=== PATIENT | female | born 1955 | race Caucasian/White ===

== ENCOUNTER 2020-10-29 07:51 | Outpatient (REF) | payer MEDICARE, SELFPAY ==
[2020-10-29 11:56] LABS: Alanine Aminotransferase 12 U/L (0-31); Albumin Level 4.1 g/dL (3.5-5.0); Alkaline Phosphatase 59 U/L (39-117); Anion Gap 15 (12-20); Aspartate Amino Transferase 8 U/L (5-31); Bilirubin Total 0.7 mg/dL (0.0-1.0); Blood Urea Nitrogen 20 mg/dL (9-16); Calcium 9.5 mg/dL (8.4-10.2); Carbon Dioxide 29 mmol/L (22-29); Chloride 99 mmol/L (96-108); Cholesterol 205 mg/dL; Estimated Glomerular Filt Rate > 60; Glucose Fasting 120 mg/dL (60-99); HDL Cholesterol 72 mg/dL; LDL Cholesterol Calculated 114 mg/dl; Potassium 3.7 mmol/l (3.3-5.1); Sodium 139 mmol/L (135-145); Total Protein 6.5 g/dL (6.5-8.0); Triglycerides 95 mg/dL
[2020-10-29 12:08] LABS: TSH reflex Free T4 0.73 mIU/mL (0.32-4.0)
== END 2020-10-29 07:52 | disposition home or self-care (01) ==
LOC: HO.HMGCLDS 07:51
PROVIDERS: PCP Nurse Practitioner Family; Visit Provider Nurse Practitioner Family
DX: I10 Essential (primary) hypertension (principal); M81.0 Age-related osteoporosis without current pathological fracture
CPT/HCPCS: 80053; 80061; 82306; 83735; 84443

== ENCOUNTER 2020-12-06 10:18 | Outpatient (REF) | payer MEDICARE, SELFPAY ==
[2020-12-06 14:21] LABS: Prothrombin Time 11.9 SEC (10.8-13.0)
[2020-12-06 14:27] LABS: MANUAL DIFF FLAG NO; Partial Thromboplastin Time 29.8 SEC (24.1-38.0)
[2020-12-06 14:34] LABS: Basophils Absolute Auto 0.1 X10*3/uL (0.0-0.2); Basophils Percent Auto 0.5 % (0-2); Eosinophils Absolute Auto 0.2 X10*3/uL (0.0-0.4); Eosinophils Percent Auto 1.6 % (0-4); Hematocrit 41.4 % (37-47); Hemoglobin 13.7 g/dl (12.0-16.0); Imm Gran Abs Auto 0.04 X10*3/uL (0.00-0.03); Imm Gran Pct Auto 0.4 % (0.0-0.4); Lymphocytes Absolute Auto 4.4 X10*3/uL (1.2-4.9); Lymphocytes Percent Auto 42.9 % (20-40); Mean Corpuscular HGB Conc 33.1 g/dl (31.0-35.0); Mean Corpuscular Hemoglobin 29.7 pg (27.0-33.0); Mean Corpuscular Volume 89.8 fL (80-98); Mean Platelet Volume 10.7 fL (9.4-12.3); Monocytes Absolute Auto 0.8 X10*3/uL (0.1-1.2); Monocytes Percent Auto 7.4 % (2-11); Neutrophils Absolute Auto 4.9 X10*3/uL (2.0-8.3); Neutrophils Percent Auto 47.2 % (45-73); Platelet Count 490 X10*3/uL (160-400); Red Blood Count 4.61 X10*6/uL (4.20-5.50); Red Cell Distribution Width 13.1 % (11.0-16.0); White Blood Count 10.4 X10*3/uL (4.8-10.8)
[2020-12-06 15:17] LABS: Estimated Average Glucose 137 mg/dL; Hemoglobin A1c % 6.4 %
== END 2020-12-06 10:19 | disposition home or self-care (01) ==
LOC: HO.10HDL 10:18
PROVIDERS: Visit Provider Nurse Practitioner Family
DX: R23.8 Other skin changes (principal); R73.01 Impaired fasting glucose; R79.89 Other specified abnormal findings of blood chemistry
CPT/HCPCS: 36415; 83036; 85025; 85610; 85730

== ENCOUNTER 2020-12-20 07:37 | Outpatient (REF) | payer MEDICARE, SELFPAY ==
[2020-12-20 10:14] LABS: MANUAL DIFF FLAG NO
[2020-12-20 10:19] LABS: Basophils Percent Auto 0.5 % (0-2); Eosinophils Absolute Auto 0.2 X10*3/uL (0.0-0.4); Eosinophils Percent Auto 1.9 % (0-4); Hemoglobin 13.6 g/dl (12.0-16.0); Imm Gran Abs Auto 0.03 X10*3/uL (0.00-0.03); Imm Gran Pct Auto 0.3 % (0.0-0.4); Lymphocytes Absolute Auto 4.4 X10*3/uL (1.2-4.9); Lymphocytes Percent Auto 50.5 % (20-40); Mean Corpuscular Hemoglobin 30.1 pg (27.0-33.0); Mean Corpuscular Volume 88.5 fL (80-98); Mean Platelet Volume 10.9 fL (9.4-12.3); Monocytes Absolute Auto 0.6 X10*3/uL (0.1-1.2); Monocytes Percent Auto 6.9 % (2-11); Neutrophils Absolute Auto 3.5 X10*3/uL (2.0-8.3); Neutrophils Percent Auto 39.9 % (45-73); Platelet Count 449 X10*3/uL (160-400); Red Blood Count 4.52 X10*6/uL (4.20-5.50); Red Cell Distribution Width 13.1 % (11.0-16.0); White Blood Count 8.8 X10*3/uL (4.8-10.8)
== END 2020-12-20 07:38 | disposition home or self-care (01) ==
LOC: HO.10HDL 07:37
PROVIDERS: Visit Provider Nurse Practitioner Family
DX: R79.89 Other specified abnormal findings of blood chemistry (principal)
CPT/HCPCS: 36415; 85025

== ENCOUNTER → 2021-01-02 11:00 | Outpatient (BNV) | payer MEDICARE, SELFPAY | PROVIDERS: Visit Provider Internal Medicine | DX: D47.3 Essential (hemorrhagic) thrombocythemia (principal) | CPT/HCPCS: 99202; 99203; 99213; 99214; G2211 ==

== ENCOUNTER → 2021-01-07 09:44 | Outpatient (BNVA) | payer MEDICARE, SELFPAY | PROVIDERS: PCP Nurse Practitioner Family; Visit Provider Internal Medicine Endocrinology, Diabetes & Metabolism | DX: M81.0 Age-related osteoporosis without current pathological fracture (principal); E55.9 Vitamin D deficiency, unspecified | CPT/HCPCS: 99202 ==

== ENCOUNTER 2021-01-09 07:59 | Outpatient (REF) | payer MEDICARE, SELFPAY ==
[2021-01-09 10:26] LABS: Calcium 9.5 mg/dL (8.4-10.2)
[2021-01-09 10:55] LABS: Free T4 (Free Thyroxine) 1.26 ng/dL (0.71-1.85); Thyroid Stimulating Hormone 2.37 uIU/mL (0.32-4.0); Vitamin D 25-OH Total 44.2 ng/mL (>30)
[2021-01-10 10:02] LABS: Calcium (PTHI) 9.6 mg/dL (8.6-10.4); PTHI 23 pg/mL (14-64)
[2021-01-13 13:42] LABS: VITAMIN D (1,25 OH) D3 69 pg/mL; Vit D (1,25-Dihydroxy) Total 69 pg/mL (18-72); Vitamin D (1,25 OH) D2 <8 pg/mL
[2021-01-13 21:27] LABS: N-Telopeptide 61 (see note); NTXCreaRU 150 mg/dL (20-275)
== END 2021-01-09 08:00 | disposition home or self-care (01) ==
LOC: HO.10HDL 07:59
PROVIDERS: Visit Provider Internal Medicine Endocrinology, Diabetes & Metabolism
DX: M81.0 Age-related osteoporosis without current pathological fracture (principal)
CPT/HCPCS: 36415; 82040; 82306; 82310; 82523; 82652; 83970; 84439; 84443

== ENCOUNTER 2021-01-11 10:40 | Outpatient (REF) | payer MEDICARE, SELFPAY ==
[2021-01-11 11:48] LABS: Creatinine, mg/dL 40.85
[2021-01-11 12:29] LABS: Creatinine, 24Hr Urine 0.8 G/Day (1.0-2.0); Total Volume 24 Hour Urine 1900 mL
[2021-01-12 16:37] LABS: Calcium, 24 Hr Urine 82 mg/24 h; Calcium/Creatinine Ratio 96 mg/g creat (30-275); Creatinine 24Hr Urine 0.86 g/24 h (0.50-2.15)
== END 2021-01-11 10:41 | disposition home or self-care (01) ==
LOC: HO.LNP 10:40
PROVIDERS: Visit Provider Internal Medicine Endocrinology, Diabetes & Metabolism
DX: M81.0 Age-related osteoporosis without current pathological fracture (principal)
CPT/HCPCS: 82340; 82570

== ENCOUNTER 2021-03-04 08:55 | Day surgery (SDC) | payer MEDICARE, SELFPAY ==
--- NOTE | 2021-02-27 08:24 | MHC.SHP ---
Pre-Procedural Eval Section A The patient is an INPATIENT: No The History & Physical has been completed within 30 days and I have reviewed it.: Yes Section B Chief Complaint: cataract Allergies: Allergies Allergy/AdvReac Type Severity Reaction Status Date / Time naproxen [From NAPROSYN] Allergy Severe GI PAIN Verified 11/07/20 09:53 oxycodone [OXYCODONE] Allergy Severe VOMITING Verified 11/07/20 09:53 sulfamethoxazole Allergy Severe FACIAL Verified 11/07/20 09:53 [From BACTRIM] SWELLING trimethoprim [From BACTRIM] Allergy Severe FACIAL Verified 11/07/20 09:53 SWELLING lisinopril [LISINOPRIL] Allergy Intermediate COUGH Verified 11/07/20 09:53 acetaminophen [Percocet] Allergy Unknown unknown Verified 11/07/20 09:53 Sulfa (Sulfonamide Allergy Unknown unknown Unverified 11/07/20 09:53 Antibiotics) Plan Diagnosis/Plan: Unchanged I have reviewed the history and physical and performed a pertinent physical examination on my patient. No changes have occurred unless specified.
[2021-02-27 14:55] VITALS: BMI 30.8
--- NOTE | 2021-03-01 12:51 | HO.ANESPROP2 ---
Documented by User: Gabrielle Olivaney 03/01/21 12:51 HPI - Anesthesia Eval Consult details Narrative: 65yo F for Right Cataract Extraction IOL Insertion PCP cleared No prev cataract on record [facility] Active Problems Active Problems: All Active Problems (Updated 02/27/21 @ 15:01 by Marleen Logan) Elevated fasting blood sugar (Acute) Bruises easily (Acute) Elevated platelet count (Acute) Pre-op evaluation (Acute) Vitamin D deficiency (Acute) Osteoporosis (Acute) HTN (hypertension) (Acute) Past Medical History Medical History Allergic rhinitis Arthritis Elevated cholesterol Elevated platelet count GERD (gastroesophageal reflux disease) HTN (hypertension) Hypothyroid Osteoporosis Vitamin D deficiency Family History Family History Father Emphysema, unspecified Mother No problems noted. Paternal Aunt Pancreatic cancer Maternal Grandmother Pancreatic cancer Paternal Aunt Stroke Paternal Uncle Stroke Heart disease Surgical History Surgical History H/O colonoscopy History of section History of excision of pilonidal cyst History of left knee replacement History of shoulder surgery Hx of arthroscopic knee surgery Social History Social History Are you a primary hospice home care coordinator to a significant other at home: No Do you presently have visiting nurse or other home services: No Alcohol intake: current Alcohol intake frequency: holidays/special occasions only Alcohol type: wine Smoking Status: Former smoker Tobacco Type: Cigarette Smoked in Last 30 Days: No Smoking Quit Date: 1998 Use of substances other than those prescribed or required for medical reasons: No Have you been hit, kicked, punched, or otherwise hurt by someone within the past year? If so, by whom?: No Advance Directives Information Provided: No Recently lost weight without trying: No Meds Allergies Allergy/AdvReac Type Severity Reaction Status Date / Time Influenza Virus Vaccines Allergy Severe arm Verified 02/27/21 15:06 swelling naproxen [From NAPROSYN] Allergy Severe GI PAIN Verified 11/07/20 09:53 oxycodone [OXYCODONE] Allergy Severe VOMITING Verified 11/07/20 09:53 sulfamethoxazole Allergy Severe FACIAL Verified 11/07/20 09:53 [From BACTRIM] SWELLING trimethoprim [From BACTRIM] Allergy Severe FACIAL Verified 11/07/20 09:53 SWELLING lisinopril [LISINOPRIL] Allergy Intermediate COUGH Verified 11/07/20 09:53 Home Medications Medication Instructions Recorded Confirmed Last Taken Type atenolol 25 mg tablet 25 mg PO DAILY 11/07/20 02/27/21 03/04/21 History fenofibrate 54 mg tablet 54 mg PO DAILY 11/07/20 02/27/21 Unknown History hydrochlorothiazide 25 mg tablet 25 mg PO DAILY 11/07/20 02/27/21 Unknown History omeprazole 40 mg capsule,delayed 40 mg PO DAILY 11/07/20 02/27/21 03/04/21 History release potassium chloride 10 mEq 10 meq PO QPM 11/07/20 02/27/21 Unknown History tablet,extended release(part/cryst) cetirizine 10 mg tablet 20 mg PO BID 01/07/21 02/27/21 03/04/21 History atorvastatin 60 mg PO DAILY 01/30/21 02/27/21 Unknown History Exam Exam Date and Time: March 01, 2021 1251 Height,Weight and Vital Signs: Height 5 ft 1 in Weight 73.936 kg Assessment and Plan Assessment Anesthesia Assessment: Chart Reviewed Documented by User: Gordon López 03/04/21 10:22 [facility] Past Medical History Medical History Allergic rhinitis Arthritis Elevated cholesterol Elevated platelet count GERD (gastroesophageal reflux disease) HTN (hypertension) Hypothyroid Osteoporosis Vitamin D deficiency Family History Family History Father Emphysema, unspecified Mother No problems noted. Paternal Aunt Pancreatic cancer Maternal Grandmother Pancreatic cancer Paternal Aunt Stroke Paternal Uncle Stroke Heart disease Surgical History Surgical History H/O colonoscopy History of section History of excision of pilonidal cyst History of left knee replacement History of shoulder surgery Hx of arthroscopic knee surgery Social History Social History Are you a primary hospice home care coordinator to a significant other at home: No Do you presently have visiting nurse or other home services: No Alcohol intake: current Alcohol intake frequency: holidays/special occasions only Alcohol type: wine Smoking Status: Former smoker Tobacco Type: Cigarette Smoked in Last 30 Days: No Smoking Quit Date: 1998 Use of substances other than those prescribed or required for medical reasons: No Have you been hit, kicked, punched, or otherwise hurt by someone within the past year? If so, by whom?: No Advance Directives Information Provided: No Recently lost weight without trying: No Meds Allergies Allergy/AdvReac Type Severity Reaction Status Date / Time Influenza Virus Vaccines Allergy Severe arm Verified 02/27/21 15:06 swelling naproxen [From NAPROSYN] Allergy Severe GI PAIN Verified 11/07/20 09:53 oxycodone [OXYCODONE] Allergy Severe VOMITING Verified 11/07/20 09:53 sulfamethoxazole Allergy Severe FACIAL Verified 11/07/20 09:53 [From BACTRIM] SWELLING trimethoprim [From BACTRIM] Allergy Severe FACIAL Verified 11/07/20 09:53 SWELLING lisinopril [LISINOPRIL] Allergy Intermediate COUGH Verified 11/07/20 09:53 Home Medications Medication Instructions Recorded Confirmed Last Taken Type atenolol 25 mg tablet 25 mg PO DAILY 11/07/20 02/27/21 03/04/21 History fenofibrate 54 mg tablet 54 mg PO DAILY 11/07/20 02/27/21 Unknown History hydrochlorothiazide 25 mg tablet 25 mg PO DAILY 11/07/20 02/27/21 Unknown History omeprazole 40 mg capsule,delayed 40 mg PO DAILY 11/07/20 02/27/21 03/04/21 History release potassium chloride 10 mEq 10 meq PO QPM 11/07/20 02/27/21 Unknown History tablet,extended release(part/cryst) cetirizine 10 mg tablet 20 mg PO BID 01/07/21 02/27/21 03/04/21 History atorvastatin 60 mg PO DAILY 01/30/21 02/27/21 Unknown History Exam Airway Mallampati Class: II TM Dist: >3cm Neck ROM: Full Loose/Missing/Broken Teeth: No Heart: [id number] Lungs: cta b/l Assessment and Plan Assessment Anesthesia Assessment: Anesthesia Plan Discussed, PAT Visit and Chart Reviewed Final Anesthetic Review NPO: Yes ASA Class: III Final Preanesthetic Review: No Changes in Pt Med Stat, Meds/Allgs Chart Reviewed, Consent Obtained/Reviewed and Anes Risks/Benef Reviewed Patient Risk: Intermediate Procedure Risk: Low Assessment/Block/Sedation in SS: Assess/Block/Sedation-SS Anesthetic Plan Anesthetic Plan: MAC: and Agree w/ Assess. and Plan Disposition: Standard PACU
[2021-03-04 09:52] VITALS: BP 155/66; PULSE 62; RESP 16; TEMP 36.8; O2SAT 98
[2021-03-04] MEDS: Tetracaine HCl/PF 0.5% Oph Sol 4 ML DROPS 1 DROP EYE-RIGHT (09:56)
[2021-03-04] MEDS: Tropicamide 1 % Ophth Sol 3 ML BTL 1 DROP EYE-RIGHT ×3 (09:57→10:06)
[2021-03-04] MEDS: Phenylephrine HCL 2.5% Oph SoL 2 ML BOTTLE 1 DROP EYE-RIGHT ×3 (10:00→10:08)
[2021-03-04] MEDS: Lactated Ringers 500 ML 50 ML IV (10:15)
--- NOTE | 2021-03-04 11:19 | HO.PNOPHT ---
Ophthalmology Procedure Procedure Date of Service: 03/04/21 Ophthalmology Viscoelastic: Shnana Salguerot Dual Pack Pro Ophthalmology Lenses: TECXIN [id number] (16) Procedure Notes: PREOPERATIVE DIAGNOSIS: Decreased visual acuity right eye secondary to cataract POSTOPERATIVE DIAGNOSIS: Same PROCEDURE: Right cataract extraction with intraocular lens insertion SURGEON: Umang Hannah M.D. ANESTHESIA: Topical/MAC ESTIMATED BLOOD LOSS: None COMPLICATIONS: None After obtaining informed consent, the patient was brought to the operating room suite and placed in the supine position. After adequate sedation per anesthesia, topical drops of Tetracaine were given to the right eye. The eye was then prepped and draped in the usual sterile fashion. The operating room microscope was then positioned over the operative eye and a lid speculum placed. A paracentesis was created. Viscoelastic was then instilled into the anterior chamber. A three plane incision was then created temporally, utilizing a 2.85 mm keratome. Capsulotomy forceps were then utilized to create a circular tear capsulotomy. Hydrodissection and hydrodelineation were carried out until adequate mobilization of the nucleus occurred. Phacoemulsification was then utilized to remove the dense central nucleus followed by removal of the cortical material utilizing the automated aspiration irrigation unit. Viscoelastic was instilled into the posterior capsular bag followed by placement of a posterior chamber intraocular lens without difficulty. The residual Viscoelastic was then removed utilizing the automated IA machine. The wound was checked and found to be watertight. The patient tolerated the procedure well and the lid speculum was removed. Intracameral injection of Vigamox 0.1 mL followed by a subtenon injection of Kenalog-40 0.2 mL were administered. The patient will be seen in the a.m.
[2021-03-04 11:20] VITALS: BP 140/60; PULSE 58; RESP 16; TEMP 37.1; O2SAT 100
[2021-03-04] MEDS: Acetaminophen 325 MG TABLET 650 MG PO (11:22)
== END 2021-03-04 12:09 | disposition home or self-care (01) ==
PROVIDERS: PCP Nurse Practitioner Family; Visit Provider Ophthalmology
PROC: (CPT 66985; principal; 2021-03-04 11:40)
DX: H25.11 Age-related nuclear cataract, right eye (principal); I10 Essential (primary) hypertension; I49.5 Sick sinus syndrome; Z79.899 Other long term (current) drug therapy; Z87.891 Personal history of nicotine dependence
CPT/HCPCS: 66984; J2250; J3300; V2632

== ENCOUNTER 2021-03-11 07:07 | Day surgery (SDC) | payer MEDICARE, SELFPAY ==
[2021-02-27 15:10] VITALS: BMI 30.8
--- NOTE | 2021-03-07 08:18 | MHC.SHP ---
Pre-Procedural Eval Section A The patient is an INPATIENT: No The History & Physical has been completed within 30 days and I have reviewed it.: Yes Section B Chief Complaint: cataract Allergies: Allergies Allergy/AdvReac Type Severity Reaction Status Date / Time Influenza Virus Vaccines Allergy Severe arm Verified 02/27/21 15:06 swelling naproxen [From NAPROSYN] Allergy Severe GI PAIN Verified 11/07/20 09:53 oxycodone [OXYCODONE] Allergy Severe VOMITING Verified 11/07/20 09:53 sulfamethoxazole Allergy Severe FACIAL Verified 11/07/20 09:53 [From BACTRIM] SWELLING trimethoprim [From BACTRIM] Allergy Severe FACIAL Verified 11/07/20 09:53 SWELLING lisinopril [LISINOPRIL] Allergy Intermediate COUGH Verified 11/07/20 09:53 Plan Diagnosis/Plan: Unchanged I have reviewed the history and physical and performed a pertinent physical examination on my patient. No changes have occurred unless specified.
--- NOTE | 2021-03-08 09:09 | HO.ANESPROP2 ---
Documented by User: Gabrielle Christy 03/08/21 09:10 HPI - Anesthesia Eval Consult details Narrative: 65yo F for Left Cataract Extraction IOL Insertion Right eye 03/04/21 with TIVA: Midaz 2 PMFSH Active Problems Active Problems: All Active Problems (Updated 02/27/21 @ 15:01 by Marleen Logan) Elevated fasting blood sugar (Acute) Bruises easily (Acute) Elevated platelet count (Acute) Pre-op evaluation (Acute) Vitamin D deficiency (Acute) Osteoporosis (Acute) HTN (hypertension) (Acute) Past Medical History Medical History Allergic rhinitis Arthritis Elevated cholesterol Elevated platelet count GERD (gastroesophageal reflux disease) HTN (hypertension) Hypothyroid Osteoporosis Vitamin D deficiency Family History Family History Father Emphysema, unspecified Mother No problems noted. Paternal Aunt Pancreatic cancer Maternal Grandmother Pancreatic cancer Paternal Aunt Stroke Paternal Uncle Stroke Heart disease Surgical History Surgical History (Updated 03/11/21 @ 08:24 by Noreen Gomez) H/O colonoscopy History of section History of excision of pilonidal cyst History of left knee replacement History of shoulder surgery Hx of arthroscopic knee surgery S/P right cataract extraction Social History Social History Are you a primary college and career counselor to a significant other at home: No Do you presently have visiting nurse or other home services: No Alcohol intake: current Alcohol intake frequency: holidays/special occasions only Alcohol type: wine Smoking Status: Former smoker Tobacco Type: Cigarette Smoked in Last 30 Days: No Smoking Quit Date: 1998 Use of substances other than those prescribed or required for medical reasons: No Have you been hit, kicked, punched, or otherwise hurt by someone within the past year? If so, by whom?: No Advance Directives Information Provided: No Recently lost weight without trying: No Meds Allergies Allergy/AdvReac Type Severity Reaction Status Date / Time Influenza Virus Vaccines Allergy Severe arm Verified 02/27/21 15:06 swelling naproxen [From NAPROSYN] Allergy Severe GI PAIN Verified 11/07/20 09:53 oxycodone [OXYCODONE] Allergy Severe VOMITING Verified 11/07/20 09:53 sulfamethoxazole Allergy Severe FACIAL Verified 11/07/20 09:53 [From BACTRIM] SWELLING trimethoprim [From BACTRIM] Allergy Severe FACIAL Verified 11/07/20 09:53 SWELLING lisinopril [LISINOPRIL] Allergy Intermediate COUGH Verified 11/07/20 09:53 Home Medications Medication Instructions Recorded Confirmed Last Taken Type atenolol 25 mg tablet 25 mg PO DAILY 11/07/20 02/27/21 03/04/21 History fenofibrate 54 mg tablet 54 mg PO DAILY 11/07/20 02/27/21 Unknown History omeprazole 40 mg capsule,delayed 40 mg PO DAILY 11/07/20 02/27/21 03/04/21 History release potassium chloride 10 mEq 10 meq PO QPM 11/07/20 02/27/21 Unknown History tablet,extended release(part/cryst) cetirizine 10 mg tablet 20 mg PO BID 01/07/21 02/27/21 03/04/21 History atorvastatin 60 mg PO DAILY 01/30/21 02/27/21 Unknown History Exam Exam Date and Time: March 08, [id number] Height,Weight and Vital Signs: Height 5 ft 1 in Weight 73.936 kg Assessment and Plan Assessment Anesthesia Assessment: Chart Reviewed Documented by User: Noreen Gomez 03/11/21 08:28 [facility] Past Medical History Medical History Allergic rhinitis Arthritis Elevated cholesterol Elevated platelet count GERD (gastroesophageal reflux disease) HTN (hypertension) Hypothyroid Osteoporosis Vitamin D deficiency Family History Family History Father Emphysema, unspecified Mother No problems noted. Paternal Aunt Pancreatic cancer Maternal Grandmother Pancreatic cancer Paternal Aunt Stroke Paternal Uncle Stroke Heart disease Family history of problems with anesthesia: No Surgical History Surgical History (Updated 03/11/21 @ 08:24 by Noreen Gomez) H/O colonoscopy History of section History of excision of pilonidal cyst History of left knee replacement History of shoulder surgery Hx of arthroscopic knee surgery S/P right cataract extraction History of Problems with Anesthesia: Yes (Was uncomfortable during right eye surgery) Social History Social History Are you a primary college and career counselor to a significant other at home: No Do you presently have visiting nurse or other home services: No Alcohol intake: current Alcohol intake frequency: holidays/special occasions only Alcohol type: wine Smoking Status: Former smoker Tobacco Type: Cigarette Smoked in Last 30 Days: No Smoking Quit Date: 1998 Use of substances other than those prescribed or required for medical reasons: No Have you been hit, kicked, punched, or otherwise hurt by someone within the past year? If so, by whom?: No Advance Directives Information Provided: No Recently lost weight without trying: No Meds Allergies Allergy/AdvReac Type Severity Reaction Status Date / Time Influenza Virus Vaccines Allergy Severe arm Verified 02/27/21 15:06 swelling naproxen [From NAPROSYN] Allergy Severe GI PAIN Verified 11/07/20 09:53 oxycodone [OXYCODONE] Allergy Severe VOMITING Verified 11/07/20 09:53 sulfamethoxazole Allergy Severe FACIAL Verified 11/07/20 09:53 [From BACTRIM] SWELLING trimethoprim [From BACTRIM] Allergy Severe FACIAL Verified 11/07/20 09:53 SWELLING lisinopril [LISINOPRIL] Allergy Intermediate COUGH Verified 11/07/20 09:53 Home Medications Medication Instructions Recorded Confirmed Last Taken Type atenolol 25 mg tablet 25 mg PO DAILY 11/07/20 02/27/21 03/04/21 History fenofibrate 54 mg tablet 54 mg PO DAILY 11/07/20 02/27/21 Unknown History omeprazole 40 mg capsule,delayed 40 mg PO DAILY 11/07/20 02/27/21 03/04/21 History release potassium chloride 10 mEq 10 meq PO QPM 11/07/20 02/27/21 Unknown History tablet,extended release(part/cryst) cetirizine 10 mg tablet 20 mg PO BID 01/07/21 02/27/21 03/04/21 History atorvastatin 60 mg PO DAILY 01/30/21 02/27/21 Unknown History Exam Height,Weight and Vital Signs: Vital Signs Temp Pulse Resp BP Pulse Ox 03/11/21 08:09 97.6 F 59 18 149/60 H 98 Airway Mallampati Class: III (Small mouth) TM Dist: >3cm Neck ROM: Full Heart: RRR Lungs: CTAB Assessment and Plan Assessment Anesthesia Assessment: Anesthesia Plan Discussed and Chart Reviewed Final Anesthetic Review NPO: Yes ASA Class: II Final Preanesthetic Review: No Changes in Pt Med Stat, Meds/Allgs Chart Reviewed, Consent Obtained/Reviewed and Anes Risks/Benef Reviewed Patient Risk: Low Procedure Risk: Low Assessment/Block/Sedation in SS: Assess/Block/Sedation-SS Anesthetic Plan Anesthetic Plan: MAC: Disposition: Standard PACU
[2021-03-11] MEDS: Tetracaine HCl/PF 0.5% Oph Sol 4 ML DROPS 1 DROP EYE-LEFT (08:05)
[2021-03-11] MEDS: Tropicamide 1 % Ophth Sol 3 ML BTL 1 DROP EYE-LEFT ×3 (08:07→08:29)
[2021-03-11 08:09] VITALS: BP 149/60; PULSE 59; RESP 18; TEMP 36.4; O2SAT 98
[2021-03-11] MEDS: Phenylephrine HCL 2.5% Oph SoL 2 ML BOTTLE 1 DROP EYE-LEFT ×3 (08:17→08:33)
[2021-03-11] MEDS: Lactated Ringers 500 ML 50 ML IV (08:22)
--- NOTE | 2021-03-11 09:23 | HO.PNOPHT ---
Ophthalmology Procedure Procedure Date of Service: 03/11/21 Ophthalmology Viscoelastic: Healon Duet Dual Pack Pro Ophthalmology Lenses: TECNIS [id number] (15.5) Procedure Notes: PREOPERATIVE DIAGNOSIS: Decreased visual acuity left eye secondary to cataract POSTOPERATIVE DIAGNOSIS: Same PROCEDURE: Left cataract extraction with intraocular lens insertion SURGEON: Umang Hannah M.D. ANESTHESIA: Topical/MAC ESTIMATED BLOOD LOSS: None COMPLICATIONS: None After obtaining informed consent, the patient was brought to the operation room suite and placed in the supine position. After adequate sedation per anesthesia, topical drops of Tetracaine were given to the left eye. The eye was then prepped and draped in the usual sterile fashion. The operating room microscope was then positioned over the operative eye and a lid speculum placed. A paracentesis was created. Viscoelastic was then instilled into the anterior chamber. A three plane incision was then created temporally, utilizing a 2.85 mm keratome. Capsulotomy forceps were then utilized to create a circular tear capsulotomy. Hydrodissection and hydrodelineation were carried out until adequate mobilization of the nucleus occurred. Phacoemulsification was then utilized to remove the dense central nucleus followed by removal of the cortical material utilizing the automated aspiration irrigation unit. Viscoat elastic was instilled into the posterior capsular bag followed by placement of a posterior chamber intraocular lens without difficulty. The residual Viscoat elastic was then removed utilizing the automated IA machine. The wound was check and found to be watertight. The patient tolerated the procedure well and the lid speculum was removed. Intracameral injection of Vigamox 0.1 mL followed by a subtenon injection of Kenalog-40 0.2 mL were administered. The patient will be seen in the a.m.
[2021-03-11 09:28] VITALS: BP 113/89; PULSE 65; RESP 15; TEMP 36.5; O2SAT 95
== END 2021-03-11 09:56 | disposition home or self-care (01) ==
PROVIDERS: PCP Nurse Practitioner Family; Visit Provider Ophthalmology
PROC: (CPT 66985; principal; 2021-03-11 09:10)
DX: H25.12 Age-related nuclear cataract, left eye (principal); H54.7 Unspecified visual loss; I10 Essential (primary) hypertension; Z79.899 Other long term (current) drug therapy; Z88.2 Allergy status to sulfonamides; Z88.8 Allergy status to other drugs, medicaments and biological substances; Z87.891 Personal history of nicotine dependence
CPT/HCPCS: 66984; J2250; J3010; J3300; V2632

== ENCOUNTER 2021-09-06 09:45 | Outpatient (REF) | payer MEDICARE, SELFPAY ==
--- NOTE | ~2021-09-06 | MM_ITS ---
EXAMINATION: MM DIAGNOSTIC DIGITAL BREAST TOMOSYNTHESIS, BILATERAL CLINICAL INFORMATION: Due for yearly. Also follow-up probable benign calcifications upper outer right breast. The lifetime risk of breast cancer based on the Tyrer-Cuzick Model is 3%. COMPARISON: Mammography: 08/28/2020, 12/07/2019, 06/01/2019, 05/25/2019 (BI-RADS 0), 04/19/2018 TECHNIQUE: Digital breast tomosynthesis is performed in both the craniocaudal and mediolateral oblique views along with computer-aided detection (CAD). Synthesized 2D images are generated from the tomosynthesis. Additional magnification right CC and magnification right ML views are obtained. FINDINGS: There are scattered areas of fibroglandular density (ACR BI-RADS breast composition Category b). Parenchymal pattern is similar to prior studies. There is no developing density or interval mass or architectural abnormality. The axilla and skin contours are unremarkable. Calcifications for follow-up mid upper outer right breast appears slightly coarser when compared with prior diagnostic exams. The appearances of probable fibroadenomatous changes. There are no interval suspicious calcifications. They are now considered to be benign. Results are provided to the patient at time of visit by the technologist. MM/MM tomosynthesis diagnostic BI IMPRESSION: 1. No mammographic evidence of malignancy. 2. Right breast calcifications for follow-up are slightly coarser over time suggesting fibroadenomatous change and now considered to be benign. ASSESSMENT: BI-RADS 2: Benign RECOMMENDATION: Routine annual mammography screening. This patient's information was entered into a reminder system with a target due date for their next mammogram.
== END 2021-09-06 09:46 | disposition home or self-care (01) ==
LOC: HO.MAMMO 09:45
PROVIDERS: Visit Provider Nurse Practitioner Family
DX: R92.1 Mammographic calcification found on diagnostic imaging of breast (principal)
CPT/HCPCS: 77062; 77066

== ENCOUNTER 2022-01-02 08:27 | Outpatient (REF) | payer MEDICARE, SELFPAY ==
[2022-01-02 10:34] LABS: Appearance Urine HAZY; Color Urine YELLOW; Glucose Urine UA NEG (NEG); Leukocyte Esterase Urine NEG (NEG); Nitrite Urine NEG (NEG); Specific Gravity - Urine 1.015 (1.005-1.025); Urine Blood NEG (NEG); Urine Ketones NEG (NEG); Urine Protein NEG (NEG-TRACE)
[2022-01-02 10:35] LABS: MANUAL DIFF FLAG NO
[2022-01-02 10:42] LABS: Basophils Percent Auto 0.2 % (0-2); Hematocrit 39.2 % (37.0-47.0); Hemoglobin 12.9 g/dl (12.0-16.0); Imm Gran Abs Auto 0.04 X10*3/uL (0.00-0.03); Imm Gran Pct Auto 0.3 % (0.0-0.4); Lymphocytes Absolute Auto 2.5 X10*3/uL (1.2-4.9); Lymphocytes Percent Auto 20.5 % (20-40); Mean Corpuscular HGB Conc 32.9 g/dl (31.0-35.0); Mean Corpuscular Hemoglobin 27.6 pg (27.0-33.0); Mean Corpuscular Volume 83.8 fL (80.0-98.0); Monocytes Absolute Auto 0.7 X10*3/uL (0.1-1.2); Monocytes Percent Auto 5.8 % (2-11); Neutrophils Absolute Auto 8.9 x10*3/uL (2.0-8.3); Neutrophils Percent Auto 73.2 % (45-73); Platelet Count 548 X10*3/uL (160-400); Red Blood Count 4.68 X10*6/uL (4.20-5.50); Red Cell Distribution Width 13.4 % (11.0-16.0); White Blood Count 12.1 X10*3/uL (4.8-10.8)
[2022-01-02 10:50] LABS: Alanine Aminotransferase 16 U/L (0-31); Albumin Level 4.3 g/dL (3.5-5.0); Alkaline Phosphatase 84 U/L (39-117); Anion Gap 13 (12-20); Aspartate Amino Transferase 11 U/L (5-31); Bilirubin Total 0.5 mg/dL (0.0-1.0); Blood Urea Nitrogen 18 mg/dL (9-16); C Reactive Protein 0.11 mg/dL (< or = 0.50); Calcium 10.2 mg/dL (8.4-10.2); Carbon Dioxide 27 mmol/L (22-29); Chloride 102 mmol/L (96-108); Cholesterol 197 mg/dL; Estimated Glomerular Filt Rate > 60; Glucose Fasting 119 mg/dL (60-99); HDL Cholesterol 57 mg/dL; LDL Cholesterol Calculated 116 mg/dl; Potassium 4.4 mmol/L (3.3-5.1); Rheumatoid Factor < 15.0 IU/mL (<15.0); Sodium 138 mmol/L (135-145); Total Protein 6.8 g/dL (6.5-8.0); Triglycerides 121 mg/dL
[2022-01-02 11:11] LABS: TSH reflex Free T4 1.07 uIU/mL (0.32-4.0); Vitamin D 25-OH Total 47.5 ng/mL (>30)
[2022-01-02 11:29] LABS: Erythrocyte Sedimentation Rate 5 MM/HR (0-20)
[2022-01-03 06:31] LABS: Lyme Abs Screen <0.90 index
[2022-01-03 16:57] LABS: IgA 257 mg/dL (70-320); IgG 657 mg/dL (600-1540); IgM 42 mg/dL (50-300)
[2022-01-03 17:51] LABS: Antibody to SS-A Antigen <1.0 NEG AI (<1.0 NEG); Antibody to SS-B Antigen <1.0 NEG AI (<1.0 NEG)
[2022-01-04 14:11] LABS: Anti Nuclear Antibody Screen POSITIVE (NEGATIVE)
[2022-01-06 16:26] LABS: Cyclic Citrullinated Peptide <16 UNITS
[2022-01-15 19:42] LABS: Histamine Release <16 % (<16); TSH 1.24 mIU/L (0.40-4.50); Thyroglobulin Abs <1 IU/mL (< OR = 1)
== END 2022-01-02 08:28 | disposition home or self-care (01) ==
LOC: HO.10HDL 08:27
PROVIDERS: Absent Provider Internal Medicine; Visit Provider Nurse Practitioner Family
DX: Z00.00 Encounter for general adult medical examination without abnormal findings (principal); E55.9 Vitamin D deficiency, unspecified; M81.0 Age-related osteoporosis without current pathological fracture; R52 Pain, unspecified; J01.81 Other acute recurrent sinusitis; J30.1 Allergic rhinitis due to pollen; J45.30 Mild persistent asthma, uncomplicated; L30.9 Dermatitis, unspecified; L29.9 Pruritus, unspecified; M25.50 Pain in unspecified joint
CPT/HCPCS: 36415; 80053; 80061; 81003; 82306; 82784; 84443; 85025; 85652; 86038; 86039; 86140; 86200; 86235; 86343; 86376; 86431; 86617; 86618; 86800

== ENCOUNTER 2022-01-09 12:09 | Outpatient (REF) | payer MEDICARE, SELFPAY ==
[2022-01-09 13:21] LABS: MANUAL DIFF FLAG NO
[2022-01-09 13:26] LABS: Basophils Absolute Auto 0.1 X10*3/uL (0.0-0.2); Basophils Percent Auto 0.6 % (0-2); Eosinophils Absolute Auto 0.1 X10*3/uL (0.0-0.4); Hematocrit 38.5 % (37.0-47.0); Hemoglobin 12.8 g/dl (12.0-16.0); Imm Gran Abs Auto 0.02 X10*3/uL (0.00-0.03); Imm Gran Pct Auto 0.2 % (0.0-0.4); Lymphocytes Absolute Auto 3.9 X10*3/uL (1.2-4.9); Lymphocytes Percent Auto 36.8 % (20-40); Mean Corpuscular HGB Conc 33.2 g/dl (31.0-35.0); Mean Corpuscular Hemoglobin 27.5 pg (27.0-33.0); Mean Corpuscular Volume 82.8 fL (80.0-98.0); Mean Platelet Volume 10.5 fL (9.4-12.3); Monocytes Absolute Auto 0.9 X10*3/uL (0.1-1.2); Neutrophils Absolute Auto 5.7 x10*3/uL (2.0-8.3); Neutrophils Percent Auto 53.4 % (45-73); Platelet Count 573 X10*3/uL (160-400); Red Blood Count 4.65 X10*6/uL (4.20-5.50); Red Cell Distribution Width 13.5 % (11.0-16.0); White Blood Count 10.6 X10*3/uL (4.8-10.8)
[2022-01-09 14:02] LABS: Appearance Urine CLEAR; Color Urine YELLOW; Glucose Urine UA NEG (NEG); Leukocyte Esterase Urine NEG (NEG); Nitrite Urine NEG (NEG); PH 6.5 (5.0-8.0); Specific Gravity - Urine 1.015 (1.005-1.025); Urine Blood NEG (NEG); Urine Ketones NEG (NEG); Urine Protein NEG (NEG-TRACE)
== END 2022-01-09 12:10 | disposition home or self-care (01) ==
LOC: HO.10HDL 12:09
PROVIDERS: Visit Provider Nurse Practitioner Family
DX: D72.829 Elevated white blood cell count, unspecified (principal)
CPT/HCPCS: 36415; 81003; 85025; 87086

== ENCOUNTER 2022-01-31 08:15 | Outpatient (REF) | payer MEDICARE, SELFPAY ==
--- NOTE | ~2022-01-31 | MM_ITS ---
EXAMINATION: BONE DENSITOMETRY CLINICAL INDICATION: Osteoporosis. COMPARISON: Previous BD dated 12/02/2019 and baseline BD dated 04/01/2007. TECHNIQUE: Using a [employer] DXA System (software version: 13.1) manufactured by [employer], dual-energy x-ray absorptiometry was performed of the lumbar spine and left hip. The images are of good technical quality. Summary results are attached. FINDINGS: AP SPINE L1-L4: Current: BMD 0.956 g/cm2, Z-score -0.5, T-score -1.9, osteopenia, 3.8% increase from previous, 15.4% decrease from baseline (<5% change is not significant). Prior: BMD 0.921 g/cm2. Baseline: BMD 1.130 g/cm2. LEFT FEMUR, NECK: Current: BMD 0.651 g/cm2, Z-score -1.4, T-score -2.8, osteoporosis. Prior: BMD 0.667 g/cm2. Baseline: BMD 0.980 g/cm2. LEFT FEMUR, TOTAL: Current: BMD 0.779 g/cm2, Z-score -0.7, T-score -1.8, osteopenia, 4.2% decrease from previous, 28.7% decrease from baseline (<5% change is not significant). Prior: BMD 0.813 g/cm2. Baseline: BMD 1.092 g/cm2. IDENTIFIED RISK FACTORS: Early menopause, family history (parent hip fracture), osteoporosis, secondary osteoporosis, Thiazide. HISTORY OF FRACTURE: None listed. MEDICATIONS: Vitamin D. MM/XR DEXA axial skeleton IMPRESSION: 1. DIAGNOSIS: Osteoporosis based on the lowest T-score value of -2.8 in the femoral neck applying World Health Organization criteria. 2. 10-YEAR FRACTURE RISK PREDICTION, FRAX: According to the guidelines, FRAX calculation should only be performed on patients in the osteopenia bone density category. Therefore, FRAX was not performed on this patient. 3. Treatment Recommendations: NOF guidelines recommend consideration for treatment in postmenopausal women and men age 50 and older presenting with the following: -A hip or vertebral (clinical or morphometric) fracture. -T-score less than or equal to -2.5 at the femoral neck or spine after appropriate evaluation to exclude secondary causes. -Low bone mass at the hip or spine and a 10-year fracture probability by FRAX of greater than or equal to 3% for hip fracture or greater than or equal to 20% for major osteoporotic fracture based on the [place] adapted WHO algorithm. 4. Other Recommendations: All treatment decisions require clinical judgment and consideration of individual patient factors, including patient preferences, comorbidities, previous drug use, risk factors not captured in the FRAX model (e.g. frailty, falls, vitamin D deficiency, increased bone turnover, interval significant decline in bone density) and possible under or overestimation of fracture risk by FRAX. Additional medical evaluation for secondary cause of low bone mineral density may be appropriate. FUTURE SCAN RECOMMENDATION: People with diagnosed cases of osteoporosis or at high risk for fracture should have regular bone mineral density tests. For patients eligible for Medicare, routine testing is allowed once every 2 years. The testing frequency can be increased to one year for patients who have rapidly progressing disease, those who are receiving or discontinuing medical therapy to restore bone mass, or have additional risk factors.
== END 2022-01-31 08:16 | disposition home or self-care (01) ==
LOC: HO.MAMMO 08:15
PROVIDERS: PCP Nurse Practitioner Family; Visit Provider Nurse Practitioner Family
DX: Z13.820 Encounter for screening for osteoporosis (principal); M81.0 Age-related osteoporosis without current pathological fracture; Z78.0 Asymptomatic menopausal state; Z79.899 Other long term (current) drug therapy
CPT/HCPCS: 77080

== ENCOUNTER 2022-07-10 08:16 | Outpatient (REF) | payer MEDICARE, SELFPAY ==
[2022-07-10 10:51] LABS: Appearance Urine CLEAR; Color Urine YELLOW; Glucose Urine UA NEG (NEG); Leukocyte Esterase Urine NEG (NEG); Nitrite Urine NEG (NEG); PH 7.5 (5.0-8.0); Specific Gravity - Urine 1.015 (1.005-1.025); Urine Blood NEG (NEG); Urine Ketones NEG (NEG); Urine Protein NEG (NEG-TRACE)
[2022-07-10 10:54] LABS: MANUAL DIFF FLAG NO
[2022-07-10 11:14] LABS: Basophils Absolute Auto 0.1 X10*3/uL (0.0-0.2); Basophils Percent Auto 0.8 % (0-2); Eosinophils Absolute Auto 0.3 X10*3/uL (0.0-0.4); Eosinophils Percent Auto 3.8 % (0-4); Hematocrit 38.4 % (37.0-47.0); Imm Gran Abs Auto 0.02 X10*3/uL (0.00-0.03); Imm Gran Pct Auto 0.3 % (0.0-0.4); Lymphocytes Absolute Auto 3.3 X10*3/uL (1.2-4.9); Lymphocytes Percent Auto 44.8 % (20-40); Mean Corpuscular HGB Conc 33.9 g/dl (31.0-35.0); Mean Corpuscular Hemoglobin 28.8 pg (27.0-33.0); Monocytes Absolute Auto 0.6 X10*3/uL (0.1-1.2); Monocytes Percent Auto 8.3 % (2-11); Neutrophils Absolute Auto 3.1 x10*3/uL (2.0-8.3); Platelet Count 426 X10*3/uL (160-400); Red Blood Count 4.52 X10*6/uL (4.20-5.50); Red Cell Distribution Width 13.8 % (11.0-16.0); White Blood Count 7.4 X10*3/uL (4.8-10.8)
[2022-07-10 11:42] LABS: TSH reflex Free T4 1.76 uIU/mL (0.32-4.0)
[2022-07-10 12:15] LABS: Alanine Aminotransferase 13 U/L (0-31); Alkaline Phosphatase 80 U/L (39-117); Anion Gap 19 (12-20); Aspartate Amino Transferase 14 U/L (5-31); Bilirubin Total 0.5 mg/dL (0.0-1.0); Blood Urea Nitrogen 8 mg/dL (9-16); Calcium 9.2 mg/dL (8.4-10.2); Carbon Dioxide 23 mmol/L (22-29); Chloride 100 mmol/L (96-108); Cholesterol 192 mg/dL; Estimated Glomerular Filt Rate > 60; Glucose Fasting 90 mg/dL (60-99); HDL Cholesterol 66 mg/dL; LDL Cholesterol Calculated 106 mg/dl; Sodium 138 mmol/L (135-145); Total Protein 6.6 g/dL (6.5-8.0); Triglycerides 102 mg/dL
== END 2022-07-10 08:17 | disposition home or self-care (01) ==
LOC: HO.10HDL 08:16
PROVIDERS: Visit Provider Nurse Practitioner Family
DX: I10 Essential (primary) hypertension (principal)
CPT/HCPCS: 36415; 80053; 80061; 81003; 84443; 85025

== ENCOUNTER 2022-07-24 12:17 | Outpatient (REF) | payer MEDICARE, SELFPAY | END 2022-07-24 12:18 | disposition home or self-care (01) | LOC: HO.10HDL 12:17 | PROVIDERS: Visit Provider Nurse Practitioner Family | DX: Z20.818 Contact with and (suspected) exposure to other bacterial communicable diseases (principal) | CPT/HCPCS: 87040 ==

== ENCOUNTER 2022-08-01 09:25 | Outpatient (REF) | payer MEDICARE, SELFPAY ==
--- NOTE | ~2022-08-01 | US_ITS ---
EXAMINATION: US VENOUS ULTRASOUND WITH DOPPLER LOWER EXTREMITY, LEFT CLINICAL INFORMATION: Pain and swelling COMPARISON: None TECHNIQUE: Ultrasound of the deep veins is performed from the hip to the calf with compression sonography and color and pulse Doppler assessment. Spectral analysis with color-flow imaging is performed. FINDINGS: There is normal venous compression and respiratory variation and augmented flow. The visualized common femoral vein, superficial femoral vein, profunda femoral vein, popliteal vein, and the trifurcation region shows no evidence of deep venous thrombosis. There is no significant popliteal fossa cyst. In the posterior left calf, some edematous tissue is seen without discrete fluid collections. If the patient's symptoms persist, followup ultrasound in 5 days 7 days might be of value to exclude proximal propagation from a non-visualized calf vein. US/US venous duplex LE IMPRESSION: No DVT demonstrated in the left lower extremity.
== END 2022-08-01 09:26 | disposition home or self-care (01) ==
LOC: HO.US 09:25
PROVIDERS: Visit Provider Nurse Practitioner Family
DX: L98.9 Disorder of the skin and subcutaneous tissue, unspecified (principal); M79.605 Pain in left leg; M79.89 Other specified soft tissue disorders
CPT/HCPCS: 93971

== ENCOUNTER 2022-09-15 07:36 | Outpatient (REF) | payer MEDICARE, SELFPAY ==
--- NOTE | ~2022-09-15 | MM_ITS ---
EXAMINATION: MM SCREENING DIGITAL BREAST TOMOSYNTHESIS, BILATERAL CLINICAL INFORMATION: Screening. Asymptomatic. The lifetime risk of breast cancer based on the Tyrer-Cuzick Model is 3%. COMPARISON: Mammography: 09/06/2021, 08/28/2020, 12/07/2019, 06/01/2019, 05/25/2019 TECHNIQUE: Digital breast tomosynthesis is performed in both the craniocaudal and mediolateral oblique views along with computer-aided detection (CAD). Synthesized 2D images are generated from the tomosynthesis. FINDINGS: There are scattered areas of fibroglandular density (ACR BI-RADS breast composition Category b). There are no significant masses, abnormal calcifications, or other abnormalities. Parenchymal pattern is similar to prior studies. There is no developing density or architectural abnormality. The axilla and skin contours are unremarkable. No significant changes. MM/MM tomosynthesis screening BI IMPRESSION: No mammographic evidence of malignancy. ASSESSMENT: BI-RADS 2: Benign RECOMMENDATION: Routine annual mammography screening. This patient's information was entered into a reminder system with a target due date for their next mammogram.
== END 2022-09-15 07:37 | disposition home or self-care (01) ==
LOC: HO.MAMMO 07:36
PROVIDERS: PCP Nurse Practitioner Family; Visit Provider Nurse Practitioner Family
DX: Z12.31 Encounter for screening mammogram for malignant neoplasm of breast (principal)
CPT/HCPCS: 77063; 77067

== ENCOUNTER 2022-10-28 08:08 | Outpatient (REF) | payer MEDICARE, SELFPAY ==
[2022-10-28 10:43] LABS: MANUAL DIFF FLAG NO
[2022-10-28 10:48] LABS: Basophils Percent Auto 0.5 % (0-2); Eosinophils Absolute Auto 0.2 X10*3/uL (0.0-0.4); Eosinophils Percent Auto 1.8 % (0-4); Hematocrit 38.4 % (37.0-47.0); Hemoglobin 13.1 g/dl (12.0-16.0); Imm Gran Abs Auto 0.02 X10*3/uL (0.00-0.03); Imm Gran Pct Auto 0.2 % (0.0-0.4); Lymphocytes Absolute Auto 3.8 X10*3/uL (1.2-4.9); Lymphocytes Percent Auto 44.3 % (20-40); Mean Corpuscular HGB Conc 34.1 g/dl (31.0-35.0); Mean Corpuscular Hemoglobin 29.2 pg (27.0-33.0); Mean Corpuscular Volume 85.5 fL (80.0-98.0); Mean Platelet Volume 10.5 fL (9.4-12.3); Monocytes Absolute Auto 0.6 X10*3/uL (0.1-1.2); Neutrophils Percent Auto 46.2 % (45-73); Platelet Count 458 X10*3/uL (160-400); Red Blood Count 4.49 X10*6/uL (4.20-5.50); Red Cell Distribution Width 14.9 % (11.0-16.0); White Blood Count 8.5 X10*3/uL (4.8-10.8)
[2022-10-28 10:57] LABS: Appearance Urine Clear; Color Urine Dark Yellow; Glucose Urine UA Negative (Negative); Leukocyte Esterase Urine Trace (Negative); Nitrite Urine Negative (Negative); Specific Gravity - Urine 1.025 (1.005-1.025); UMIC TRIGGER UACC YES; Urine Blood Negative (Negative); Urine Ketones Trace mg/dL (Negative); Urine Protein 30 (1+) mg/dL (Neg-Trace)
[2022-10-28 11:00] LABS: Bacteria Urine None Seen (None Seen); Hyaline Casts Urine 0-2 /LPF (0-2); RBC Urine 0-2 /HPF (0-2); WBC Urine 0-5 /HPF (0-5)
[2022-10-28 11:20] LABS: TSH reflex Free T4 1.86 uIU/mL (0.32-4.0)
[2022-10-28 11:27] LABS: Alanine Aminotransferase 15 U/L (0-31); Albumin Level 4.1 g/dL (3.5-5.0); Alkaline Phosphatase 76 U/L (39-117); Anion Gap 20 (12-20); Aspartate Amino Transferase 14 U/L (5-31); Bilirubin Total 0.8 mg/dL (0.0-1.0); Blood Urea Nitrogen 12 mg/dL (9-16); Calcium 9.8 mg/dL (8.4-10.2); Carbon Dioxide 23 mmol/L (22-29); Chloride 100 mmol/L (96-108); Cholesterol 203 mg/dL; Estimated Glomerular Filt Rate > 60; Glucose Fasting 100 mg/dL (60-99); HDL Cholesterol 64 mg/dL; LDL Cholesterol Calculated 119 mg/dl; Potassium 3.7 mmol/L (3.3-5.1); Sodium 139 mmol/L (135-145); Total Protein 6.7 g/dL (6.5-8.0); Triglycerides 102 mg/dL
== END 2022-10-28 08:09 | disposition home or self-care (01) ==
LOC: HO.10HDL 08:08
PROVIDERS: Visit Provider Nurse Practitioner Family
DX: I10 Essential (primary) hypertension (principal)
CPT/HCPCS: 36415; 80053; 80061; 81001; 84443; 85025

== ENCOUNTER 2022-12-17 11:31 | Outpatient (REF) | payer MEDICARE, SELFPAY ==
--- NOTE | ~2022-12-17 | XR_ITS ---
EXAMINATION: CHEST AND LEFT RIBS CLINICAL INFORMATION: Chest pain COMPARISON: Chest radiograph 02/28/2019 TECHNIQUE: Single view chest with 2 additional views left RIBS FINDINGS: No significant abnormalities seen involving the heart, lungs, mediastinum or bony thorax. The visualized left ribs appear unremarkable. No rib fractures are seen. XR/XR chest 2V IMPRESSION: No acute intrathoracic disease.
--- NOTE | ~2022-12-17 | XR_ITS ---
EXAMINATION: CHEST AND LEFT RIBS CLINICAL INFORMATION: Chest pain COMPARISON: Chest radiograph 02/28/2019 TECHNIQUE: Single view chest with 2 additional views left RIBS FINDINGS: No significant abnormalities seen involving the heart, lungs, mediastinum or bony thorax. The visualized left ribs appear unremarkable. No rib fractures are seen. XR/XR ribs LT 2V IMPRESSION: No acute intrathoracic disease.
== END 2022-12-17 11:32 | disposition home or self-care (01) ==
LOC: HO.HMGCX 11:31
PROVIDERS: PCP Nurse Practitioner Family; Visit Provider Internal Medicine
DX: R07.9 Chest pain, unspecified (principal)
CPT/HCPCS: 71046; 71100

== ENCOUNTER 2023-04-21 07:35 | Outpatient (REF) | payer MEDICARE, SELFPAY ==
[2023-04-21 10:40] LABS: MANUAL DIFF FLAG NO
[2023-04-21 10:50] LABS: Basophils Percent Auto 0.3 % (0-2); Eosinophils Absolute Auto 0.2 X10*3/uL (0.0-0.4); Eosinophils Percent Auto 2.8 % (0-4); Hematocrit 39.5 % (37.0-47.0); Hemoglobin 13.1 g/dl (12.0-16.0); Imm Gran Abs Auto 0.01 X10*3/uL (0.00-0.03); Imm Gran Pct Auto 0.1 % (0.0-0.4); Lymphocytes Absolute Auto 3.6 X10*3/uL (1.2-4.9); Lymphocytes Percent Auto 46.1 % (20-40); Mean Corpuscular HGB Conc 33.2 g/dl (31.0-35.0); Mean Corpuscular Hemoglobin 28.2 pg (27.0-33.0); Mean Corpuscular Volume 85.1 fL (80.0-98.0); Mean Platelet Volume 10.3 fL (9.4-12.3); Monocytes Absolute Auto 0.5 X10*3/uL (0.1-1.2); Monocytes Percent Auto 6.8 % (2-11); Neutrophils Absolute Auto 3.4 x10*3/uL (2.0-8.3); Neutrophils Percent Auto 43.9 % (45-73); Platelet Count 506 X10*3/uL (160-400); Red Blood Count 4.64 X10*6/uL (4.20-5.50); Red Cell Distribution Width 14.6 % (11.0-16.0); White Blood Count 7.8 X10*3/uL (4.8-10.8)
[2023-04-21 10:57] LABS: Appearance Urine Clear; Color Urine Yellow; Glucose Urine UA Negative (Negative); Leukocyte Esterase Urine Negative (Negative); Nitrite Urine Negative (Negative); Specific Gravity - Urine 1.015 (1.005-1.025); Urine Blood Negative (Negative); Urine Ketones Negative (Negative); Urine Protein Negative (Neg-Trace)
[2023-04-21 11:04] LABS: Alanine Aminotransferase 14 U/L (0-31); Albumin Level 4.1 g/dL (3.5-5.0); Alkaline Phosphatase 77 U/L (39-117); Anion Gap 15 (12-20); Aspartate Amino Transferase 12 U/L (5-31); Bilirubin Total 1.1 mg/dL (0.0-1.0); Blood Urea Nitrogen 11 mg/dL (9-16); Calcium 9.9 mg/dL (8.4-10.2); Carbon Dioxide 30 mmol/L (22-29); Chloride 96 mmol/L (96-108); Cholesterol 180 mg/dL; Estimated Glomerular Filt Rate > 60; Glucose Fasting 108 mg/dL (60-99); HDL Cholesterol 70 mg/dL; LDL Cholesterol Calculated 94 mg/dl; Potassium 3.5 mmol/L (3.3-5.1); Sodium 137 mmol/L (135-145); Total Protein 6.5 g/dL (6.5-8.0); Triglycerides 82 mg/dL
[2023-04-21 11:22] LABS: TSH reflex Free T4 1.61 uIU/mL (0.32-4.0); Vitamin D 25-OH Total 57.5 ng/mL (>30)
== END 2023-04-21 07:36 | disposition home or self-care (01) ==
LOC: HO.10HDL 07:35
PROVIDERS: Visit Provider Nurse Practitioner Family
DX: Z00.00 Encounter for general adult medical examination without abnormal findings (principal); Z20.2 Contact with and (suspected) exposure to infections with a predominantly sexual mode of transmission; Z78.0 Asymptomatic menopausal state; E78.5 Hyperlipidemia, unspecified; E55.9 Vitamin D deficiency, unspecified; I10 Essential (primary) hypertension
CPT/HCPCS: 36415; 80053; 80061; 81003; 82306; 84443; 85025

== ENCOUNTER 2023-09-17 07:45 | Outpatient (REF) | payer MEDICARE, SELFPAY ==
--- NOTE | ~2023-09-17 | MM_ITS ---
EXAMINATION: MM SCREENING DIGITAL BREAST TOMOSYNTHESIS, BILATERAL CLINICAL INFORMATION: Screening. Asymptomatic. COMPARISON: Mammography: 09/15/2022, 09/06/2021, 08/28/2020, 12/07/2019, 06/01/2019, 05/25/2019 (BI-RADS 0), 04/19/2018 TECHNIQUE: Digital breast tomosynthesis is performed in both the craniocaudal and mediolateral oblique views along with computer-aided detection (CAD). Synthesized 2D images are generated from the tomosynthesis. FINDINGS: There are scattered areas of fibroglandular density (ACR BI-RADS breast composition Category b). Stable benign type calcifications upper outer right breast. There are a few scattered benign type calcifications left breast, and benign vascular calcifications in both breasts. There is a skin lesion lower outer left breast. There are no suspicious masses, suspicious grouped calcifications, or areas of architectural distortion in either breast. The parenchymal pattern is stable from prior exams. MM/MM tomosynthesis screening BI IMPRESSION: No mammographic evidence of malignancy. Stable benign findings ASSESSMENT: BI-RADS BI-RADS 2 - Benign Findings RECOMMENDATION: Routine annual mammography screening. 1 year F/U This examination should not preclude the clinical evaluation of a suspicious palpable abnormality. This patient's information was entered into a reminder system with a target due date for their next mammogram.
== END 2023-09-17 07:46 | disposition home or self-care (01) ==
LOC: HO.MAMMO 07:45
PROVIDERS: PCP Nurse Practitioner Family; Visit Provider Nurse Practitioner Family
DX: Z12.31 Encounter for screening mammogram for malignant neoplasm of breast (principal)
CPT/HCPCS: 77063; 77067

== ENCOUNTER → 2023-09-17 07:45 | Outpatient (BNV) | payer MEDICARE, SELFPAY | PROVIDERS: PCP Nurse Practitioner Family; Visit Provider Radiology Diagnostic Radiology | DX: Z12.31 Encounter for screening mammogram for malignant neoplasm of breast (principal) | CPT/HCPCS: 77063; 77067 ==

== ENCOUNTER 2024-01-26 08:26 | Outpatient (REF) | payer MEDICARE, SELFPAY ==
[2024-01-26 10:25] LABS: MANUAL DIFF FLAG NO
[2024-01-26 10:35] LABS: Basophils Percent Auto 0.1 % (0-2); Eosinophils Percent Auto 0.4 % (0-4); Hematocrit 39.7 % (37.0-47.0); Hemoglobin 13.6 g/dl (12.0-16.0); Imm Gran Abs Auto 0.04 X10*3/uL (0.00-0.03); Imm Gran Pct Auto 0.4 % (0.0-0.4); Lymphocytes Absolute Auto 3.9 X10*3/uL (1.2-4.9); Lymphocytes Percent Auto 38.1 % (20-40); Mean Corpuscular HGB Conc 34.3 g/dl (31.0-35.0); Mean Corpuscular Hemoglobin 29.1 pg (27.0-33.0); Mean Corpuscular Volume 84.8 fL (80.0-98.0); Mean Platelet Volume 9.7 fL (9.4-12.3); Monocytes Absolute Auto 0.7 X10*3/uL (0.1-1.2); Monocytes Percent Auto 6.7 % (2-11); Neutrophils Absolute Auto 5.6 x10*3/uL (2.0-8.3); Neutrophils Percent Auto 54.3 % (45-73); Platelet Count 508 X10*3/uL (160-400); Red Blood Count 4.68 X10*6/uL (4.20-5.50); Red Cell Distribution Width 14.2 % (11.0-16.0); White Blood Count 10.3 X10*3/uL (4.8-10.8)
[2024-01-26 11:03] LABS: Appearance Urine Clear; Color Urine Dark Yellow; Glucose Urine UA Negative (Negative); Leukocyte Esterase Urine Negative (Negative); Nitrite Urine Negative (Negative); PH 7.5 (5.0-9.0); Urine Blood Negative (Negative); Urine Ketones Negative (Negative); Urine Protein Negative (Neg-Trace)
[2024-01-26 11:14] LABS: Alanine Aminotransferase 14 U/L (0-31); Albumin Level 4.1 g/dL (3.5-5.0); Alkaline Phosphatase 66 U/L (39-117); Anion Gap 11 (12-20); Aspartate Amino Transferase 10 U/L (5-31); Bilirubin Total 0.7 mg/dL (0.0-1.0); Blood Urea Nitrogen 14 mg/dL (9-16); Calcium 9.8 mg/dL (8.4-10.2); Carbon Dioxide 33 mmol/L (22-29); Chloride 98 mmol/L (96-108); Cholesterol 186 mg/dL (<200); Estimated Glomerular Filt Rate > 60; Glucose Fasting 127 mg/dL (60-99); HDL Cholesterol 74 mg/dL (>40); LDL Cholesterol Calculated 95 mg/dL (<100); Potassium 3.3 mmol/L (3.3-5.1); Sodium 139 mmol/L (135-145); Total Protein 6.6 g/dL (6.5-8.0); Triglycerides 87 mg/dL (<150)
[2024-01-26 11:18] LABS: TSH reflex Free T4 1.09 uIU/mL (0.32-4.0); Vitamin D 25-OH Total 64.2 ng/mL (>30)
[2024-01-27 16:01] LABS: Alanine Aminotransferase 13 U/L (0-31); Albumin Level 4.1 g/dL (3.5-5.0); Alkaline Phosphatase 67 U/L (39-117); Aspartate Amino Transferase 10 U/L (5-31); Bilirubin Direct 0.2 mg/dL (0.0-0.5); Bilirubin Total 0.7 mg/dL (0.0-1.0); Total Protein 6.7 g/dL (6.5-8.0)
== END 2024-01-26 08:27 | disposition home or self-care (01) ==
LOC: HO.10HDL 08:26
PROVIDERS: Referring Provider Physician Assistant Medical; Visit Provider Nurse Practitioner Family
DX: Z00.00 Encounter for general adult medical examination without abnormal findings (principal); E55.9 Vitamin D deficiency, unspecified; M81.0 Age-related osteoporosis without current pathological fracture; B35.4 Tinea corporis; L30.9 Dermatitis, unspecified; L98.8 Other specified disorders of the skin and subcutaneous tissue; L53.8 Other specified erythematous conditions; L29.8 Other pruritus; L26 Exfoliative dermatitis; B35.1 Tinea unguium; B35.3 Tinea pedis; Z78.0 Asymptomatic menopausal state
CPT/HCPCS: 36415; 80053; 80061; 80076; 81003; 82248; 82306; 84443; 85025

== ENCOUNTER 2024-02-08 10:19 | Outpatient (AMB) | payer MEDICARE, SELFPAY ==
[2024-02-08 10:21] VITALS: BP 136/80; PULSE 74; O2SAT 98; BMI 30.8
--- NOTE | 2024-02-08 10:21 | A.OFFPC_ITS ---
Vital Signs 02/08/24 10:21 Height 5 ft 1 in Weight 163 lb BMI 30.8 BP 136/80 Blood Pressure Location Lt brachial Position Sitting Pulse 74 Pulse Source Pulse Oximeter Pulse Oximetry (%) 98 Oxygen Delivery Method Room Air Intake Visit Reasons: PE Intake Note: Pt is here for physical exam [employer] Cutter Required: No Accompanied by: Self / Same As Patient Allergies Influenza Virus Vaccines Allergy (Severe, Verified 02/08/24 11:09) arm swelling naproxen [From NAPROSYN] Allergy (Severe, Verified 02/08/24 11:09) GI PAIN oxycodone [OXYCODONE] Allergy (Severe, Verified 02/08/24 11:09) VOMITING sulfamethoxazole [From BACTRIM] Allergy (Severe, Verified 02/08/24 11:09) FACIAL SWELLING trimethoprim [From BACTRIM] Allergy (Severe, Verified 02/08/24 11:09) FACIAL SWELLING lisinopril [LISINOPRIL] Allergy (Intermediate, Verified 02/08/24 11:09) COUGH Medication List - Last Reconciled 02/08/24 by KENIA Leone- amlodipine 5 mg PO DAILY amoxicillin 2,000 mg (4 x 500 mg) PO DAILY atenolol 25 mg PO DAILY 90 days atorvastatin 40 mg PO DAILY cetirizine (Zyrtec) 20 mg PO BID cholecalciferol (vitamin D3) 50 mcg PO DAILY 90 days diclofenac sodium 1% (Arthritis Pain (diclofenac)) 4 grams topical QID PRN 90 days ezetimibe 10 mg PO DAILY 90 days fenofibrate 54 mg PO DAILY hydrochlorothiazide 25 mg PO DAILY levothyroxine 50 mcg PO QAM linaclotide (Linzess) 72 mcg PO DAILY 90 days omeprazole 40 mg PO DAILY potassium chloride ER 10 mEq PO QPM terbinafine HCl 250 mg PO DAILY Tobacco use date assessed: 02/08/24 Fall risk assessment: 2 + Falls in past year Last assessed Fall Risk: 02/08/24 Dental Screening Dental Screen Date: 02/08/24 Did you have a dental visit in the last 12 months?: Yes Did you have a dental problem in the last 6 months where you did not have access to dental care?: No Was dental information given to patient?: Patient has dentist HPI PE HPI Details Pt is here for a PE. Labs were already performed. Colon screen is up to date. Mammo is up to date. Pt reports falling on 02/03 after tripping over a rug at [facility]. Pt lacerated her left knee and had this sutured (XR was neg for acute FX). She reports ongoing right knee pain. Will order XR. Pt denied hitting her head or any LOC. [facility] Medical History Arthritis Elevated platelet count GERD (gastroesophageal reflux disease) Allergic rhinitis Elevated cholesterol Vitamin D deficiency Hypothyroid Osteoporosis HTN (hypertension) Surgical History S/P right cataract extraction History of excision of pilonidal cyst Hx of arthroscopic knee surgery H/O colonoscopy History of left knee replacement History of shoulder surgery History of section Family History Father Emphysema, unspecified Mother No problems noted. Paternal Aunt Pancreatic cancer Maternal Grandmother Pancreatic cancer Paternal Aunt Stroke Paternal Uncle Stroke Heart disease Social History Household Members: Spouse Housing: House Are you a primary primary care md to a significant other at home: No Do you presently have visiting nurse or other home services: No Alcohol intake: current Alcohol intake frequency: holidays/special occasions only Alcohol type: wine Comment: Tylenol given Patient Tobacco Use Status: Former Tobacco user Quit Date: 1998 Tobacco use type: Cigarette Cigarette Packs Per Day: 1 e-Cigarette/Vaping Use: Never Used Second Hand Smoke Exposure: No Current occupational status: retired Cognitive needs: No Hearing needs: No Vision needs: No Questionnaire PHQ-9 Over the last 2 weeks, how often have you been bothered by any of the following problems? 1. Little interest or pleasure in doing things: not at all 2. Feeling down, depressed, or hopeless: not at all 3. Trouble falling or staying asleep, or sleeping too much: not at all 4. Feeling tired or having little energy: not at all 5. Poor appetite or overeating: not at all 6. Feeling bad about yourself - or that you are a failure or have let yourself or your family down: not at all 7. Trouble concentrating on things, such as reading the newspaper or watching television: not at all 8. Moving or speaking so slowly that other people could have noticed. Or the opposite - being so fidgety or restless that you have been moving around a lot more than usual: not at all 9. Thoughts that you would be better off or of hurting yourself in some way: not at all Total score: 0 Depression Screening Interpretation: Negative Depression Screening Done: Yes 67730 - PHQ-9 Billing: Yes Source: Developed by Drs. Rogelio Oh, Dayanna Redmond, Tommy Fregoso and colleagues, with an educational shay from [employer]. Thrive Questionnaire Date Thrive assessed: 02/08/24 I am a: Patient What is your living situation today?: I have a steady place to live Within the past 12 months, did the food you bought not last and you didn't have the money to get more?: Never true Within the past 12 months, did you worry whether your food would run out before you got money to buy more?: Never true Do you have trouble paying for medicines?: No Do you have trouble getting transportation to medical appointments?: No Do you have trouble paying your heating and electricity bill?: No Do you have trouble taking care of your child, family member or friend?: No Do you have trouble with day-to-day activities such as bathing, preparing meals, shopping, managing finances, etc.?: No Are you currently unemployed and looking for a job?: No Are you interested in more education?: No Please select the resources that you would like help with: None Currently or been in a relationship where the following occur: no concerns reported THRIVE Score: 0 AUDIT C Alcohol Use Questionnaire (AUDIT-C) 1. How often do you have a drink containing alcohol?: Monthly or less 2. How many drinks containing alcohol do you have on a typical day when you are drinking?: 1 or 2 3. How often do you have six or more drinks on one occasion?: Never Total Score: 1 ONIEL-7 AMB Questionnaire ONIEL-7 Date ONIEL - 7 assessed: 02/08/24 Feeling nervous, anxious, or on edge: 0 = Not at all Not being able to stop or control worryin = Not at all Worrying too much about different things: 0 = Not at all Trouble relaxin = Not at all Being so restless that it is hard to sit still: 0 = Not at all Becoming easily annoyed or irritable: 0 = Not at all Feeling afraid as if something awful might happen: 0 = Not at all Total ONIEL-7 score (0-4 normal; 5-9 mild; 10-14 moderate; 15-21 severe): 0 Source: Developed by Drs. Rogelio Oh, Dayanna Redmond, Tommy Fregoso and colleagues, with an educational shay from [employer]. ONIEL-7 Assessment Billing ONIEL-7 Assessment Tool: ONIEL-7 Assessment 77279 Review of Systems Const Denies chills and Denies fever(s) Eyes Denies blurry vision ENT Denies vertigo, Denies dizziness and Denies sore throat Card Denies chest pain at rest, Denies chest pain with activity, Denies diaphoresis, Denies dyspnea and Denies dyspnea on exertion Resp Denies cough, Denies dyspnea, Denies dyspnea on exertion and Denies wheezing GI Denies abdominal pain, Denies melena, Denies hematochezia, Denies constipation, Denies diarrhea and Denies loose stools Denies hematuria Musc Denies numbness and Denies tingling Skin/Breast Denies lesions Neuro Denies vertigo, Denies dizziness, Denies numbness and Denies tingling Psych Denies anxiety, Denies depression, Denies homicidal ideation, Denies suicidal ideation and Denies other (substance abuse) Aller/Immun Denies wheezing Physical exam (Primary Care) Vital Signs: Last Vital Signs Pulse 74 02/08/24 10:21 BP 136/80 02/08/24 10:21 Pulse Ox 98 02/08/24 10:21 Oxygen Delivery Method Room Air 02/08/24 10:21 BMI result Body Mass Index 30.8 Tobacco/Smoking Status: Tobacco use Status Tobacco use date assessed 02/08/24 02/08/24 10:22 Patient Tobacco Use Status Former Tobacco user 02/08/24 10:22 Tobacco use type Cigarette 02/08/24 10:22 e-Cigarette/Vaping Use Never Used 02/08/24 10:22 PHQ-9: PHQ-9 Score PHQ-9: Total score 0 02/08/24 10:38 Depression Screening Interpretation: Negative Thrive Assessment: Date of Thrive Assessment Date Thrive assessed 02/08/24 02/08/24 10:29 Currently or been in a relationship where the following occur: no concerns reported Const General: cooperative Nutritional Appearance: well nourished Orientation/consciousness: patient oriented x3 HENMT Head: Yes normal to inspection, Yes normocephalic and Yes atraumatic Ears: TM's normal bilaterally Eyes General: appearance normal, both eyes and all related structures Alignment and Position: alignment normal and position normal Neck Neck: Yes normal visual inspection and Yes no lymphadenopathy Thyroid: Thyroid normal Resp Effort & Inspection: normal respiratory effort Auscultation: clear to auscultation bilaterally Cardio Rate: regular rate Rhythm: regular rhythm Heart sounds: S1 normal heart sound present, S2 normal heart sound present and no murmurs GI Palpation (GI): Soft to palpation and nontender Auscultation: normal bowel sounds Skin Rashes: no rashes Neuro General: patient oriented x3, moves all extremities, no focal motor deficits and deep tendon reflexes 2+ bilaterally Romberg Test: Negative Extrem Other: sutured left knee, sutures intact with no signs of infection, well-approximated, ecchymosis surrounding and to anterior earl, right knee with small superficial abrasion. able to extend and flex RLE Psych Appearance: grossly normal Mental Status: mental status grossly normal Speech and movement: Normal speech and movement present Affect: normal affect Attitude: cooperative Thought process: Normal thought process present Thought content: Normal thought content present Insight: Good insight present (Psych) Judgement: Good judgement present (Psych) Assessment and Plan Assessment & Plan (1) Fall: Code(s): W19.XXXA - Unspecified fall, initial encounter Plan: XR ordered (2) Right knee pain: Code(s): M25.561 - Pain in right knee Plan: XR ordered (3) Physical exam: Code(s): Z00.00 - Encounter for general adult medical examination without abnormal findings Plan: Labs already performed (4) Elevated fasting blood sugar: Code(s): R73.01 - Impaired fasting glucose Plan: most likely related to steroid injection (5) Osteoporosis: Code(s): M81.0 - Age-related osteoporosis without current pathological fracture Qualifiers: Osteoporosis type: age-related Presence of current pathological fracture: without current pathological fracture Qualified Code(s): M81.0 - Age- related osteoporosis without current pathological fracture Plan The patient agreed to the use of a medical care administrator for this encounter. Scribed for SHABBIR Siu by Stormy Hyman medical care administrator, on 02/08/2024 at 10:30 EST. Orders: Orders XR DEXA axial skeleton Today M81.0 - Age-related osteoporosis without current pathological fracture Coding Level of Care Code Est Pt Prev Care >65y(25353) Diagnoses Fall W19.XXXA Right knee pain M25.561 Physical exam Z00.00 Elevated fasting blood sugar R73.01 Age-related osteoporosis without current pathological fracture M81.0 Osteoporosis type: age-related Presence of current pathological fracture: without current pathological fracture Additional Codes ONIEL-7 Assessment Billing - ONIEL-7 Assessment Tool: ONIEL-7 Assessment [id number] ([id number])
== END 2024-02-08 10:56 | disposition home or self-care (01) ==
PROVIDERS: Visit Provider Nurse Practitioner Family
DX: W19.XXXA Unspecified fall, initial encounter (principal); M25.561 Pain in right knee; Z00.00 Encounter for general adult medical examination without abnormal findings; R73.01 Impaired fasting glucose; M81.0 Age-related osteoporosis without current pathological fracture
CPT/HCPCS: 99397

== ENCOUNTER 2024-02-08 10:56 | Outpatient (REF) | payer MEDICARE, SELFPAY ==
--- NOTE | ~2024-02-08 | XR_ITS ---
EXAMINATION: XR KNEE, RIGHT CLINICAL INFORMATION: Right knee pain after fall. COMPARISON: None available. TECHNIQUE: Four views of the right knee. FINDINGS: Alignment is anatomic. Joint spaces are maintained. No displaced fracture. Quadriceps tendon enthesophyte. No significant joint effusion. XR/XR knee RT 4V IMPRESSION: No acute abnormality.
== END 2024-02-08 10:57 | disposition home or self-care (01) ==
LOC: HO.HMGCX 10:56
PROVIDERS: PCP Nurse Practitioner Family; Visit Provider Nurse Practitioner Family
DX: M25.561 Pain in right knee (principal); Z91.81 History of falling
CPT/HCPCS: 73564

== ENCOUNTER 2024-02-26 09:51 | Outpatient (REF) | payer MEDICARE, SELFPAY ==
--- NOTE | ~2024-02-26 | MM_ITS ---
EXAMINATION: BONE DENSITOMETRY CLINICAL INDICATION: Age-related osteoporosis without current pathological fracture. COMPARISON: Previous BD dated 01/31/2022 and baseline BD dated 04/01/2007. TECHNIQUE: Using a [employer] DXA System (software version: 13.1) manufactured by [employer], dual-energy x-ray absorptiometry was performed of the lumbar spine and left hip. The images are of good technical quality. Summary results are attached. FINDINGS: LEFT FEMUR, NECK: Current: BMD 0.680 g/cm2, Z-score -1.1, T-score -2.6, osteoporosis. Prior: BMD 0.651 g/cm2. Baseline: BMD 0.980 g/cm2. LEFT FEMUR, TOTAL: Current: BMD 0.798 g/cm2, Z-score -0.4, T-score -1.7, osteopenia, 2.4% increase from previous, 26.9% decrease from baseline (<5% change is not significant). Prior: BMD 0.779 g/cm2. Baseline: BMD 1.092 g/cm2. AP SPINE L1-L4: Current: BMD 0.936 g/cm2, Z-score -0.6, T-score -2.0, osteopenia, 2.1% decrease from previous, 17.2% decrease from baseline (<5% change is not significant). Prior: BMD 0.956 g/cm2. Baseline: BMD 1.130 g/cm2. IDENTIFIED RISK FACTORS: Early menopause, osteoporosis, thiazide, family history (parent hip fracture), secondary osteoporosis. HISTORY OF FRACTURE: None listed. MEDICATIONS: Vitamin D. MM/XR DEXA axial skeleton IMPRESSION: 1. DIAGNOSIS: Osteoporosis based on the lowest T-score value of -2.6 in the femoral neck applying World Health Organization criteria. 2. 10-YEAR FRACTURE RISK PREDICTION, FRAX: According to the guidelines, FRAX calculation should only be performed on patients in the osteopenia bone density category. Therefore, FRAX was not performed on this patient. 3. Treatment Recommendations: NOF guidelines recommend consideration for treatment in postmenopausal women and men age 50 and older presenting with the following: -A hip or vertebral (clinical or morphometric) fracture. -T-score less than or equal to -2.5 at the femoral neck or spine after appropriate evaluation to exclude secondary causes. -Low bone mass at the hip or spine and a 10-year fracture probability by FRAX of greater than or equal to 3% for hip fracture or greater than or equal to 20% for major osteoporotic fracture based on the [place] adapted WHO algorithm. 4. Other Recommendations: All treatment decisions require clinical judgment and consideration of individual patient factors, including patient preferences, comorbidities, previous drug use, risk factors not captured in the FRAX model (e.g. frailty, falls, vitamin D deficiency, increased bone turnover, interval significant decline in bone density) and possible under or overestimation of fracture risk by FRAX. Additional medical evaluation for secondary cause of low bone mineral density may be appropriate. FUTURE SCAN RECOMMENDATION: People with diagnosed cases of osteoporosis or at high risk for fracture should have regular bone mineral density tests. For patients eligible for Medicare, routine testing is allowed once every 2 years. The testing frequency can be increased to one year for patients who have rapidly progressing disease, those who are receiving or discontinuing medical therapy to restore bone mass, or have additional risk factors.
== END 2024-02-26 09:52 | disposition home or self-care (01) ==
LOC: HO.MAMMO 09:51
PROVIDERS: PCP Nurse Practitioner Family; Visit Provider Nurse Practitioner Family
DX: Z13.820 Encounter for screening for osteoporosis (principal); Z78.0 Asymptomatic menopausal state; M81.0 Age-related osteoporosis without current pathological fracture
CPT/HCPCS: 77080

== ENCOUNTER 2024-02-26 10:47 | Outpatient (REF) | payer MEDICARE, SELFPAY ==
[2024-02-26 13:37] LABS: MANUAL DIFF FLAG NO
[2024-02-26 13:42] LABS: Basophils Absolute Auto 0.1 X10*3/uL (0.0-0.2); Basophils Percent Auto 0.6 % (0-2); Eosinophils Absolute Auto 0.1 X10*3/uL (0.0-0.4); Hematocrit 38.8 % (37.0-47.0); Hemoglobin 13.2 g/dl (12.0-16.0); Imm Gran Abs Auto 0.03 X10*3/uL (0.00-0.03); Imm Gran Pct Auto 0.3 % (0.0-0.4); Lymphocytes Percent Auto 46.9 % (20-40); Mean Corpuscular Hemoglobin 29.3 pg (27.0-33.0); Mean Corpuscular Volume 86.2 fL (80.0-98.0); Monocytes Absolute Auto 0.7 X10*3/uL (0.1-1.2); Monocytes Percent Auto 8.1 % (2-11); Neutrophils Absolute Auto 3.7 x10*3/uL (2.0-8.3); Neutrophils Percent Auto 43.1 % (45-73); Platelet Count 427 X10*3/uL (160-400); White Blood Count 8.6 X10*3/uL (4.8-10.8)
[2024-02-26 14:30] LABS: Alanine Aminotransferase 18 U/L (0-31); Albumin Level 4.1 g/dL (3.5-5.0); Alkaline Phosphatase 68 U/L (39-117); Aspartate Amino Transferase 13 U/L (5-31); Bilirubin Direct 0.2 mg/dL (0.0-0.5); Bilirubin Total 0.6 mg/dL (0.0-1.0); Total Protein 6.8 g/dL (6.5-8.0)
== END 2024-02-26 10:48 | disposition home or self-care (01) ==
LOC: HO.10HDL 10:47
PROVIDERS: Visit Provider Physician Assistant Medical
DX: B35.4 Tinea corporis (principal); B35.3 Tinea pedis; L30.9 Dermatitis, unspecified; B35.1 Tinea unguium; L98.8 Other specified disorders of the skin and subcutaneous tissue; L53.8 Other specified erythematous conditions; L29.8 Other pruritus; L26 Exfoliative dermatitis
CPT/HCPCS: 36415; 80076; 85025

== ENCOUNTER 2024-03-28 09:43 | Outpatient (REF) | payer MEDICARE, SELFPAY ==
[2024-03-28 10:42] LABS: MANUAL DIFF FLAG NO
[2024-03-28 10:56] LABS: Basophils Percent Auto 0.5 % (0-2); Eosinophils Absolute Auto 0.1 X10*3/uL (0.0-0.4); Eosinophils Percent Auto 1.9 % (0-4); Hematocrit 37.8 % (37.0-47.0); Hemoglobin 12.9 g/dl (12.0-16.0); Imm Gran Abs Auto 0.03 X10*3/uL (0.00-0.03); Imm Gran Pct Auto 0.4 % (0.0-0.4); Lymphocytes Absolute Auto 3.5 X10*3/uL (1.2-4.9); Lymphocytes Percent Auto 46.6 % (20-40); Mean Corpuscular HGB Conc 34.1 g/dl (31.0-35.0); Mean Corpuscular Hemoglobin 29.5 pg (27.0-33.0); Mean Corpuscular Volume 86.3 fL (80.0-98.0); Mean Platelet Volume 10.4 fL (9.4-12.3); Monocytes Absolute Auto 0.7 X10*3/uL (0.1-1.2); Monocytes Percent Auto 8.6 % (2-11); Neutrophils Absolute Auto 3.2 x10*3/uL (2.0-8.3); Platelet Count 404 X10*3/uL (160-400); Red Blood Count 4.38 X10*6/uL (4.20-5.50); Red Cell Distribution Width 13.8 % (11.0-16.0); White Blood Count 7.5 X10*3/uL (4.8-10.8)
[2024-03-28 11:54] LABS: Alanine Aminotransferase 15 U/L (0-31); Albumin Level 3.8 g/dL (3.5-5.0); Alkaline Phosphatase 62 U/L (39-117); Aspartate Amino Transferase 12 U/L (5-31); Bilirubin Direct 0.2 mg/dL (0.0-0.5); Bilirubin Total 0.5 mg/dL (0.0-1.0); Total Protein 6.6 g/dL (6.5-8.0)
[2024-03-28 12:54] LABS: Alanine Aminotransferase 14 U/L (0-31); Albumin Level 3.9 g/dL (3.5-5.0); Alkaline Phosphatase 60 U/L (39-117); Anion Gap 15 (12-20); Aspartate Amino Transferase 12 U/L (5-31); Bilirubin Total 0.5 mg/dL (0.0-1.0); Blood Urea Nitrogen 12 mg/dL (9-16); Calcium 9.4 mg/dL (8.4-10.2); Carbon Dioxide 26 mmol/L (22-29); Chloride 101 mmol/L (96-108); Estimated Glomerular Filt Rate > 60; Glucose Random 104 mg/dL (60-115); Potassium 3.5 mmol/L (3.3-5.1); Sodium 138 mmol/L (135-145); Total Protein 6.5 g/dL (6.5-8.0)
== END 2024-03-28 09:44 | disposition home or self-care (01) ==
LOC: HO.10HDL 09:43
PROVIDERS: Nurse Practitioner Family; Visit Provider Physician Assistant Medical
DX: B35.1 Tinea unguium (principal); B35.4 Tinea corporis; B35.3 Tinea pedis; L30.9 Dermatitis, unspecified; L98.8 Other specified disorders of the skin and subcutaneous tissue; L53.8 Other specified erythematous conditions; L29.8 Other pruritus; L26 Exfoliative dermatitis
CPT/HCPCS: 36415; 80053; 80076; 82248; 85025

== ENCOUNTER 2024-08-25 08:25 | Outpatient (AMB) | payer MEDICARE, SELFPAY ==
--- NOTE | 2024-08-25 08:33 | MHC.PC.OV ---
Vital Signs 08/25/24 08:36 Height 5 ft 1 in Weight 152 lb 8 oz BMI 28.8 BP 130/70 Blood Pressure Location Lt brachial Position Sitting Pulse 73 Pulse Source Pulse Oximeter Pulse Oximetry (%) 97 Oxygen Delivery Method Room Air Intake Visit Reasons: 6 mon f/u Intake Note: Pt is here today for 6 month follow up Allergies Influenza Virus Vaccines Allergy (Severe, Verified 08/25/24 08:33) arm swelling naproxen [From NAPROSYN] Allergy (Severe, Verified 08/25/24 08:33) GI PAIN oxycodone [OXYCODONE] Allergy (Severe, Verified 08/25/24 08:33) VOMITING sulfamethoxazole [From BACTRIM] Allergy (Severe, Verified 08/25/24 08:33) FACIAL SWELLING trimethoprim [From BACTRIM] Allergy (Severe, Verified 08/25/24 08:33) FACIAL SWELLING lisinopril [LISINOPRIL] Allergy (Intermediate, Verified 08/25/24 08:33) COUGH Medication List - Last Reconciled 08/25/24 by KENAI Leone- amlodipine 5 mg PO DAILY atenolol 25 mg PO DAILY 90 days atorvastatin 40 mg PO DAILY cetirizine (Zyrtec) 20 mg PO BID cholecalciferol (vitamin D3) 50 mcg PO DAILY 90 days diclofenac sodium 1% (Arthritis Pain (diclofenac)) 4 grams topical QID PRN 90 days ezetimibe 10 mg PO DAILY 90 days fenofibrate 54 mg PO DAILY hydrochlorothiazide 25 mg PO DAILY levothyroxine 50 mcg PO QAM linaclotide (Linzess) 72 mcg PO DAILY 90 days omeprazole 40 mg PO DAILY potassium chloride ER 10 mEq PO QPM Tobacco use date assessed: 08/25/24 Fall risk assessment: 2 + Falls in past year Last assessed Fall Risk: 08/25/24 Dental Screening Dental Screen Date: 08/25/24 Did you have a dental visit in the last 12 months?: Yes Did you have a dental problem in the last 6 months where you did not have access to dental care?: Yes Was dental information given to patient?: Patient has dentist HPI 6 mon f/u HPI Details Pt reports having COVID one month ago. She reports residual cough, getting up some mucous. Will order chest XR. Will also send benzonatate. Denies fever, chills, chest pain, and shortness of breath. HTN: Blood pressure is stable. Will order labs. Hx of vitamin D deficiency. Will check vitamin D. [facility] Medical History Arthritis Elevated platelet count GERD (gastroesophageal reflux disease) Allergic rhinitis Elevated cholesterol Vitamin D deficiency Hypothyroid Osteoporosis HTN (hypertension) Surgical History S/P right cataract extraction History of excision of pilonidal cyst Hx of arthroscopic knee surgery H/O colonoscopy History of left knee replacement History of shoulder surgery History of section Family History Father Emphysema, unspecified Mother No problems noted. Paternal Aunt Pancreatic cancer Maternal Grandmother Pancreatic cancer Paternal Aunt Stroke Paternal Uncle Stroke Heart disease Social History Household Members: Spouse Housing: House Are you a primary manager intensive care unit to a significant other at home: No Do you presently have visiting nurse or other home services: No Alcohol intake: current Alcohol intake frequency: holidays/special occasions only Alcohol type: wine Comment: Tylenol given Patient Tobacco Use Status: Former Tobacco user Tobacco use type: Cigarette Cigarette Packs Per Day: 1 e-Cigarette/Vaping Use: Never Used Second Hand Smoke Exposure: No Current occupational status: retired Cognitive needs: No Hearing needs: No Vision needs: Yes Questionnaire PHQ-9 Over the last 2 weeks, how often have you been bothered by any of the following problems? 1. Little interest or pleasure in doing things: not at all 2. Feeling down, depressed, or hopeless: not at all 3. Trouble falling or staying asleep, or sleeping too much: not at all 4. Feeling tired or having little energy: not at all 5. Poor appetite or overeating: not at all 6. Feeling bad about yourself - or that you are a failure or have let yourself or your family down: not at all 7. Trouble concentrating on things, such as reading the newspaper or watching television: not at all 8. Moving or speaking so slowly that other people could have noticed. Or the opposite - being so fidgety or restless that you have been moving around a lot more than usual: not at all 9. Thoughts that you would be better off or of hurting yourself in some way: not at all Total score: 0 Source: Developed by Drs. Rogelio Oh, Dayanna Redmond, Tommy Fregoso and colleagues, with an educational shay from [employer]. Thrive Questionnaire Date Thrive assessed: 02/08/24 I am a: Patient What is your living situation today?: I have a steady place to live Within the past 12 months, did the food you bought not last and you didn't have the money to get more?: Never true Within the past 12 months, did you worry whether your food would run out before you got money to buy more?: Never true Do you have trouble paying for medicines?: No Do you have trouble getting transportation to medical appointments?: No Do you have trouble paying your heating and electricity bill?: No Do you have trouble taking care of your child, family member or friend?: No Do you have trouble with day-to-day activities such as bathing, preparing meals, shopping, managing finances, etc.?: No Are you interested in more education?: No Please select the resources that you would like help with: None Currently or been in a relationship where the following occur: No concerns reported THRIVE Score: 0 AUDIT C Alcohol Use Questionnaire (AUDIT-C) 3. How often do you have six or more drinks on one occasion?: Less than monthly Total Score: 1 ONIEL-7 AMB Questionnaire ONIEL-7 Date ONIEL - 7 assessed: 02/08/24 Feeling nervous, anxious, or on edge: 0 = Not at all Not being able to stop or control worryin = Not at all Worrying too much about different things: 0 = Not at all Trouble relaxin = Not at all Being so restless that it is hard to sit still: 0 = Not at all Becoming easily annoyed or irritable: 0 = Not at all Feeling afraid as if something awful might happen: 0 = Not at all Total ONIEL-7 score (0-4 normal; 5-9 mild; 10-14 moderate; 15-21 severe): 0 Source: Developed by Drs. Rogelio Oh, Dayanna Redmond, Tommy Fregoso and colleagues, with an educational shay from [employer]. Review of Systems Const Reports as per HPI Physical exam (Primary Care) Vital Signs: Last Vital Signs Pulse 73 08/25/24 08:36 BP 130/70 08/25/24 08:36 Pulse Ox 97 08/25/24 08:36 Oxygen Delivery Method Room Air 08/25/24 08:36 BMI result Body Mass Index 28.8 Tobacco/Smoking Status: Tobacco use Status Tobacco use date assessed 08/25/24 08/25/24 08:36 Patient Tobacco Use Status Former Tobacco user 08/25/24 08:36 Tobacco use type Cigarette 08/25/24 08:36 e-Cigarette/Vaping Use Never Used 08/25/24 08:36 PHQ-9: PHQ-9 Score PHQ-9: Total score 0 08/25/24 08:51 Thrive Assessment: Date of Thrive Assessment Date Thrive assessed 02/08/24 08/25/24 08:36 Currently or been in a relationship where the following occur: No concerns reported Const General: cooperative Orientation/consciousness: patient oriented x3 Resp Effort & Inspection: normal respiratory effort Auscultation: clear to auscultation bilaterally Cardio Rate: regular rate Rhythm: regular rhythm Heart sounds: S1 normal heart sound present and S2 normal heart sound present Neuro General: patient oriented x3 Psych Appearance: grossly normal Mental Status: mental status grossly normal Speech and movement: Normal speech and movement present Affect: normal affect Attitude: cooperative Thought process: Normal thought process present Thought content: Normal thought content present Insight: Good insight present (Psych) Judgement: Good judgement present (Psych) Assessment and Plan Assessment & Plan (1) Post covid-19 condition, unspecified: Code(s): U09.9 - Post COVID-19 condition, unspecified Plan: Chest XR ordered (2) Cough: Code(s): R05.9 - Cough, unspecified Plan: Chest XR ordered, benzonatate sent, further recommended OTC products (muccinex) to help with phlegm production (3) HTN (hypertension): Code(s): I10 - Essential (primary) hypertension Plan: Stable, labs ordered (4) Vitamin D deficiency: Code(s): E55.9 - Vitamin D deficiency, unspecified Plan: Vitamin D ordered Plan The patient agreed to the use of a medical claims representative for this encounter. Scribed for Vijay Bella FLIGHT CREW TIME CLERK- by Stormy Hyman medical claims representative, on 08/25/2024 at 08:55 EST. Orders: Orders XR chest 2V Today R05.9 - Cough, unspecified, U09.9 - Post COVID-19 condition, unspecified Complete Blood Count Auto Diff Today I10 - Essential (primary) hypertension Lipid Panel Today I10 - Essential (primary) hypertension Comprehensive [place]. Panel Fast Today I10 - Essential (primary) hypertension TSH reflex Free T4 Today I10 - Essential (primary) hypertension UA CC w/rflx Micro + Cult Today I10 - Essential (primary) hypertension Vitamin D 25-OH Total Today E55.9 - Vitamin D deficiency, unspecified Medications: New benzonatate 100 mg PO BID 12 days PRN 24 caps 0RF cough Coding Level of Care Code Est Pt Level 3 (25549) Diagnoses Post covid-19 condition, unspecified U09.9 Cough R05.9 HTN (hypertension) I10 Vitamin D deficiency E55.9
[2024-08-25 08:36] VITALS: BP 130/70; PULSE 73; O2SAT 97; BMI 28.8
== END 2024-08-25 09:07 | disposition home or self-care (01) ==
PROVIDERS: PCP Nurse Practitioner Family; Visit Provider Nurse Practitioner Family
DX: U09.9 Post COVID-19 condition, unspecified (principal); R05.9 Cough, unspecified; I10 Essential (primary) hypertension; E55.9 Vitamin D deficiency, unspecified

== ENCOUNTER → 2024-08-25 08:25 | Outpatient (BNVA) | payer MEDICARE, SELFPAY | PROVIDERS: PCP Nurse Practitioner Family; Visit Provider Nurse Practitioner Family | DX: U09.9 Post COVID-19 condition, unspecified (principal); R05.9 Cough, unspecified; I10 Essential (primary) hypertension; E55.9 Vitamin D deficiency, unspecified | CPT/HCPCS: 99212 ==

== ENCOUNTER 2024-08-25 09:10 | Outpatient (REF) | payer MEDICARE, SELFPAY ==
--- NOTE | ~2024-08-25 | XR_ITS ---
EXAMINATION: XR CHEST CLINICAL INFORMATION: R05.9 - Cough, unspecified COMPARISON: None available. TECHNIQUE: 2 views of the chest were obtained. FINDINGS: The cardiac, hilar, and mediastinal contours are normal. Aorta is calcified. Lungs demonstrate minimal scarring in the lingular distribution, unchanged. Lungs otherwise clear bilaterally. There is no pneumothorax or pleural effusion. There is no focal osseous or soft tissue abnormality. XR/XR chest 2V IMPRESSION: No active disease. Electronically signed by: Perico Escobar MD 11/01/2024 11:47 AM EST
== END 2024-08-25 09:11 | disposition home or self-care (01) ==
LOC: HO.HMGCX 09:10
PROVIDERS: PCP Nurse Practitioner Family; Visit Provider Nurse Practitioner Family
DX: R05.9 Cough, unspecified (principal); U09.9 Post COVID-19 condition, unspecified
CPT/HCPCS: 71046

== ENCOUNTER → 2024-08-25 09:12 | Outpatient (BNV) | payer MEDICARE, SELFPAY | PROVIDERS: PCP Nurse Practitioner Family; Visit Provider Radiology Diagnostic Radiology | DX: R05.9 Cough, unspecified (principal) | CPT/HCPCS: 71046 ==

== ENCOUNTER 2024-09-11 19:51 | Emergency (ER) | payer MEDICARE, SELFPAY ==
[2024-09-11 19:54] VITALS: BP 153/71; PULSE 74; RESP 18; TEMP 36.3; O2SAT 99; BMI 28.0
--- NOTE | 2024-09-11 19:56 | ED_ITS ---
HPI - General Adult General Chief complaint: Wound/Laceration Stated complaint: Lt leg laceration/fall Time Seen by Provider: 09/12/24 00:12 Source: patient, family, RN notes reviewed and old records reviewed Mode of arrival: ambulatory Limitations: no limitations History of Present Illness ED Provider: Ed HPI narrative: 69-year-old female presents for evaluation of a wound to her left leg. Patient reports that she was walking up her stairs in slippers while carrying several items. She states that her slippers got caught on the step and she fell forward. She scraped her left earl against the steps This caused a wound to the step in a moderate amount of bleeding The patient states that she has very frail skin and gets ?lots of skin tears. ? She was concerned due to the amount of bleeding with this wound Denies any head strike or loss of consciousness Related Data Home Medications ?Medication ?Instructions ?Recorded ?Confirmed cetirizine 10 mg tablet (Zyrtec) 20 mg PO BID 01/07/21 08/26/24 Previous Rx's ?Medication ?Instructions ?Recorded diclofenac sodium 1 % topical gel 4 g topical QID PRN pain 90 days 12/03/20 (Arthritis Pain (diclofenac)) #150 grams cholecalciferol (vitamin D3) 50 50 mcg PO DAILY 90 days #90 caps 01/07/21 mcg (2,000 unit) capsule amlodipine 5 mg tablet 5 mg PO DAILY #90 tabs 09/15/23 linaclotide 72 mcg capsule 72 mcg PO DAILY 90 days #90 caps 01/04/24 (Linzess) omeprazole 40 mg capsule,delayed 40 mg PO DAILY #90 caps 01/04/24 release hydrochlorothiazide 25 mg tablet 25 mg PO DAILY #90 tabs 04/06/24 potassium chloride 10 mEq 10 meq PO QPM #90 tabs 04/08/24 tablet,extended release(part/cryst) levothyroxine 50 mcg tablet 50 mcg PO QAM #90 tabs 06/21/24 fenofibrate 54 mg tablet 54 mg PO DAILY #90 tabs 06/26/24 atenolol 25 mg tablet 25 mg PO DAILY 90 days #90 tabs 07/18/24 atorvastatin 40 mg tablet 40 mg PO DAILY #90 tabs 08/23/24 benzonatate 100 mg capsule 100 mg PO BID PRN cough 12 days 08/25/24 #24 caps ezetimibe 10 mg tablet 10 mg PO DAILY 90 days #90 tabs 09/08/24 cephalexin 500 mg capsule 500 mg PO QID #28 caps 09/12/24 Allergies Allergy/AdvReac Type Severity Reaction Status Date / Time Influenza Virus Vaccines Allergy Severe arm Verified 09/11/24 19:58 swelling naproxen [From NAPROSYN] Allergy Severe GI PAIN Verified 09/11/24 19:58 oxycodone [OXYCODONE] Allergy Severe VOMITING Verified 09/11/24 19:58 sulfamethoxazole Allergy Severe FACIAL Verified 09/11/24 19:58 [From BACTRIM] SWELLING trimethoprim [From BACTRIM] Allergy Severe FACIAL Verified 09/11/24 19:58 SWELLING lisinopril [LISINOPRIL] Allergy Intermediate COUGH Verified 09/11/24 19:58 Review of Systems Constitutional: Constitutional: Denies headache(s) ENT: Denies headache(s) Integumentary/Breasts: Skin/Breast: Denies erythema and Reports wounds Neurologic: Denies headache(s) [facility] Past Medical History Medical History Arthritis Elevated platelet count GERD (gastroesophageal reflux disease) Allergic rhinitis Elevated cholesterol Vitamin D deficiency Hypothyroid Osteoporosis HTN (hypertension) Surgical History S/P right cataract extraction History of excision of pilonidal cyst Hx of arthroscopic knee surgery H/O colonoscopy History of left knee replacement History of shoulder surgery History of section Family History Family History Father Emphysema, unspecified Mother No problems noted. Paternal Aunt Pancreatic cancer Maternal Grandmother Pancreatic cancer Paternal Aunt Stroke Paternal Uncle Stroke Heart disease Social History Social History Household Members: Spouse Housing: House Are you a primary before and after school daycare worker to a significant other at home: No Do you presently have visiting nurse or other home services: No Alcohol intake: current Alcohol intake frequency: holidays/special occasions only Alcohol type: wine Comment: Tylenol given Patient Tobacco Use Status: Former Tobacco user Tobacco use type: Cigarette Cigarette Packs Per Day: 1 e-Cigarette/Vaping Use: Never Used Second Hand Smoke Exposure: No Current occupational status: retired Cognitive needs: No Hearing needs: No Vision needs: Yes Physical Exam ED Vital Signs: Vital Signs - 24 hr 09/12/24 00:02 09/12/24 01:01 Temperature 97.9 F 97.9 F Pulse Rate 63 63 Respiratory Rate 16 16 Blood Pressure 154/72 H 154/72 H Pulse Oximetry 97 97 Oxygen Delivery Method Room Air Room Air BMI result Body Mass Index 28.0 Const General: healthy appearing, comfortable, no acute distress, alert and awake Nutritional Appearance: well nourished Orientation/consciousness: patient oriented x3 HENMT Head: Yes normocephalic and Yes atraumatic Eyes Eyelids: Yes eyelids normal Conjunctivae: conjunctivae normal Sclerae: sclerae normal Corneas: corneas normal Pupils: Equal, round and reactive pupils present EOM: EOMs intact bilaterally Neck Neck: Yes full ROM Resp Effort & Inspection: normal respiratory effort, able to speak in complete sentences and not labored Skin Other: Approximately 7 cm U shaped skin tear to the left earl. There is no active bleeding. Subcutaneous tissue is visible underneath. No visible vasculature or osseous structures within the wound General skin exam: elasticity normal Neuro General: patient oriented x3 Cranial nerves: Yes Equal, round and reactive pupils present and Yes Bilaterally intact EOM present Cognition (Neuro): normal cognition Extrem Other: Moving all extremities well without any obvious deformities Course Course Course Narrative: RME: done by CESAR Inman. 69 year female presents to ED for left leg skin tear after falling up the stairs. Patient was walking up and she slipped and left leg hit the stairs which caused a large skin tear. Patient denies hitting head or loss of consciousness. Patient up-to-date with tetanus Medications Administered Discontinued Medications Generic Name Dose Route Start Last Admin Trade Name Freq PRN Reason Stop Dose Admin Cephalexin HCl 500 mg 09/12/24 00:58 09/12/24 01:02 Cephalexin 500 Mg Capsule PO 09/12/24 00:59 500 mg ONCE ONE Administration Medical Decision Making Medical Decision Making [facility] Narrative: The patient has a large skin tear. Approximately 7 cm. There was no active bleeding. The wound was cleaned with saline and Providine by myself. I discussed possible sutures versus Steri-Strips with the patient. The patient states that she has had numerous skin tears that have been similar. She does not believes sutures would hold, and the skin is quite friable. The patient would prefer not to have sutures placed and prefers Steri-Strips. She states that when the wound edges are approximated? it often looks discussing after a couple of days like it is getting infected. ? The wound was approximated with Steri-Strips, it was sterilely dressed. We will prescribe the patient a short course of antibiotics for prophylaxis Differential Diagnosis Differential Diagnoses: The differential diagnosis associated with the presentation includes Skin tear Laceration Acute wound Discharge Plan Discharge Clinical Impression: Noninfected skin tear of left leg Patient Disposition: Home, Self-Care Instructions: Laceration Without Closure (ED) Additional Instructions: Your wound was approximated with Steri-Strips Keep the area clean and dry. You may apply topical antibiotic every other day. Take cephalexin 4 times daily for the next week Follow-up with your primary doctor, return for new or worsening symptoms Prescriptions: New cephalexin 500 mg capsule 500 mg PO QID Qty: 28 0RF No Action diclofenac sodium [Arthritis Pain (diclofenac)] 1 % gel 4 g topical QID PRN (Reason: pain) 90 Days Qty: 150 1RF Rx Instructions: apply to single knee, ankle, foot; for foot includes sole/toes/top of foot amlodipine 5 mg tablet 5 mg PO DAILY Qty: 90 3RF omeprazole 40 mg capsule,delayed release(DR/EC) 40 mg PO DAILY Qty: 90 1RF Linzess 72 mcg capsule 72 mcg PO DAILY 90 Days Qty: 90 1RF hydrochlorothiazide 25 mg tablet 25 mg PO DAILY Qty: 90 1RF potassium chloride 10 mEq tablet,ER particles/crystals 10 meq PO QPM Qty: 90 1RF levothyroxine 50 mcg tablet 50 mcg PO QAM Qty: 90 1RF fenofibrate 54 mg tablet 54 mg PO DAILY Qty: 90 1RF atenolol 25 mg tablet 25 mg PO DAILY 90 Days Qty: 90 1RF atorvastatin 40 mg tablet 40 mg PO DAILY Qty: 90 1RF ezetimibe 10 mg tablet 10 mg PO DAILY 90 Days Qty: 90 1RF cetirizine [Zyrtec] 10 mg tablet 20 mg PO BID cholecalciferol (vitamin D3) 50 mcg (2,000 unit) capsule 50 mcg PO DAILY 90 Days Qty: 90 2RF benzonatate 100 mg capsule 100 mg PO BID PRN (Reason: cough) 12 Days Qty: 24 0RF Interventions: ED Discharge Assessment Last Done: 09/12/24 01:01 Discharge Date/Time: 09/12/24 01:05 Print Language: Uzbek
[2024-09-11 21:49] VITALS: BP 138/72; PULSE 61; RESP 19; TEMP 36.5; O2SAT 97
[2024-09-12 00:02] VITALS: BP 154/72; PULSE 63; RESP 16; TEMP 36.6; O2SAT 97
[2024-09-12 01:01] VITALS: BP 154/72; PULSE 63; RESP 16; TEMP 36.6; O2SAT 97
[2024-09-12] MEDS: cephALEXin 500 MG CAPSULE PO (01:02)
== END 2024-09-12 01:05 | disposition home or self-care (01) ==
PROVIDERS: Emergency Provider Emergency Medicine; PCP Nurse Practitioner Family
DX: S81.812A Laceration without foreign body, left lower leg, initial encounter (principal); W10.9XXA Fall (on) (from) unspecified stairs and steps, initial encounter; Y93.01 Activity, walking, marching and hiking; Y92.89 Other specified places as the place of occurrence of the external cause; Y99.8 Other external cause status; Z79.899 Other long term (current) drug therapy
CPT/HCPCS: 99284

== ENCOUNTER 2024-10-13 11:46 | Inpatient (IN) | payer MEDICARE, SELFPAY ==
--- NOTE | ~2024-10-13 | XR_ITS ---
EXAMINATION: XR TIBIA AND FIBULA, LEFT CLINICAL INFORMATION: Wound, osteomyelitis evaluation. COMPARISON: None available. TECHNIQUE: AP and lateral views of the left tibia and fibula were obtained. FINDINGS: Left knee prosthesis. No evidence for acute fracture or dislocation. No erosive process seen. Cortical surfaces of bone intact. XR/XR tibia fibula LT 2V IMPRESSION: Postoperative changes of the left knee. No acute fracture or dislocation seen. No evidence for erosive abnormality of bony cortex. Electronically signed by: Gurmeet Zimmerman MD 10/13/2024 04:06 PM [facility]
--- NOTE | 2024-10-13 12:01 | ED.SKABFB ---
HPI - Skin/Abscess/Foreign Bdy General Chief complaint: Skin/Abscess/Foreign Body Stated complaint: wound l leg Time Seen by Provider: 10/13/24 17:40 Source: patient, family and old records reviewed Mode of arrival: ambulatory Limitations: no limitations History of Present Illness ED Provider: GARIMA HPI narrative: 69 yo female with PMH of HLD, HTN, osteoporosis, GERD, hypothyroidism just seen here on 09/11 for LLE skin tear wound edges approximated with steri strips - hx of infections in the past with frequent skin tears, has been on 2nd course of cephalexin since 10/11 comes to ED today with worsening drainage, pain, swelling, redness. Just went to who debrided the skin and then referred her to the ED. They removed scabs and the flap. She notes they put a mepilex dressing on and now the drainage is much worse. She has hx of skin tear infections. MD complaint: lesion and discoloration Onset (ago): month(s) (1) Tetanus up to date: yes Location: LLE Severity: moderate Quality: aching Pain Consistency: constant Relieving factors: none Exacerbating factors: palpation Context: other (recent skin tear) Associated symptoms: other (pain) Treatments prior to arrival: bandages, antibiotic and other Related Data Home Medications ?Medication ?Instructions ?Recorded ?Confirmed cetirizine 10 mg tablet (Zyrtec) 20 mg PO BID 01/07/21 08/26/24 Previous Rx's ?Medication ?Instructions ?Recorded diclofenac sodium 1 % topical gel 4 g topical QID PRN pain 90 days 12/03/20 (Arthritis Pain (diclofenac)) #150 grams cholecalciferol (vitamin D3) 50 50 mcg PO DAILY 90 days #90 caps 01/07/21 mcg (2,000 unit) capsule amlodipine 5 mg tablet 5 mg PO DAILY #90 tabs 09/15/23 linaclotide 72 mcg capsule 72 mcg PO DAILY 90 days #90 caps 01/04/24 (Linzess) hydrochlorothiazide 25 mg tablet 25 mg PO DAILY #90 tabs 04/06/24 levothyroxine 50 mcg tablet 50 mcg PO QAM #90 tabs 06/21/24 fenofibrate 54 mg tablet 54 mg PO DAILY #90 tabs 06/26/24 atenolol 25 mg tablet 25 mg PO DAILY 90 days #90 tabs 07/18/24 atorvastatin 40 mg tablet 40 mg PO DAILY #90 tabs 08/23/24 benzonatate 100 mg capsule 100 mg PO BID PRN cough 12 days 08/25/24 #24 caps ezetimibe 10 mg tablet 10 mg PO DAILY 90 days #90 tabs 09/08/24 cephalexin 500 mg capsule 500 mg PO QID #28 caps 09/12/24 omeprazole 40 mg capsule,delayed 40 mg PO DAILY #90 caps 10/10/24 release potassium chloride 10 mEq 10 meq PO QPM #90 tabs 10/10/24 tablet,extended release(part/cryst) Allergies Allergy/AdvReac Type Severity Reaction Status Date / Time Influenza Virus Vaccines Allergy Severe arm Verified 10/13/24 12:06 swelling naproxen [From NAPROSYN] Allergy Severe GI PAIN Verified 10/13/24 12:06 oxycodone [OXYCODONE] Allergy Severe VOMITING Verified 10/13/24 12:06 sulfamethoxazole Allergy Severe FACIAL Verified 10/13/24 12:06 [From BACTRIM] SWELLING trimethoprim [From BACTRIM] Allergy Severe FACIAL Verified 10/13/24 12:06 SWELLING lisinopril [LISINOPRIL] Allergy Intermediate COUGH Verified 10/13/24 12:06 Review of Systems Review of Systems: Constitutional : No Fever, No Chills ENT/Mouth : No sore throat, No Rhinorrhea Eyes: No Eye Pain, No Swelling, No Redness Cardiovascular : No Chest Pain, No SOB Respiratory : No Cough, No Sputum Gastrointestinal : No Nausea, No Vomiting, No Diarrhea, No abdominal Pain Genitourinary : No Dysuria, No Hematuria Musculoskeletal : No joint pain, No Myalgias, No Joint Swelling Skin : No Skin Lesions, positive skin rash Neuro : No Weakness, No Numbness, No Headache All other systems reviewed and are negative PMFSH Past Medical History Attestation statement: The following information was validated with the patient. Source: old records reviewed Medical History Arthritis Elevated platelet count GERD (gastroesophageal reflux disease) Allergic rhinitis Elevated cholesterol Vitamin D deficiency Hypothyroid Osteoporosis HTN (hypertension) Surgical History S/P right cataract extraction History of excision of pilonidal cyst Hx of arthroscopic knee surgery H/O colonoscopy History of left knee replacement History of shoulder surgery History of section Family History Family History Father Emphysema, unspecified Mother No problems noted. Paternal Aunt Pancreatic cancer Maternal Grandmother Pancreatic cancer Paternal Aunt Stroke Paternal Uncle Stroke Heart disease Social History Social History Household Members: Spouse Housing: House Are you a primary rn acute care to a significant other at home: No Do you presently have visiting nurse or other home services: No Alcohol intake: current Alcohol intake frequency: holidays/special occasions only Alcohol type: wine Comment: Tylenol given Patient Tobacco Use Status: Former Tobacco user Tobacco use type: Cigarette Cigarette Packs Per Day: 1 Smoked in Last 30 Days: No e-Cigarette/Vaping Use: Never Used Second Hand Smoke Exposure: No Use of substances other than those prescribed or required for medical reasons: No Advance Directives: No Advance Directives Information Provided: Yes Current occupational status: retired Cognitive needs: No Hearing needs: No Vision needs: Yes Physical Exam Vital Signs: Vital Signs: Last Vital Signs Temp 97.9 F 10/13/24 20:15 Pulse 61 10/13/24 20:15 Resp 15 10/13/24 20:15 BP 121/55 L 10/13/24 20:15 Pulse Ox 95 10/13/24 20:15 O2 Del Method Room Air 10/13/24 20:15 BMI result Body Mass Index 28.7 Appearance: Alert. Oriented X3. No acute distress. Eyes: Pupils equal, round and reactive to light. ENT: Pharynx normal. Neck: Normal inspection. Neck supple. CVS: Normal heart rate and rhythm. Pulses normal. Respiratory: No respiratory distress. Breath sounds normal. Abdomen: Soft and nontender. Skin: Skin warm and dry. Normal skin color. Normal skin turgor. Extremities: No lower extremity edema. L earl mild warmth and erythema with purulent exudate noted on abscess, open wound on leg - distal NV intact Neuro: Oriented X 3. No motor deficit. No sensory deficit. Course Course Course Narrative: This is a Rapid Medical Exam performed in triage by Luanne Almodovar PA-C. Full HPI, ROS and PE to be performed by primary ED provider. 69yo F w/PMHx HTN presenting to the ED c/o worsening wound to LLE s/p falling up the stairs weeks ago, was seen in our ED for large skin tear. Was seen at 2 days ago & area was debrided & went back for dressing change today and was sent to the ED. Is currently on Keflex x2 days. +drainage, denies fever PE: +deep wound to LLE w/granulation tissue. slight surrounding erythema. +ttp. no flutuance or induration Plan: labs, blood cx Medications Administered Discontinued Medications Generic Name Dose Route Start Last Admin Trade Name Freq PRN Reason Stop Dose Admin Acetaminophen 650 mg 10/13/24 18:37 10/13/24 18:49 Acetaminophen 325 Mg Tablet PO 10/13/24 18:38 650 mg ONCE ONE Administration Piperacillin Sod/Tazobactam 50 mls @ 100 mls/hr 10/13/24 17:48 10/13/24 19:25 Sod 3.375 gm/ Sodium Chloride IV 10/13/24 18:17 Infused ONCE ONE Infusion Vancomycin HCl 1,500 mg/ 500 mls @ 333.333 mls/hr 10/13/24 18:00 10/13/24 20:55 Sodium Chloride IV 10/13/24 19:29 Infused ONCE ONE Infusion Medical Decision Making Medical Decision Making [facility] Narrative: 69 yo female with PMH of HLD, HTN, osteoporosis, GERD, hypothyroidism just seen here on 09/11 for LLE s/p two rounds of cephalexin and debridement today at urgent care who now has worsening pain, drainage, erythema - at this time labs, cultures, lactic acid - infl markers, xray and start on IV antibiotics. Possible admission - denies systemic symptoms Differential Diagnosis Differential Diagnoses: The differential diagnosis associated with the presentation includes cellulitis Admission/Observation Consideration of admission/observation: Escalation of care including admission/observation considered streaks going up leg at this time will admit Consult Healthcare Provider Management of the patient was discussed with: Hospitalist (will admit) Lab Data [facility] Lab Attestation statement: I reviewed the patient's lab results. 10/13/24 12:22 10/13/24 12:22 Labs: Lab Results 10/13/24 Range/Units 12:22 WBC 15.6 H (4.8-10.8) X10*3/uL RBC 4.46 (4.20-5.50) X10*6/uL Hgb 13.1 (12.0-16.0) g/dl Hct 38.5 (37.0-47.0) % MCV 86.3 (80.0-98.0) fL MCH 29.4 (27.0-33.0) pg MCHC 34.0 (31.0-35.0) g/dl RDW 14.4 (11.0-16.0) % Plt Count 529 H D (160-400) X10*3/uL MPV 9.7 (9.4-12.3) fL Immature Gran % (Auto) 0.5 H (0.0-0.4) % Neut % (Auto) 65.9 (45-73) % Lymph % (Auto) 27.6 (20-40) % [place] % (Auto) 4.6 (2-11) % Eos % (Auto) 1.1 (0-4) % Baso % (Auto) 0.3 (0-2) % Lymph # (Auto) 4.3 (1.2-4.9) X10*3/uL [place] # (Auto) 0.7 (0.1-1.2) X10*3/uL Eos # (Auto) 0.2 (0.0-0.4) X10*3/uL Baso # (Auto) 0.1 (0.0-0.2) X10*3/uL Abs Immat Gran (auto) 0.08 H (0.00-0.03) X10*3/uL Absolute Neuts (auto) 10.3 H (2.0-8.3) x10*3/uL Absolute Nucleated RBC 0.000 (0.0-0.012) X10*3/uL Nucleated RBC % (auto) 0.0 (0.0-0.2) /100WBC ESR 5 (0-20) MM/HR Sodium 137 (135-145) mmol/L Potassium 3.8 (3.3-5.1) mmol/L Chloride 99 (96-108) mmol/L Carbon Dioxide 30 H (22-29) mmol/L Anion Gap 12 (12-20) BUN 20 H (9-16) mg/dL Creatinine 0.96 (0.5-1.4) mg/dL Estim Creat Clear Calc 48.4 Estimated GFR 57 Random Glucose 157 H (60-115) mg/dL Lactic Acid 1.6 (0.5-2.0) mmol/L Calcium 9.7 (8.4-10.2) mg/dL Total Bilirubin 0.5 (0.0-1.0) mg/dL Direct Bilirubin 0.2 (0.0-0.5) mg/dL AST 14 (5-31) U/L ALT 16 (0-31) U/L Alkaline Phosphatase 90 (39-117) U/L C-Reactive Protein 0.12 (< or = 0.50) mg/dL Total Protein 7.0 (6.5-8.0) g/dL Albumin 4.3 (3.5-5.0) g/dL Independent Interpretation I performed an independent interpretation of an: Plain X-Ray (normal ) Radiology Impression Discussion of test interpretation with radiology: I have reviewed the radiologist's reading. Independent Historian Clinical information obtained from an independent historian. History obtained from or confirmed by: Spouse External Record Review External record reviewed: Outpatient record Discharge Plan Discharge Clinical Impression: Infected skin tear, Elevated WBC count Patient Disposition: Admitted As Inpatient Prescriptions: No Action diclofenac sodium [Arthritis Pain (diclofenac)] 1 % gel 4 g topical QID PRN (Reason: pain) 90 Days Qty: 150 1RF Rx Instructions: apply to single knee, ankle, foot; for foot includes sole/toes/top of foot amlodipine 5 mg tablet 5 mg PO DAILY Qty: 90 3RF Linzess 72 mcg capsule 72 mcg PO DAILY 90 Days Qty: 90 1RF hydrochlorothiazide 25 mg tablet 25 mg PO DAILY Qty: 90 1RF levothyroxine 50 mcg tablet 50 mcg PO QAM Qty: 90 1RF fenofibrate 54 mg tablet 54 mg PO DAILY Qty: 90 1RF atenolol 25 mg tablet 25 mg PO DAILY 90 Days Qty: 90 1RF atorvastatin 40 mg tablet 40 mg PO DAILY Qty: 90 1RF ezetimibe 10 mg tablet 10 mg PO DAILY 90 Days Qty: 90 1RF potassium chloride 10 mEq tablet,ER particles/crystals 10 meq PO QPM Qty: 90 1RF omeprazole 40 mg capsule,delayed release(DR/EC) 40 mg PO DAILY Qty: 90 1RF cephalexin 500 mg capsule 500 mg PO QID Qty: 28 0RF cetirizine [Zyrtec] 10 mg tablet 20 mg PO BID cholecalciferol (vitamin D3) 50 mcg (2,000 unit) capsule 50 mcg PO DAILY 90 Days Qty: 90 2RF benzonatate 100 mg capsule 100 mg PO BID PRN (Reason: cough) 12 Days Qty: 24 0RF Print Language: Montenegrin
[2024-10-13 12:02] VITALS: BP 152/67; PULSE 70; RESP 20; TEMP 36.4; O2SAT 99; BMI 28.7
[2024-10-13 12:28] LABS: MANUAL DIFF FLAG NO
[2024-10-13 12:30] LABS: Basophils Absolute Auto 0.1 X10*3/uL (0.0-0.2); Basophils Percent Auto 0.3 % (0-2); Eosinophils Absolute Auto 0.2 X10*3/uL (0.0-0.4); Eosinophils Percent Auto 1.1 % (0-4); Hematocrit 38.5 % (37.0-47.0); Hemoglobin 13.1 g/dl (12.0-16.0); Imm Gran Abs Auto 0.08 X10*3/uL (0.00-0.03); Imm Gran Pct Auto 0.5 % (0.0-0.4); Lymphocytes Absolute Auto 4.3 X10*3/uL (1.2-4.9); Lymphocytes Percent Auto 27.6 % (20-40); Mean Corpuscular Hemoglobin 29.4 pg (27.0-33.0); Mean Corpuscular Volume 86.3 fL (80.0-98.0); Mean Platelet Volume 9.7 fL (9.4-12.3); Monocytes Absolute Auto 0.7 X10*3/uL (0.1-1.2); Monocytes Percent Auto 4.6 % (2-11); Neutrophils Absolute Auto 10.3 x10*3/uL (2.0-8.3); Neutrophils Percent Auto 65.9 % (45-73); Platelet Count 529 X10*3/uL (160-400); Red Blood Count 4.46 X10*6/uL (4.20-5.50); Red Cell Distribution Width 14.4 % (11.0-16.0); White Blood Count 15.6 X10*3/uL (4.8-10.8)
[2024-10-13 12:43] LABS: Lactic Acid 1.6 mmol/L (0.5-2.0)
[2024-10-13 12:44] LABS: Alanine Aminotransferase 16 U/L (0-31); Albumin Level 4.3 g/dL (3.5-5.0); Alkaline Phosphatase 90 U/L (39-117); Anion Gap 12 (12-20); Aspartate Amino Transferase 14 U/L (5-31); Bilirubin Direct 0.2 mg/dL (0.0-0.5); Bilirubin Total 0.5 mg/dL (0.0-1.0); Blood Urea Nitrogen 20 mg/dL (9-16); Calcium 9.7 mg/dL (8.4-10.2); Carbon Dioxide 30 mmol/L (22-29); Chloride 99 mmol/L (96-108); Creatinine Clr Calc Pharmacy 48.4; Estimated Glomerular Filt Rate 57; Glucose Random 157 mg/dL (60-115); Potassium 3.8 mmol/L (3.3-5.1); Sodium 137 mmol/L (135-145)
[2024-10-13 18:10] LABS: C Reactive Protein 0.12 mg/dL (< or = 0.50)
[2024-10-13 18:46] LABS: Erythrocyte Sedimentation Rate 5 MM/HR (0-20)
[2024-10-13] MEDS: Piperacillin Sodium/Tazobactam 3.375 GM in 0.9 % Sodium Chloride 50 ML IV (18:48)
[2024-10-13] MEDS: Acetaminophen 325 MG TABLET 650 MG PO (18:49)
[2024-10-13] MEDS: vancomycin HCL 1,500 MG in 0.9 % Sodium Chloride 500 ML 333.33 MG IV (19:24)
[2024-10-13 20:15] VITALS: BP 121/55; PULSE 61; RESP 15; TEMP 36.6; O2SAT 95
--- NOTE | 2024-10-13 22:20 | PM.IMHP ---
History of Present Illness Date of Service: 10/13/24 Chief Complaint: Foot infection This is a 69-year-old female with pertinent history of hypothyroidism, hypertension, mixed hyperlipidemia, gastroesophageal reflux disease who presents to the emergency department for concerns of leg infection. Patient was seen in the ER a month ago after she fell and had a skin tear on left lower extremity. Patient completed antibiotic course and states her leg was doing better and healing until 3 days prior to presentation when she noticed redness, swelling, pain and purulent drainage from the wound. Patient went to urgent care 3 days ago and was put on antibiotic and skin was debrided. Patient is been on p.o. antibiotics since 10/11 but states the infection has worsened with foul-smelling purulent drainage. No fever, chills, chest pain, palpitations, shortness of breath, abdominal pain, changes in urinary or bowel habits. In the emergency department, patient was initiated empiric IV antibiotics. WBC 15.6 Review of Systems Constitutional: Constitutional: Reports no additional constitutional complaints Cardiovascular: Cardiovascular: Reports no additional cardiovascular complaints Respiratory: Respiratory: Reports no additional respiratory complaints Gastrointestinal: Gastrointestinal: Reports no additional gastrointestinal complaints Genitourinary: Genitourinary: Reports no additional female genitourinary complaints [facility] Medical History Arthritis Elevated platelet count GERD (gastroesophageal reflux disease) Allergic rhinitis Elevated cholesterol Vitamin D deficiency Hypothyroid Osteoporosis HTN (hypertension) Family History Father Emphysema, unspecified Mother No problems noted. Paternal Aunt Pancreatic cancer Maternal Grandmother Pancreatic cancer Paternal Aunt Stroke Paternal Uncle Stroke Heart disease Surgical History S/P right cataract extraction History of excision of pilonidal cyst Hx of arthroscopic knee surgery H/O colonoscopy History of left knee replacement History of shoulder surgery History of section Social History Household Members: Spouse Housing: House Are you a primary director career to a significant other at home: No Do you presently have visiting nurse or other home services: No Alcohol intake: current Alcohol intake frequency: holidays/special occasions only Alcohol type: wine Comment: Tylenol given Patient Tobacco Use Status: Former Tobacco user Tobacco use type: Cigarette Cigarette Packs Per Day: 1 Smoked in Last 30 Days: No e-Cigarette/Vaping Use: Never Used Second Hand Smoke Exposure: No Use of substances other than those prescribed or required for medical reasons: No Advance Directives: No Advance Directives Information Provided: Yes Current occupational status: retired Cognitive needs: No Hearing needs: No Vision needs: Yes Meds Allergies Allergy/AdvReac Type Severity Reaction Status Date / Time Influenza Virus Vaccines Allergy Severe arm Verified 10/13/24 12:06 swelling naproxen [From NAPROSYN] Allergy Severe GI PAIN Verified 10/13/24 12:06 oxycodone [OXYCODONE] Allergy Severe VOMITING Verified 10/13/24 12:06 sulfamethoxazole Allergy Severe FACIAL Verified 10/13/24 12:06 [From BACTRIM] SWELLING trimethoprim [From BACTRIM] Allergy Severe FACIAL Verified 10/13/24 12:06 SWELLING lisinopril [LISINOPRIL] Allergy Intermediate COUGH Verified 10/13/24 12:06 Home Medications ?Medication ?Instructions ?Recorded ?Confirmed ?Last Taken ?Type cetirizine 10 mg tablet (Zyrtec) 20 mg PO BID 01/07/21 10/13/24 10/13/24 History linaclotide 72 mcg capsule 72 mcg PO DAILY PRN Constipation 10/13/24 10/13/24 Unknown History (Zurizesjose) Physical Exam Vital Signs and Narrative: Vital Signs: Last Vital Signs Temp 97.9 F 10/13/24 20:15 Pulse 61 10/13/24 20:15 Resp 15 10/13/24 20:15 BP 121/55 L 10/13/24 20:15 Pulse Ox 95 10/13/24 20:15 O2 Del Method Room Air 10/13/24 20:15 BMI result Body Mass Index 28.7 Middle-aged female lying in bed in no distress Neck supple, no JVD Regular rate and rhythm, S1-S2 heard Regular breath sounds bilaterally, no wheezing or crackles appreciated Abdomen soft nontender, no guarding, no rigidity Patient is awake, alert and oriented to self, place, time and person ; no focal motor deficit Psych: Normal mood Left lower extremity with purulent drainage, erythema as pictured below Skin: Other: Results Labs 10/13/24 12:22 10/13/24 12:22 Labs: Laboratory Results - last 24 hr 10/13/24 12:22 MCV 86.3 MCH 29.4 MCHC 34.0 RDW 14.4 Plt Count 529 H D MPV 9.7 Immature Gran % (Auto) 0.5 H Neut % (Auto) 65.9 Lymph % (Auto) 27.6 [place] % (Auto) 4.6 Eos % (Auto) 1.1 Baso % (Auto) 0.3 Lymph # (Auto) 4.3 [place] # (Auto) 0.7 Eos # (Auto) 0.2 Baso # (Auto) 0.1 Abs Immat Gran (auto) 0.08 H Absolute Neuts (auto) 10.3 H Absolute Nucleated RBC 0.000 Nucleated RBC % (auto) 0.0 ESR 5 Anion Gap 12 Estim Creat Clear Calc 48.4 Estimated GFR 57 Random Glucose 157 H Lactic Acid 1.6 Calcium 9.7 Total Bilirubin 0.5 Direct Bilirubin 0.2 AST 14 ALT 16 Alkaline Phosphatase 90 C-Reactive Protein 0.12 Total Protein 7.0 Albumin 4.3 Imaging Radiologist's Impressions: Impressions Tibia/Fibula X-Ray 10/13/24 12:30 IMPRESSION: Postoperative changes of the left knee. No acute fracture or dislocation seen. No evidence for erosive abnormality of bony cortex. Electronically signed by: Gurmeet Zimmerman MD 10/13/2024 04:06 PM [facility] Assessment and Plan (1) Cellulitis of left lower extremity: Status: Acute Plan This is a 69-year-old female with pertinent history of hypothyroidism, hypertension, mixed hyperlipidemia, gastroesophageal reflux disease who presents to the emergency department for concerns of leg infection. #. Left lower extremity purulent cellulitis: Will admit patient with IV vancomycin for extensive cellulitis. Consulting General surgery for possible debridement. Monitor for improvement. Wound care #. Mixed hyperlipidemia: On statin and Zetia #. Hypertension: Continue home antihypertensives #. Hypothyroidism: On Synthroid #. Gastroesophageal reflux disease: On PPI Med rec pending DVT prophylaxis: Lovenox Full code Admit as inpatient and will require two night minimum hospital stay for IV antibiotics (as above), which is not possible in a lesser acute setting. Quality Stroke Does the patient have a stroke diagnosis?: No VTE Prior VTE?: No VTE Risk Level:: Medical - moderate - high VTE Device Contraindication: Treatment Not Indicated VTE Drug Contraindication: N/A - Med Ordered
--- NOTE | 2024-10-13 22:31 | PHA.PROG ---
Admission Date/Time: October 13, 2024 22:17 Indication: Skin Weight in k.946 kg Adjusted body weight in Kg: [place] body weight in Kg: Obesity Dosing Indication % IBW: Serum Creatinine - Last 168 Hours 10/13/24 12:22 Creatinine 0.96 Estimated CrCl and GFR - Last 168 Hours 10/13/24 12:22 Estim Creat Clear Calc 48.4 Estimated GFR 57 Vancomycin Loading Dose: 1500mg Current Vancomycin Dosing Regimen: 1500mg q24h Vancomycin Monitoring using AUC goal of 400 - 600 range with trough as surrogate marker: 538 mg/L Date and Time for next Vancomycin Level to be drawn: 10/15 @ 1700 Pharmacist Comments on Vancomycin Plan: Starting 1500mg q24h. Projected trough is 15.5 mg/L and will order lab for Thursday the before 3rd dose. Vancomycin dosing will take advantage of [employer] as a clinical decision support tool that uses Bayesian modeling to calculate individual patient's pharmacokinetic parameters and forecast the patient's drug concentration time course with the target goal AUC 24 range of 400 - 600 mg/L/hr.
[2024-10-13 22:36] VITALS: BP 134/64; PULSE 58; RESP 15; TEMP 36.6; O2SAT 96
[2024-10-13] MEDS: Enoxaparin Sodium 40 MG/0.4 ML SYRINGE SUBCUT (22:54)
--- NOTE | 2024-10-13 23:31 | MHC.EDTECH ---
late entry: this tech assumed care of pt at 2300. When rounding the pt was witnessed to be in no apparent distress and resting quietly in stretcher. Inquired if she was in need of anything at this time in which she stated she did not. Verbal reassurance given.
[2024-10-14] MEDS: 0.9 % Sodium Chloride Flush 3 ML SYRINGE IVFLUSH ×4 (00:36→22:32)
--- NOTE | 2024-10-14 00:40 | PC.NURSE ---
Patient brought to overflow bed 2 by chief technologist. In overflow, patient transferred into a hospital bed. Patient is alert and oriented x4, pleasant and cooperative. Patient reports pain in left earl wound site 4/10 at present-per patient pain is at tolerable level. 20 G IV line is patent, IV line flushed with 3 mL of NS per MAR. Patient requested turkey sandwich and ana lilia jesus manuel, provided and tolerated well. Patient noted to be ambulating independently with steady ait. Patient oriented to overflow unit, call chester placed within patient's reach. Plan of care ongoing.
[2024-10-14 06:55] LABS: MANUAL DIFF FLAG NO
[2024-10-14 06:56] LABS: Basophils Percent Auto 0.4 % (0-2); Eosinophils Absolute Auto 0.2 X10*3/uL (0.0-0.4); Eosinophils Percent Auto 2.1 % (0-4); Hematocrit 35.9 % (37.0-47.0); Hemoglobin 11.8 g/dl (12.0-16.0); Imm Gran Abs Auto 0.04 X10*3/uL (0.00-0.03); Imm Gran Pct Auto 0.4 % (0.0-0.4); Lymphocytes Absolute Auto 4.8 X10*3/uL (1.2-4.9); Lymphocytes Percent Auto 45.1 % (20-40); Mean Corpuscular HGB Conc 32.9 g/dl (31.0-35.0); Mean Corpuscular Hemoglobin 28.4 pg (27.0-33.0); Mean Corpuscular Volume 86.5 fL (80.0-98.0); Mean Platelet Volume 9.9 fL (9.4-12.3); Monocytes Absolute Auto 0.6 X10*3/uL (0.1-1.2); Monocytes Percent Auto 5.2 % (2-11); Neutrophils Percent Auto 46.8 % (45-73); Platelet Count 449 X10*3/uL (160-400); Red Blood Count 4.15 X10*6/uL (4.20-5.50); Red Cell Distribution Width 14.6 % (11.0-16.0); White Blood Count 10.7 X10*3/uL (4.8-10.8)
[2024-10-14 07:18] LABS: Anion Gap 11 (12-20); Blood Urea Nitrogen 17 mg/dL (9-16); Carbon Dioxide 26 mmol/L (22-29); Chloride 104 mmol/L (96-108); Creatinine Clr Calc Pharmacy 55.3; Estimated Glomerular Filt Rate > 60; Glucose Random 98 mg/dL (60-115); Potassium 3.6 mmol/L (3.3-5.1); Sodium 137 mmol/L (135-145)
[2024-10-14 07:41] VITALS: BP 137/62; PULSE 61; RESP 18; TEMP 36.8; O2SAT 95
--- NOTE | 2024-10-14 09:15 | P.CONGS_ITS ---
History of Present Illness Consult details Consult date: 10/14/24 <EMERALD Haas Last Filed: 10/14/24 11:13> Reason for consult: wound care <EMERALD Haas Last Filed: 10/14/24 11:13> Requesting physician: Miya Connor <EMERALD Haas Last Filed: 10/14/24 11:13> Narrative: Carmen Chowdhury is a 69-year-old female with significant PMH of hypothyroidism, hypertension, hyperlipidemia, GERD who presented to the ED with concerns of leg infection. Patient was seen in the ER a month ago after she fell up the stairs and sustained a skin tear of the left lower extremity. Patient completed her antibiotic course and stated her leg had been healing well until about 3 days prior to presentation when she noticed increasing redness, swelling and pain. She also reports purulent drainage from the wound. Patient therefore went to urgent care 3 days ago and was put on antibiotic and skin was debrided. Despite treatment, the wound has worsened now with foul-smelling drainage. No fever, chills, nausea, vomiting. Work up in the ED included CBC, BMP, LFTs which was significant for a leukocytosis of 15.6 and slight GIO. She was admitted to the medicine service for further treatment of the left leg wound and cellulitis. General surgery was consulted for wound care, possible debridement. <EMERALD Haas Last Filed: 10/14/24 11:13> Review of Systems 2 Constitutional: Constitutional: Denies chills and Denies fever(s) < EMERALD Haas Last Filed: 10/14/24 11:13> ENT: Denies dizziness <EMERALD Haas Last Filed: 10/14/24 11:13> Cardiovascular: Cardiovascular: Denies chest pain and Denies dyspnea < EMERALD Haas Last Filed: 10/14/24 11:13> Respiratory: Respiratory: Denies dyspnea <EMERALD Haas Last Filed: 10/14/24 11:13> Gastrointestinal: Gastrointestinal: Denies nausea and Denies vomiting < EMERALD Haas Filed: 10/14/24 11:13> Integumentary/Breasts: Skin/Breast: Reports as per HPI <Ros Clark PA-C - Last Filed: 10/14/24 11:13> Neurologic: Denies dizziness <Ros Clark PA-C - Last Filed: 10/14/24 11:13> PMFSH Past Medical History Medical History: Medical History Arthritis Elevated platelet count GERD (gastroesophageal reflux disease) Allergic rhinitis Elevated cholesterol Vitamin D deficiency Hypothyroid Osteoporosis HTN (hypertension) <EMERALD Haas Last Filed: 10/14/24 11:13> Family History Family History: Family History Father Emphysema, unspecified Mother No problems noted. Paternal Aunt Pancreatic cancer Maternal Grandmother Pancreatic cancer Paternal Aunt Stroke Paternal Uncle Stroke Heart disease <Ros Clark PA-C - Last Filed: 10/14/24 11:13> Surgical History Surgical History: Surgical History S/P right cataract extraction History of excision of pilonidal cyst Hx of arthroscopic knee surgery H/O colonoscopy History of left knee replacement History of shoulder surgery History of section <EMERALD Haas Last Filed: 10/14/24 11:13> Social History Social History: Social History Household Members: Spouse Housing: House Are you a primary senior care provider to a significant other at home: No Do you presently have visiting nurse or other home services: No Alcohol intake: current Alcohol intake frequency: holidays/special occasions only Alcohol type: wine Comment: Tylenol given Patient Tobacco Use Status: Former Tobacco user Tobacco use type: Cigarette Cigarette Packs Per Day: 1 Smoked in Last 30 Days: No e-Cigarette/Vaping Use: Never Used Second Hand Smoke Exposure: No Use of substances other than those prescribed or required for medical reasons: No Advance Directives: No Advance Directives Information Provided: Yes Nutrition Risks: No Nutritional Risk service: No Current occupational status: retired Cognitive needs: No Hearing needs: No Vision needs: Yes <Ros Clark PA-C - Last Filed: 10/14/24 11:13> Meds Allergies/Adverse reactions: Allergies Allergy/AdvReac Type Severity Reaction Status Date / Time Influenza Virus Vaccines Allergy Severe arm Verified 10/13/24 12:06 swelling naproxen [From NAPROSYN] Allergy Severe GI PAIN Verified 10/13/24 12:06 oxycodone [OXYCODONE] Allergy Severe VOMITING Verified 10/13/24 12:06 sulfamethoxazole Allergy Severe FACIAL Verified 10/13/24 12:06 [From BACTRIM] SWELLING trimethoprim [From BACTRIM] Allergy Severe FACIAL Verified 10/13/24 12:06 SWELLING lisinopril [LISINOPRIL] Allergy Intermediate COUGH Verified 10/13/24 12:06 <EMERALD Haas Last Filed: 10/14/24 11:13> Active Medications: Current Medications Acetaminophen (Acetaminophen 325 Mg Tablet) 650 mg PO Q6H PRN PRN Reason: Pain, Mild (Pain Scale 1-3), fever or headache Atorvastatin Calcium (Atorvastatin Calcium 40 Mg Tablet) 40 mg PO DAILY [facility] Calcium Carbonate (Calcium Carbonate 750 Mg Tab.Chew) 750 mg PO Q4H PRN PRN Reason: Heartburn Ezetimibe (Ezetimibe 10 Mg Tablet) 10 mg PO DAILY [facility] Enoxaparin Sodium (Enoxaparin Sodium 40 Mg/0.4 Ml Syringe) 40 mg SUBCUT Q24H [facility] Last Admin: 10/13/24 22:54 Dose: 40 mg Fenofibrate (Fenofibrate 54 Mg Tablet) 54 mg PO DAILY [facility] Vancomycin HCl 1,500 mg/ (Sodium Chloride) 500 mls @ 333.333 mls/hr IV Q24H [facility] Levothyroxine Sodium (Levothyroxine Sodium 50 Mcg Tablet) 50 mcg PO QAM [facility] Magnesium Hydroxide (Milk Of Magnesia 30 Ml Oral.Susp) 30 ml PO DAILY PRN PRN Reason: Constipation Melatonin (Melatonin 3 Mg Tablet) 6 mg PO BEDTIME PRN PRN Reason: Insomnia Omeprazole (Omeprazole 40 Mg Capsule.Dr) 40 mg PO DAILY [facility] Ondansetron HCl (Ondansetron Hcl 4 Mg/2 Ml Vial) 4 mg IVPUSH Q8H PRN PRN Reason: Nausea and Vomiting Pharmacy Consult (Consult Rx Vancomycin Dosing) 1 each MISCELLANE DAILY PRN PRN Reason: Consult order Sodium Chloride (0.9 % Sodium Chloride Flush 3 Ml Syringe) [address] [facility] Last Admin: 10/14/24 00:36 Dose: 3 ml <EMERALD Haas Last Filed: 10/14/24 11:13> Home medications: Home Medications ?Medication ?Instructions ?Recorded ?Confirmed ?Last Taken ?Type cetirizine 10 mg tablet (Zyrtec) 20 mg PO BID 01/07/21 10/13/24 10/13/24 History linaclotide 72 mcg capsule 72 mcg PO DAILY PRN Constipation 10/13/24 10/13/24 Unknown History (Linzess) levothyroxine 50 mcg tablet 50 mcg PO DAILY@0600 10/14/24 10/14/24 10/13/24 History (Synthroid) omeprazole 40 mg capsule,delayed 40 mg PO DAILY@0630 10/14/24 10/14/24 10/13/24 History release <EMERALD Haas Last Filed: 10/14/24 11:13> Physical Exam 2 Vital Signs: Vital Signs: Last Vital Signs Temp 98.2 F 10/14/24 07:41 Pulse 61 10/14/24 07:41 Resp 18 10/14/24 07:41 BP 137/62 10/14/24 07:41 Pulse Ox 95 10/14/24 07:41 O2 Del Method Room Air 10/14/24 07:41 BMI result Body Mass Index 28.7 <EMERALD Haas Last Filed: 10/14/24 11:13> Const: General: comfortable, no acute distress and alert <EMERALD Haas Last Filed: 10/14/24 11:13> Orientation/consciousness: patient oriented x3 <EMERALD Haas Last Filed: 10/14/24 11:13> Resp: Effort & Inspection: normal respiratory effort <EMERALD Haas Last Filed: 10/14/24 11:13> Skin: General skin exam: no rashes or lesions noted <Ros Clark PA-C - Last Filed: 10/14/24 11:13> Neuro: General: patient oriented x3 and moves all extremities <EMERALD Haas Last Filed: 10/14/24 11:13> Extrem: Other: left anterior lower leg with open wound, overall clean appearing with some fibrinous exudate of inferior aspect with very mild surrounding erythema and edema <Ros Clark PA-C - Last Filed: 10/14/24 11:13> Results Labs Result diagrams: 10/14/24 06:25 10/14/24 06:25 <Ros Clark PA-C - Last Filed: 10/14/24 11:13> Labs: Abnormal lab results 10/13/24 10/14/24 Range/Units 12:22 06:25 WBC 15.6 H (4.8-10.8) X10*3/uL RBC 4.15 L (4.20-5.50) X10*6/uL Hgb 11.8 L (12.0-16.0) g/dl Hct 35.9 L (37.0-47.0) % Plt Count 529 H D 449 H (160-400) X10*3/uL Immature Gran % (Auto) 0.5 H (0.0-0.4) % Lymph % (Auto) 45.1 H (20-40) % Abs Immat Gran (auto) 0.08 H 0.04 H (0.00-0.03) X10*3/uL Absolute Neuts (auto) 10.3 H (2.0-8.3) x10*3/uL Carbon Dioxide 30 H (22-29) mmol/L Anion Gap 11 L (12-20) BUN 20 H 17 H (9-16) mg/dL Random Glucose 157 H (60-115) mg/dL Short CBC 10/13/24 10/14/24 Range/Units 12:22 06:25 WBC 15.6 H 10.7 (4.8-10.8) X10*3/uL Hgb 13.1 11.8 L (12.0-16.0) g/dl Hct 38.5 35.9 L (37.0-47.0) % Plt Count 529 H D 449 H (160-400) X10*3/uL BMP 10/13/24 10/14/24 12:22 06:25 Sodium 137 137 Potassium 3.8 3.6 Chloride 99 104 Carbon Dioxide 30 H 26 BUN 20 H 17 H Creatinine 0.96 0.84 Calcium 9.7 9.0 D Liver Function 10/13/24 Range/Units 12:22 Total Bilirubin 0.5 (0.0-1.0) mg/dL Direct Bilirubin 0.2 (0.0-0.5) mg/dL AST 14 (5-31) U/L ALT 16 (0-31) U/L Alkaline Phosphatase 90 (39-117) U/L Albumin 4.3 (3.5-5.0) g/dL All other labs normal. <Ros Clark PA-C - Last Filed: 10/14/24 11:13> Assessment and Plan (1) Cellulitis of left lower extremity: Status: Acute <Ros Clark PA-C - Last Filed: 10/14/24 11:13> Open with with fibrinous exudate noted on the anterior area of the lower leg on the left Okay to apply Santyl for now I will follow this closely to see if this will need some debridement Continue antibiotic treatment as well Discussed with patient Seen and examined independently <Omar Delgadillo MD - Last Filed: 10/14/24 14:59> 69 year old female with significant PMH of hypothyroidism, hypertension, hyperlipidemia, GERD who was admitted for left leg wound and surrounding cellulitis. Cellulitic changes are minimal. Overall wound is clean appearing with small amount of fibrinous exudate of the wound base without necrotic tissue/eschar. Will hold off on any surgical debridement. Recommend santyl to wound base followed by telfa, fluffs and kerlix wrap, change BID. Can eventually transition to silver alginate upon discharge. Recommend wound care clinic f/u outpatient. <Ros Clark PA-C - Last Filed: 10/14/24 11:13> Procedures Date of Service Date of Service: 10/14/24 <Ros Clark PA-C - Last Filed: 10/14/24 11:13> 10/14/24 <Hubert Long MD - Last Filed: 10/14/24 11:14> 10/14/24 <Omar Delgadillo MD - Last Filed: 10/14/24 14:59>
--- NOTE | 2024-10-14 10:05 | PHA.MEDREC ---
Addendum entered by Isatu Ritter RPh 10/14/24 10:28: Reviewed by [facility], [facility] Original Note: Pharmacy Consult ? Medication Reconciliation Pharmacy has reviewed the medication reconciliation done by nursing. Spoke to patient to confirm med list. Patient states she is no longer taking benzonate 100 mg, and Diclofenac sod Gel 1%. Patient received brand name Synthroid 50 mcg. When I asked patient if she need brand name she said she doesn't know.
[2024-10-14] MEDS: Ezetimibe 10 MG TABLET PO (10:06)
[2024-10-14] MEDS: Atorvastatin Calcium 40 MG TABLET PO (10:06)
[2024-10-14] MEDS: Fenofibrate 54 MG TABLET PO (10:06)
[2024-10-14] MEDS: Acetaminophen 325 MG TABLET 650 MG PO ×2 (10:09→22:30)
[2024-10-14] MEDS: Omeprazole 40 MG CAPSULE.DR PO (12:35)
[2024-10-14] MEDS: Levothyroxine Sodium 50 MCG TABLET PO (12:35)
[2024-10-14] MEDS: atenoloL 25 MG TABLET PO (13:14)
[2024-10-14] MEDS: Collagenase Clostridium Hist. 30 GM TUBE 1 APPL TOPICAL (13:33)
--- NOTE | 2024-10-14 13:34 | PC.NURSE ---
wound care done on left earl. Area with slough noted, no drainage, no odor. wound cleaned with NS, Nickel thick layer of santyl applied to wound surface. Covered with non-adherant dressing. Patient tolerated wound dressing well
--- NOTE | 2024-10-14 13:54 | HO.PM.IMPN ---
Subjective Subjective Date of Service: 10/14/24 Interval History: Seen and examined this morning Follow-up for left leg wound no fever some pain at area of wound Review of Systems Review of Systems: Yes all other systems are reviewed and are negative Constitutional Constitutional: Denies chills and Denies fever(s) Cardiovascular Cardiovascular: Denies chest pain, Denies palpitations and Denies dyspnea Respiratory Respiratory: Denies cough and Denies dyspnea Gastrointestinal Gastrointestinal: Denies abdominal pain, Denies nausea and Denies vomiting Endocrine Endocrine: Denies palpitations Physical Exam Vital Signs: Vital Signs: Last Vital Signs Temp 98.2 F 10/14/24 07:41 Pulse 61 10/14/24 07:41 Resp 18 10/14/24 07:41 BP 137/62 10/14/24 07:41 Pulse Ox 95 10/14/24 07:41 O2 Del Method Room Air 10/14/24 07:41 BMI result Body Mass Index 28.7 Const: General: cooperative, comfortable, well developed, alert and awake Nutritional Appearance: average body habitus Orientation/consciousness: patient oriented x3 Resp: Effort & Inspection: normal respiratory effort, able to speak in complete sentences, no respiratory distress and no use of accessory muscles Auscultation: clear to auscultation bilaterally Cardio: Rate: regular rate GI: Inspection: No distended Palpation (GI): Soft to palpation and nontender Skin: Other: left anterior earl, no fluctuance, no significant drainage Neuro: General: patient oriented x3, moves all extremities and CN's II-XI intact bilaterally Extrem: General: Yes no pedal edema Objective Data Active Medications Acetaminophen (Acetaminophen 325 Mg Tablet) 650 mg PO Q6H PRN PRN Reason: Pain, Mild (Pain Scale 1-3), fever or headache Last Admin: 10/14/24 10:09 Dose: 650 mg Documented By: AUBREY Atenolol (Atenolol 25 Mg Tablet) 25 mg PO DAILY [facility]; Protocol Last Admin: 10/14/24 13:14 Dose: 25 mg Documented By: MARLENI Atorvastatin Calcium (Atorvastatin Calcium 40 Mg Tablet) 40 mg PO DAILY [facility] Last Admin: 10/14/24 10:06 Dose: 40 mg Documented By: AUBREY Calcium Carbonate (Calcium Carbonate 750 Mg Tab.Chew) 750 mg PO Q4H PRN PRN Reason: Heartburn Collagenase (Collagenase Clostridium Hist. 30 Gm Tube) 1 appl TOPICAL BID [facility]; Protocol Last Admin: 10/14/24 13:33 Dose: 1 appl Documented By: MARLENI Ezetimibe (Ezetimibe 10 Mg Tablet) 10 mg PO DAILY [facility] Last Admin: 10/14/24 10:06 Dose: 10 mg Documented By: AUBREY Enoxaparin Sodium (Enoxaparin Sodium 40 Mg/0.4 Ml Syringe) 40 mg SUBCUT Q24H [facility] Last Admin: 10/13/24 22:54 Dose: 40 mg Documented By: VIVIAN Fenofibrate (Fenofibrate 54 Mg Tablet) 54 mg PO DAILY [facility] Last Admin: 10/14/24 10:06 Dose: 54 mg Documented By: AUBREY Vancomycin HCl 1,500 mg/ (Sodium Chloride) 500 mls @ 333.333 mls/hr IV Q24H [facility] Levothyroxine Sodium (Levothyroxine Sodium 50 Mcg Tablet) 50 mcg PO DAILY@0600 [facility] Last Admin: 10/14/24 12:35 Dose: 50 mcg Documented By: AUBREY Magnesium Hydroxide (Milk Of Magnesia 30 Ml Oral.Susp) 30 ml PO DAILY PRN PRN Reason: Constipation Melatonin (Melatonin 3 Mg Tablet) 6 mg PO BEDTIME PRN PRN Reason: Insomnia Omeprazole (Omeprazole 40 Mg Capsule.Dr) 40 mg PO DAILY [facility] Last Admin: 10/14/24 12:35 Dose: 40 mg Documented By: AUBREY Ondansetron HCl (Ondansetron Hcl 4 Mg/2 Ml Vial) 4 mg IVPUSH Q8H PRN PRN Reason: Nausea and Vomiting Pharmacy Consult (Consult Rx Vancomycin Dosing) 1 each MISCELLANE DAILY PRN PRN Reason: Consult order Sodium Chloride (0.9 % Sodium Chloride Flush 3 Ml Syringe) 3 ml IVFLUSH QSHIFT [facility] Last Admin: 10/14/24 10:07 Dose: 3 ml Documented By: AUBREY Labs 10/14/24 06:25 10/14/24 06:25 Labs: Laboratory Results - last 24 hr 10/13/24 10/14/24 12:22 06:25 MCV 86.5 MCH 28.4 MCHC 32.9 RDW 14.6 Plt Count 449 H MPV 9.9 Immature Gran % (Auto) 0.4 Neut % (Auto) 46.8 Lymph % (Auto) 45.1 H Cotton % (Auto) 5.2 Eos % (Auto) 2.1 Baso % (Auto) 0.4 Lymph # (Auto) 4.8 Cotton # (Auto) 0.6 Eos # (Auto) 0.2 Baso # (Auto) 0.0 Abs Immat Gran (auto) 0.04 H Absolute Neuts (auto) 5.0 Absolute Nucleated RBC 0.000 Nucleated RBC % (auto) 0.0 ESR 5 Anion Gap 11 L Estim Creat Clear Calc 55.3 Estimated GFR > 60 Random Glucose 98 Calcium 9.0 D C-Reactive Protein 0.12 Assessment and Plan (1) Cellulitis of left lower extremity: Status: Acute Plan This is a 69-year-old female with pertinent history of hypothyroidism, hypertension, mixed hyperlipidemia, gastroesophageal reflux disease who presents to the emergency department for concerns of leg infection. Left lower extremity purulent cellulitis: no evidence of sepsis. white count resolved no bone involvement on xray, ESR (5), CRP (0.12) both low continue IV vancomycin Seen by General surgery, no indication for debridement at this time santyl to wound base followed by telfa, fluffs and kerlix wrap, change BID. Can eventually transition to silver alginate upon discharge. Continue local wound care-recommend outpatient follow-up in Wound care clinic following discharge Blood cultures pending Mixed hyperlipidemia: On statin and Zetia, lofibra Hypertension: continue atenolol, norvasc hold HCTZ Hypothyroidism: continue Synthroid Gastroesophageal reflux disease: continue omeprazole DVT prophylaxis: Lovenox Full code Requires ongoing inpatient hospital stay for IV antibiotics (as above), which is not possible in a lesser acute setting. Quality Stroke Does the patient have a stroke diagnosis?: No VTE Prior VTE?: No VTE Risk Level:: Medical - moderate - high VTE Device Contraindication: Treatment Not Indicated VTE Drug Contraindication: N/A - Med Ordered
[2024-10-14 16:17] VITALS: BP 125/63; PULSE 62; RESP 16; TEMP 36.8; O2SAT 97
[2024-10-14] MEDS: vancomycin HCL 1,500 MG in 0.9 % Sodium Chloride 500 ML 333.33 MG IV (18:55)
[2024-10-14 20:06] VITALS: BP 133/61; PULSE 62; RESP 16; TEMP 36.9; O2SAT 96
[2024-10-14] MEDS: Enoxaparin Sodium 40 MG/0.4 ML SYRINGE SUBCUT (21:12)
--- NOTE | 2024-10-14 21:51 | PC.NURSE ---
Pamela unavailable in hospital, per pharmacist. Pt received application of medication earlier today around 13:00, per EMAR by previous RN. Hospitalist (Loi) notified.
[2024-10-14] MEDS: Calcium Carbonate 750 MG TAB.CHEW PO (22:30)
[2024-10-15 00:04] VITALS: BP 138/64; PULSE 64; RESP 16; TEMP 36.9; O2SAT 95
--- NOTE | 2024-10-15 01:40 | PC.NURSE ---
Patient sleeping, semi-wright's position. Respirations even/unlabored. No acute distress. Visible chest rise. Allowed to sleep. Care ongoing.
[2024-10-15 04:50] LABS: Estimated Glomerular Filt Rate > 60
[2024-10-15 05:49] VITALS: BP 124/65; PULSE 62; RESP 16; TEMP 36.6; O2SAT 97
--- NOTE | 2024-10-15 05:49 | PC.NURSE ---
Patient is resting comfortably, visible chest rise noted, sleeping at this time. No acute distress. Care ongoing.
[2024-10-15] MEDS: Levothyroxine Sodium 50 MCG TABLET PO (06:39)
[2024-10-15] MEDS: Acetaminophen 325 MG TABLET 650 MG PO (06:39)
[2024-10-15 08:06] VITALS: BP 124/65; PULSE 62
[2024-10-15] MEDS: 0.9 % Sodium Chloride Flush 3 ML SYRINGE IVFLUSH (08:06)
[2024-10-15] MEDS: atenoloL 25 MG TABLET PO (08:06)
[2024-10-15] MEDS: Omeprazole 40 MG CAPSULE.DR PO (08:06)
[2024-10-15] MEDS: Ezetimibe 10 MG TABLET PO (08:06)
[2024-10-15] MEDS: Fenofibrate 54 MG TABLET PO (08:06)
[2024-10-15] MEDS: amLODIPine Besylate 5 MG TABLET PO (08:06)
[2024-10-15] MEDS: Atorvastatin Calcium 40 MG TABLET PO (08:06)
--- NOTE | 2024-10-15 10:53 | P.DS_ITS ---
DS: Providers Provider Date of Service: 10/15/24 Date of admission: 10/13/24 22:17 Date of discharge: 10/15/24 Primary care physician: RALPH Obrien Consults: 10/13/24 22:56 Consult to General Surgery Routine Consulting Provider: [facility] General Surgeons Reason for consultation: left leg purulent cellulitis, may need debridement 10/14/24 11:24 Consult to Wound Care Routine Reason for consultation: left leg wound Attending physician on discharge: Umang Lockhart Discharging clinician: Nohemi Kendrick DS: Diagnosis Discharge Diagnosis (1) Cellulitis of left lower extremity: Status: Acute DS: Summary Hospital Course Hospital Course: From H&P on the day of admission This is a 69-year-old female with pertinent history of hypothyroidism, hypertension, mixed hyperlipidemia, gastroesophageal reflux disease who presents to the emergency department for concerns of leg infection. Patient was seen in the ER a month ago after she fell and had a skin tear on left lower extremity. Patient completed antibiotic course and states her leg was doing better and healing until 3 days prior to presentation when she noticed redness, swelling, pain and purulent drainage from the wound. Patient went to urgent care 3 days ago and was put on antibiotic and skin was debrided. Patient is been on p.o. antibiotics since 10/11 but states the infection has worsened with foul-smelling purulent drainage. No fever, chills, chest pain, palpitations, shortness of breath, abdominal pain, changes in urinary or bowel habits. In the emergency department, patient was initiated empiric IV antibiotics. WBC 15.6 Left lower extremity purulent cellulitis: no evidence of sepsis. white count resolved. no bone involvement on xray, ESR (5), CRP (0.12) both low. Treated with IV vancomycin. Blood cultures negative. Seen by General surgery, no indication for debridement - recommend silver alginate to wound base followed by telfa, fluffs and kerlix wrap, change BID. outpatient follow-up in Wound care clinic. Time Attestation Discharge Coordination Time (in mins): 36 Quality: Safe Use of Opioids Does Pt have an Active Cancer Diagnosis on the Problem List?: No Quality: Stroke Does the patient have a stroke diagnosis?: No Physical Exam Vital Signs: Vital Signs: Last Vital Signs Temp 97.8 F 10/15/24 05:49 Pulse 62 11/16/24 08:06 Resp 16 10/15/24 05:49 BP 124/65 10/15/24 08:06 Pulse Ox 97 10/15/24 05:49 O2 Del Method Room Air 10/15/24 05:49 BMI result Body Mass Index 28.7 Const: General: cooperative, comfortable, well developed, alert and awake Nutritional Appearance: average body habitus Orientation/consciousness: patient oriented x3 Resp: Effort & Inspection: normal respiratory effort, able to speak in complete sentences, no respiratory distress and no use of accessory muscles Auscultation: clear to auscultation bilaterally Cardio: Rate: regular rate GI: Inspection: No distended Palpation (GI): Soft to palpation and nontender Skin: Other: left anterior earl wound with erythema improving, no fluctuance Neuro: General: patient oriented x3, moves all extremities and CN's II-XI intact bilaterally Extrem: General: Yes no pedal edema DS: Data Data Completed and Pending Labs on day of discharge: Laboratory Results - last 24 hr 10/15/24 04:27 Creatinine 0.86 Estim Creat Clear Calc 54.0 Estimated GFR > 60 Preliminary micro results at discharge 10/13/24 12:22 Blood Culture - Preliminary Blood - Venous No growth after 24 hours. 10/13/24 12:22 Blood Culture - Preliminary Blood - Venous No growth after 24 hours. Discharge Plan Discharge Anticipated Discharge Date/Time: 10/15/24 11:37 Patient Disposition: Home, Self-Care Discharge Diagnosis: cellulitis of left lower leg Referrals: Vijay Bella FNP- [Primary Care Provider] - 1 Week Omar Delgadillo MD [Physician] - 1 Week Rahel Marquez MD [Physician] - 1 Week Discharge Medications: New doxycycline monohydrate 100 mg tablet 100 mg PO BID 7 Days Qty: 14 0RF silver-calcium alginate 4 1/4 X 4 1/4 bandage 1 ea topical DAILY Qty: 10 0RF Continued amlodipine 5 mg tablet 5 mg PO DAILY Qty: 90 3RF hydrochlorothiazide 25 mg tablet 25 mg PO DAILY Qty: 90 1RF fenofibrate 54 mg tablet 54 mg PO DAILY Qty: 90 1RF atenolol 25 mg tablet 25 mg PO DAILY 90 Days Qty: 90 1RF atorvastatin 40 mg tablet 40 mg PO DAILY Qty: 90 1RF ezetimibe 10 mg tablet 10 mg PO DAILY 90 Days Qty: 90 1RF potassium chloride 10 mEq tablet,ER particles/crystals 10 meq PO QPM Qty: 90 1RF Linzess 72 mcg capsule 72 mcg PO DAILY PRN (Reason: Constipation) omeprazole 40 mg capsule,delayed release(DR/EC) 40 mg PO DAILY@0630 levothyroxine [Synthroid] 50 mcg tablet 50 mcg PO DAILY@0600 cetirizine [Zyrtec] 10 mg tablet 20 mg PO BID cholecalciferol (vitamin D3) 50 mcg (2,000 unit) capsule 50 mcg PO DAILY 90 Days Qty: 90 2RF Discontinued cephalexin 500 mg capsule 500 mg PO QID Qty: 28 0RF Rx Instructions: End date 10/17/24 Discharge Orders: Discharge Order (Routine); Ordered 10/15/24 Ordered By: Nohemi Kendrick Activity on Discharge: As tolerated Stand Alone Forms: Patient Portal Discharge page Print Language: Yakut Care Plan Goals: see below Health Concerns: left leg cellulitis Plan of Treatment: Continue course of antibiotics as prescribed wound care: silver alignate to wound base followed by telfa, fluffs and kerlix wrap, change 1-2 times daily call to schedule a follow up appointment with either surgery or wound care clinic (both numbers provided above) vs alternative wound care clinic that urgent care referred you to Assessment: See discharge summary
[2024-10-15 12:08] VITALS: BP 126/71; PULSE 67; RESP 18; TEMP 36.7; O2SAT 97
== END 2024-10-15 12:04 | disposition home or self-care (01) | DRG 603 ==
LOC: HO.ED 21:59 → HO.EDOVER 22:31
PROVIDERS: Physician Assistant; Admitting Provider Student in an Organized Health Care Education/Training Program; Emergency Provider Emergency Medicine; PCP Nurse Practitioner Family; Visit Provider Physician Assistant Medical
DX: L03.116 Cellulitis of left lower limb (principal); E78.2 Mixed hyperlipidemia; K21.9 Gastro-esophageal reflux disease without esophagitis; I10 Essential (primary) hypertension; E03.9 Hypothyroidism, unspecified; Z87.891 Personal history of nicotine dependence; Z79.890 Hormone replacement therapy; Z79.899 Other long term (current) drug therapy
CPT/HCPCS: 36415; 73590; 80048; 80076; 82565; 83605; 85025; 85652; 86140; 87040; 99285; J1650; J2543; J3371

== ENCOUNTER → 2024-10-13 22:17 | Outpatient (BNV) | payer MEDICARE, SELFPAY | PROVIDERS: Admitting Provider Student in an Organized Health Care Education/Training Program; Emergency Provider Emergency Medicine; PCP Nurse Practitioner Family; Visit Provider Student in an Organized Health Care Education/Training Program | DX: L03.116 Cellulitis of left lower limb (principal) | CPT/HCPCS: 99222; 99232; 99239 ==

== ENCOUNTER → 2024-10-13 22:17 | Outpatient (BNV) | payer MEDICARE, SELFPAY | PROVIDERS: Admitting Provider Student in an Organized Health Care Education/Training Program; Emergency Provider Emergency Medicine; PCP Nurse Practitioner Family; Visit Provider Physician Assistant Surgical | DX: L03.116 Cellulitis of left lower limb (principal) | CPT/HCPCS: 99222 ==

== ENCOUNTER 2024-12-08 09:36 | Outpatient (REF) | payer MEDICARE, SELFPAY | END 2024-12-08 09:37 | disposition home or self-care (01) | LOC: HO.MAMMO 09:36 | PROVIDERS: PCP Nurse Practitioner Family; Visit Provider Nurse Practitioner Family | DX: Z12.31 Encounter for screening mammogram for malignant neoplasm of breast (principal) | CPT/HCPCS: 77063; 77067 ==

== ENCOUNTER → 2024-12-08 10:00 | Outpatient (BNV) | payer MEDICARE, SELFPAY | PROVIDERS: PCP Nurse Practitioner Family; Visit Provider Internal Medicine | DX: Z12.31 Encounter for screening mammogram for malignant neoplasm of breast (principal) | CPT/HCPCS: 77063; 77067 ==

== ENCOUNTER 2025-02-15 08:41 | Outpatient (REF) | payer MEDICARE, SELFPAY ==
[2025-02-15 10:19] LABS: MANUAL DIFF FLAG NO
[2025-02-15 10:36] LABS: Basophils Absolute Auto 0.1 X10*3/uL (0.0-0.2); Basophils Percent Auto 0.5 % (0-2); Eosinophils Absolute Auto 0.2 X10*3/uL (0.0-0.4); Eosinophils Percent Auto 1.8 % (0-4); Hematocrit 37.8 % (37.0-47.0); Hemoglobin 12.8 g/dl (12.0-16.0); Imm Gran Abs Auto 0.03 X10*3/uL (0.00-0.03); Imm Gran Pct Auto 0.3 % (0.0-0.4); Lymphocytes Absolute Auto 4.3 X10*3/uL (1.2-4.9); Lymphocytes Percent Auto 45.6 % (20-40); Mean Corpuscular HGB Conc 33.9 g/dl (31.0-35.0); Mean Corpuscular Hemoglobin 27.4 pg (27.0-33.0); Mean Corpuscular Volume 80.8 fL (80.0-98.0); Mean Platelet Volume 9.6 fL (9.4-12.3); Monocytes Absolute Auto 0.6 X10*3/uL (0.1-1.2); Monocytes Percent Auto 6.6 % (2-11); Neutrophils Absolute Auto 4.3 x10*3/uL (2.0-8.3); Neutrophils Percent Auto 45.2 % (45-73); Platelet Count 542 X10*3/uL (160-400); Red Blood Count 4.68 X10*6/uL (4.20-5.50); Red Cell Distribution Width 14.7 % (11.0-16.0); White Blood Count 9.4 X10*3/uL (4.8-10.8)
[2025-02-15 10:58] LABS: Alanine Aminotransferase 13 U/L (0-31); Albumin Level 3.8 g/dL (3.5-5.0); Alkaline Phosphatase 101 U/L (39-117); Anion Gap 11 (12-20); Aspartate Amino Transferase 12 U/L (5-31); Bilirubin Total 0.6 mg/dL (0.0-1.0); Blood Urea Nitrogen 16 mg/dL (9-16); Calcium 9.6 mg/dL (8.4-10.2); Carbon Dioxide 30 mmol/L (22-29); Chloride 100 mmol/L (96-108); Cholesterol 179 mg/dL (<200); Estimated Glomerular Filt Rate > 60; Glucose Fasting 112 mg/dL (60-99); HDL Cholesterol 63 mg/dL (>40); LDL Cholesterol Calculated 95 mg/dL (<100); Potassium 3.4 mmol/L (3.3-5.1); Sodium 138 mmol/L (135-145); Total Protein 7.2 g/dL (6.5-8.0); Triglycerides 109 mg/dL (<150)
[2025-02-15 11:10] LABS: Appearance Urine Clear; Color Urine Dark Yellow; Glucose Urine UA Negative (Negative); Leukocyte Esterase Urine Trace (Negative); Nitrite Urine Negative (Negative); PH 7.5 (5.0-9.0); UMIC TRIGGER UACC YES; Urine Blood Negative (Negative); Urine Ketones Trace mg/dL (Negative); Urine Protein Trace mg/dL (Neg-Trace)
[2025-02-15 11:11] LABS: TSH reflex Free T4 2.14 uIU/mL (0.32-4.0); Vitamin D 25-OH Total 62.5 ng/mL (>30)
[2025-02-15 11:19] LABS: Bacteria Urine None Seen (None Seen); Hyaline Casts Urine 0-2 /LPF (0-2); RBC Urine 0-2 /HPF (0-2); WBC Urine 0-5 /HPF (0-5)
== END 2025-02-15 08:42 | disposition home or self-care (01) ==
LOC: HO.10HDL 08:41
PROVIDERS: Visit Provider Nurse Practitioner Family
DX: I10 Essential (primary) hypertension (principal); E55.9 Vitamin D deficiency, unspecified
CPT/HCPCS: 36415; 80053; 80061; 81001; 81003; 82306; 84443; 85025

== ENCOUNTER 2025-02-28 10:04 | Outpatient (AMB) | payer MEDICARE, SELFPAY ==
--- NOTE | 2025-02-28 10:13 | A.OFFPC_ITS ---
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 Accompanied by: Self / Same As Patient Allergies Influenza Virus Vaccines Allergy (Severe, Verified 02/28/25 11:04) arm swelling naproxen [From NAPROSYN] Allergy (Severe, Verified 02/28/25 11:04) GI PAIN oxycodone [OXYCODONE] Allergy (Severe, Verified 02/28/25 11:04) VOMITING sulfamethoxazole [From BACTRIM] Allergy (Severe, Verified 02/28/25 11:04) FACIAL SWELLING trimethoprim [From BACTRIM] Allergy (Severe, Verified 02/28/25 11:04) FACIAL SWELLING lisinopril [LISINOPRIL] Allergy (Intermediate, Verified 02/28/25 11:04) COUGH Medication List - Last Reconciled 02/28/25 by GUERITA LeoneP- amlodipine 5 mg PO DAILY atenolol 25 mg PO DAILY 90 days atorvastatin 40 mg PO DAILY cephalexin 500 mg PO Q12H 5 days cetirizine (Zyrtec) 20 mg PO BID cholecalciferol (vitamin D3) 50 mcg PO DAILY 90 days ezetimibe 10 mg PO DAILY 90 days fenofibrate 54 mg PO DAILY hydrochlorothiazide 25 mg PO DAILY levothyroxine (Synthroid) 50 mcg PO QAM linaclotide (Linzess) 72 mcg PO DAILY PRN omeprazole 40 mg PO DAILY@0630 potassium chloride ER 10 mEq PO QPM silver-calcium alginate 4 1/4 X 4 1/4 1 ea topical DAILY Tobacco use date assessed: 02/28/25 Fall risk assessment: No Falls in past year Last assessed Fall Risk: 02/28/25 Dental Screening Dental Screen Date: 02/28/25 Did you have a dental visit in the last 12 months?: Yes Did you have a dental problem in the last 6 months where you did not have access to dental care?: No Was dental information given to patient?: Patient has dentist HPI PE HPI Details History of Present Illness The patient is a 69-year-old female presenting for a physical examination. She has a history of chronic sinusitis, for which she takes Zyrtec 20 mg twice daily. Her colon screening and mammograms are current. She experiences intermittent constipation but denies any gastrointestinal bleeding or ongoing diarrhea. The patient also denies urinary or psychiatric concerns and reports no significant psychiatric history. Health Maintenance - Colon screening up to date - Mammogram up to date Social History Review of Systems - Gastrointestinal: Denies blood in stoo l, ongoing diarrhea - Constitutional: Denies fever, chills - Genitourinary: Denies any urinary issu es - Psychiatric: Denies anxiety, depressio n, suicidal ideation, homicidal ideation Physical Exam General: Cooperative, healthy appearing, comfortable, no acute distress and well developed Orientation: Patient oriented x3 Limitations: No limitations Head: Normal to inspection Ears: Hearing grossly normal bilaterally Nose: Normal external nose present Face and sinus: Frequent sinusitis noted Eyes: Appearance normal, both eyes and all related structures Neck: Normal visual inspection and Yes full ROM Respiratory: Normal respiratory effort and able to speak in complete sentences. Clear to auscultation bilaterally Cardiovascular: Regular rate and rhythm. Normal S1 and S2 GI: Normal to inspection. Soft to palpation and nontender. Intermittent constipation noted Skin: No rashes or lesions noted Neuro: Patient oriented x3 Extremities: Normal to inspection Results Plan The patient's chronic sinusitis will continue to be managed with Zyrtec, 20 mg twice daily. She has opted not to pursue further funeral car chauffeur consultations. Intermittent constipation does not require additional intervention at this time. Preventive screenings are current. Since the patient reports no psychiatric sym ptoms, no further evaluation is necessary. Discussion Notes The management plan for chronic sinusitis involves maintaining the current Zyrtec regimen. I discussed the decision against additional funeral car chauffeur consultations based on the patient's comfort and understanding of her treatment options. We reviewed the importance of staying up to date with preventive screenings, and I confirmed her colon and mammogram screenings are current. No psychiatric symptoms were reported, so no further action is discussed in this area. Patient Instructions - Continue taking Zyrtec 20 mg in the mo rning and 20 mg at night as prescribed. - Monitor symptoms of sinusitis and cons tipation; report any significant changes. - Ensure colon and mammogram screenings remain up to date. - Contact if any new symptoms develop or current symptoms worsen. [facility] Medical History Arthritis Elevated platelet count GERD (gastroesophageal reflux disease) Allergic rhinitis Elevated cholesterol Vitamin D deficiency Hypothyroid Osteoporosis HTN (hypertension) Surgical History S/P right cataract extraction History of excision of pilonidal cyst Hx of arthroscopic knee surgery H/O colonoscopy History of left knee replacement History of shoulder surgery History of section Family History Father Emphysema, unspecified Mother No problems noted. Paternal Aunt Pancreatic cancer Maternal Grandmother Pancreatic cancer Paternal Aunt Stroke Paternal Uncle Stroke Heart disease Social History Household Members: Spouse Housing: House Are you a primary manager critical care to a significant other at home: No Do you presently have visiting nurse or other home services: No Alcohol intake: current Alcohol intake frequency: holidays/special occasions only Alcohol type: wine Comment: Tylenol given Patient Tobacco Use Status: Former Tobacco user Tobacco use type: Cigarette Cigarette Packs Per Day: 1 e-Cigarette/Vaping Use: Never Used Second Hand Smoke Exposure: No service: No Current occupational status: retired Cognitive needs: No Hearing needs: No Vision needs: Yes Questionnaire PHQ-9 Over the last 2 weeks, how often have you been bothered by any of the following problems? 1. Little interest or pleasure in doing things: not at all 2. Feeling down, depressed, or hopeless: not at all 3. Trouble falling or staying asleep, or sleeping too much: not at all 4. Feeling tired or having little energy: not at all 5. Poor appetite or overeating: not at all 6. Feeling bad about yourself - or that you are a failure or have let yourself or your family down: not at all 7. Trouble concentrating on things, such as reading the newspaper or watching television: not at all 8. Moving or speaking so slowly that other people could have noticed. Or the opposite - being so fidgety or restless that you have been moving around a lot more than usual: not at all 9. Thoughts that you would be better off or of hurting yourself in some way: not at all Total score: 0 Depression Screening Interpretation: Negative Depression Screening Done: Yes 70337 - PHQ-9 Billing: Yes Source: Developed by Drs. Rogelio Oh, Dayanna Redmond, Tommy Fregoso and colleagues, with an educational shay from [employer]. Thrive Questionnaire Date Thrive assessed: 02/28/25 I am a: Patient What is your living situation today?: I choose not to answer this question Within the past 12 months, did the food you bought not last and you didn't have the money to get more?: I choose not to answer this question Within the past 12 months, did you worry whether your food would run out before you got money to buy more?: I choose not to answer this question Do you have trouble paying for medicines?: I choose not to answer this question Do you have trouble getting transportation to medical appointments?: I choose not to answer this question Do you have trouble paying your heating and electricity bill?: I choose not to answer this question Do you have trouble taking care of your child, family member or friend?: I choose not to answer this question Are you currently unemployed and looking for a job?: I choose not to answer this question Are you interested in more education?: I choose not to answer this question Please select the resources that you would like help with: None Currently or been in a relationship where the following occur: I choose not to answer THRIVE Score: 0 AUDIT C Alcohol Use Questionnaire (AUDIT-C) 1. How often do you have a drink containing alcohol?: Monthly or less 2. How many drinks containing alcohol do you have on a typical day when you are drinking?: 1 or 2 3. How often do you have six or more drinks on one occasion?: Never Total Score: 1 Score Reviewed/Action Taken: Yes ONIEL-7 AMB Questionnaire ONIEL-7 Date ONIEL - 7 assessed: 02/28/25 Feeling nervous, anxious, or on edge: 0 = Not at all Not being able to stop or control worryin = Not at all Worrying too much about different things: 0 = Not at all Trouble relaxin = Not at all Being so restless that it is hard to sit still: 0 = Not at all Becoming easily annoyed or irritable: 0 = Not at all Feeling afraid as if something awful might happen: 0 = Not at all Total ONIEL-7 score (0-4 normal; 5-9 mild; 10-14 moderate; 15-21 severe): 0 Source: Developed by Drs. Rogelio Oh, Dayanna Redmond, Tommy Fregoso and colleagues, with an educational shay from [employer]. ONIEL-7 Assessment Billing ONIEL-7 Assessment Tool: ONIEL-7 Assessment 64445 Physical exam (Primary Care) Vital Signs: Last Vital Signs Pulse 68 02/28/25 10:14 BP 122/70 02/28/25 10:14 Pulse Ox 97 02/28/25 10:14 BMI result Body Mass Index 30.0 Tobacco/Smoking Status: Tobacco use Status Tobacco use date assessed 02/28/25 02/28/25 10:16 Patient Tobacco Use Status Former Tobacco user 02/28/25 10:16 Tobacco use type Cigarette 02/28/25 10:16 e-Cigarette/Vaping Use Never Used 02/28/25 10:16 PHQ-9: PHQ-9 Score PHQ-9: Total score 0 02/28/25 10:16 Depression Screening Interpretation: Negative Thrive Assessment: Date of Thrive Assessment Date Thrive assessed 02/28/25 02/28/25 10:16 Currently or been in a relationship where the following occur: I choose not to answer Coding Level of Care Code Est Pt Prev Care >65y(31304) Diagnoses Physical exam Z00.00 Chronic sinusitis J32.9 Additional Codes ONIEL-7 Assessment Billing - ONIEL-7 Assessment Tool: ONIEL-7 Assessment 74872 ([id number]) PHQ-9 - 29456 - PHQ-9 Billing: Yes ([id number]) Assessment & Plan Assessment & Plan (1) Physical exam: Code(s): Z00.00 - Encounter for general adult medical examination without abnormal findings Category: Medical (2) Chronic sinusitis: Code(s): J32.9 - Chronic sinusitis, unspecified Category: Medical Plan . Medications: Refilled cephalexin 500 mg PO Q12H 5 days 10 caps 1RF
[2025-02-28 10:14] VITALS: BP 122/70; PULSE 68; O2SAT 97
--- OUTSIDE RECORDS SUMMARY | 2025-02-28 11:44 | XMS_ITS | Data Portability ---
Author Organization [facility], [facility] Address [address] [place] [address] Care Team Providers Care General House Worker Name Role Phone NOEMY GONSALES Primary Care Provider [phone] Assessment Encounter Date Assessment Date Assessment LastModified by Organization Details LastModified Time 04/14/2024 04/14/2024 Patient seen und er general supervision of Dr. Rodriguez who was available but who did not see the patient. HPI: 69-year-old female seen today for follow-up regarding bilateral shoulder rotator cuff arthropathy. Patient well-known to our practice. Has been suffering from difficulty for quite some time, is perceiving occasional corticosteroid injections with reasonable relief. Patient reported having increasing pain primarily about the left. States she is currently moving as been doing painting which she believes is exacerbated. Denies numbness or tingling bilateral upper extremities. Examination: 69-year-old female known to distress alert and oriented. On examination bilateral shoulders no ecchymosis or erythema or warmth are noted. Good range of motion with mild stiffness with full forward flexion on the right appreciated. Irritability with resistive rotator cuff testing. No gross instability. Bilateral upper extremities neurovascularly intact. Impression: Bilateral shoulder rotator cuff arthropathy Plan: Treatment options are reviewed. Role of surgical intervention as well as that of continued conservative management with corticosteroid injections discussed. Patient is fared well with previous injections therefore selected to proceed with repeat today. Injections are performed, patient tolerated procedure well. Postinjection per cautions are reviewed. Follow-up on a p.r.n. basis. [facility] speech recognition milk receiver tank truck software was used to create portions of this document. An attempt at proofreading has been made to minimize errors. Please call for corrections. [email or web address] Not available 04/14/2024 09:02:46 07/28/2024 07/28/2024 Patient seen und er general supervision of Dr. Rodriguez who was available but who did not see the patient. HPI: 69-year-old female seen today regarding her bilateral shoulder pain with left being greater than right. Patient with known rotator cuff arthropathies. Has undergone previous SADDCE right shoulder with Dr. Barrett. Reports that recent injections have not provided much relief for the left shoulder. Is not currently having any pain on the right. Denies any recent falls or trauma. Examination: 69-year-old female no acute distress alert and oriented. Examination of left shoulder ecchymosis or erythema or warmth noted. Patient is noted irritability with overhead maneuvers weakness and irritability with resistive testing of the supraspinatus appreciated. No gross instability noted. Examination the right shoulder reveals full range of motion with mild overhead irritability. No gross instability. Bilateral upper extremities neurovascularly intact. X-rays ordered, obtained and reviewed at [facility] 4 views of bilateral shoulders reveal no evidence of acute fracture or dislocation. Spurring about the left acromion noted. Mild a.c. joint arthrosis. Right shoulder reveals mild superior migration of the humeral head. Previous SADDCE noted. Impression: Bilateral shoulder rotator cuff arthropathy Plan: Treatment options are discussed. At this time right shoulder minimally symptomatic therefore not recommend proceeding with any type of intervention. With the left shoulder not responding to corticosteroid injections and pain becoming worse as well as degree of weakness we will obtain an MRI to further evaluate. Patient will follow up with Dr. Barrett thereafter discussed role of SADDCE versus rotator cuff repair depending on MRI findings. Follow up sooner if further difficulties. [facility] speech recognition milk receiver tank truck software was used to create portions of this document. An attempt at proofreading has been made to minimize errors. Please call for corrections. [email or web address] Not available 07/28/2024 10:25:34 09/29/2024 09/29/2024 HPI: 69-year-old female seen today regarding her bilateral shoulder pain with left being greater than right. Patient with known rotator cuff arthropathies. Has undergone previous SADDCE right shoulder. Reports that recent injections have not provided much relief for the left shoulder. Is not currently having any pain on the right. Denies any recent falls or trauma. Past medical, social, surgical history reviewed the patient and updated on the intake form that is scanned into the medical record Examination: 69-year-old female no acute distress alert and oriented. Examination of left shoulder ecchymosis or erythema or warmth noted. Patient is noted irritability with overhead maneuvers weakness and irritability with resistive testing of the supraspinatus appreciated. No gross instability noted. Examination the right shoulder reveals full range of motion with mild overhead irritability. No gross instability. Bilateral upper extremities neurovascularly intact. HEENT- unremarkable Heart -RRR without murmur's, rubs, gallops Abdomen- soft non-tender, non distended, positive bowel signs Lungs clear bilalterally no skin lesions intact light touch, distal pulses, and reflex X-rays ordered, obtained and reviewed at [facility] 4 views of bilateral shoulders reveal no evidence of acute fracture or dislocation. Spurring about the left acromion noted. Mild a.c. joint arthrosis. Right shoulder reveals mild superior migration of the humeral head. Previous SADDCE noted. MRI Left shoulder 09/26/2024 independently reviewed 1. Partialthickness tear involving the confluence of the infraspinatus and supraspinatus as above. 2. Notably has severe edema of the infraspinatus muscle belly well away from the tendon attachment site. 3. Mild tendinopathy of subscapularis and tendinopathy of the intra-articular biceps. 4. Mild to moderate glenohumeral and mild acromioclavicular degenerative change. Impression: Symptomatic left greater than right shoulder pain. Recent MRI scan doccuments Partial-thickness rotator cuff tear on the left. Interestingly has significant edema of the muscle belly of the infraspinatus tendon. Unclear etiology. Could be related to calcific tendinopathy. There is no repair that would be amenable or available to us in that location. Patient is hoping to manage tthis conservatively. Recommended repeat corticosteroid injection which has been helpful in the past. Recheck every 3-6 months as necessary. Ultimately may benefit from a left-sided SAD/DCE which is been of some benefit on the right. [email or web address] Not available 09/29/2024 11:38:36 01/05/2025 01/05/2025 Patient seen und er general supervision of Dr. Rodriguez who was available but who did not see the patient. HPI: 69-year-old female seen today for follow-up regarding left shoulder rotator cuff arthropathy. Patient last seen by Dr. Barrett. Has been receiving occasional injections with reasonable relief. Denies any new injuries to the shoulder. Patient does however report she has had a new injury to the left knee, status post total knee arthroplasty. States she had a fall while going up her stairs a couple of months ago. Had noted some swelling about the anterior aspect of the knee and has some discomfort. Patient has been able to ambulate, she has been using topical anti-inflammatories as well as xolu-[id number]-gbplrax pain relievers without significant improvement. Denies numbness or tingling left lower extremity. Examination: 69-year-old female distress. Examination of shoulder no ecchymosis or erythema or warmth, full motion. Irritability with resistive testing the rotator cuff. No gross instability. Examination of the left knee reveals well-healed midline surgical incision, patient has mild swelling about the pes anserine bursa with tenderness noted. Good motion of the knee 0-120? ? ? without significant difficulty, no instability noted. Calf is soft and nontender. X-rays ordered, obtained and reviewed at [facility] 4 views of the left knee reveal well fixed cemented total knee arthroplasty, no evidence of periprosthetic fracture, wear or loosening noted. Impression: Recurrent rotator cuff arthropathy left shoulder as well as pes anserine bursitis left knee Plan: Treatment options are discussed. This time patient offered repeat injection for the shoulder which she accepted was performed today. Have discussed possible injection for the knee. Patient's accepted such, injection performed at the pes anserine bursa. Patient was nauseous does with both. Follow-up concerning these matters and a p.r.n. basis. Falls precaution regarding her TKA discussed. [facility] speech recognition milk receiver tank truck software was used to create portions of this document. An attempt at proofreading has been made to minimize errors. Please call for corrections. [email or web address] Not available 01/05/2025 10:57:22 Plan of Treatment Reminders Order Date Submit Date Provider Last Modified By Organization Details Last Modified Time Details Appointments None recorded. Lab None recorded. Referral None recorded. Procedures None recorded. Surgeries None recorded. Imaging XR, knee, 4 or more view - room 121 4V L knee 2024 025 [facility], [address], [place], [address], 5 09:36:43 XR, shoulder, 2 or more view - room 120 4V isaak shoulders 2023 024 [email or web address] [facility], [address], [address], [place], [address], 4 09:00:34 MRI, shoulder, w/o contrast - MRI L shoulder r/o RCT 2023 024 [facility] ([facility]), [address], [place], [address], 4 05:18:01 XR, knee, 3 view - mo left tka pain new problem 314 2023 024 alanna Not available 4 07:48:23 XR, knee, 4 or more view - 4v rt knee new problem 314 2023 024 alanna [facility], [address], [address], [place], [address], 4 07:48:23 Medication Orders None recorded. Patient TargetsNo targets recorded. Patient InstructionsNo instructions recorded. Reason for Referral None Reported. Results Created Date Observation Date Name Description Value Unit Range Abnormal Flag Note LastModifiedBy Organization Detail LastModifiedTime 02/18/20 24 02/19/2024 CBC WITH DIFFE RENTI AL/PL ATELE T WBC 9.5 x10e3 /uL 3.4-10 .8 Not Available [facility] ([facility]) [address] [place], [address], 02/19/2024 08:09:07 02/18/20 24 02/19/2024 CBC WITH DIFFE RENTI AL/PL ATELE T RBC 4.68 x10e6 /uL 3.77-5 .28 Not Available [facility] ([facility]) [address] [facility], [place], [address], 02/19/2024 08:09:07 02/18/20 24 02/19/2024 CBC WITH DIFFE RENTI AL/PL ATELE T hemoglobin 13.9 g/dL 11.1-1 5.9 Not Available [facility] ([facility]) [address] [facility], [place], [address], 02/19/2024 08:09:07 02/18/20 24 02/19/2024 CBC WITH DIFFE RENTI AL/PL ATELE T hematocrit 41.3 % 34.0-4 6.6 Not Available [facility] ([facility]) [address] [facility], [place], [address], 02/19/2024 08:09:07 02/18/20 24 02/19/2024 CBC WITH DIFFE RENTI AL/PL ATELE T MCV 88 fL 79-97 Not Available [facility] ([facility]) [address] [facility], [place], [address], 02/19/2024 08:09:07 02/18/20 24 02/19/2024 CBC WITH DIFFE RENTI AL/PL ATELE T MCH 29.7 pg 26.6-3 3.0 Not Available [facility] ([facility]) [address] [place], [address], 02/19/2024 08:09:07 02/18/20 24 02/19/2024 CBC WITH DIFFE RENTI AL/PL ATELE T MCHC 33.7 g/dL 31.5-3 5.7 Not Available [facility] ([facility]) [address] [place], [address], 02/19/2024 08:09:07 02/18/20 24 02/19/2024 CBC WITH DIFFE RENTI AL/PL ATELE T RDW 12.9 % 11.7-1 5.4 Not Available [facility] ([facility]) [address] [place], [address], 02/19/2024 08:09:07 02/18/20 24 02/19/2024 CBC WITH DIFFE RENTI AL/PL ATELE T platelets 436 x10e3 /uL 150-45 0 Not Available [facility] ([facility]) [address] [facility], [place], [address], 02/19/2024 08:09:07 02/18/20 24 02/19/2024 CBC WITH DIFFE RENTI AL/PL ATELE T neutrophils 53 % not estab. Not Available [facility] ([facility]) [address] [facility], [place], [address], 02/19/2024 08:09:07 02/18/20 24 02/19/2024 CBC WITH DIFFE RENTI AL/PL ATELE T lymphs 38 % not estab. Not Available [facility] ([facility]) [address] [facility], [place], [address], 02/19/2024 08:09:07 02/18/20 24 02/19/2024 CBC WITH DIFFE RENTI AL/PL ATELE T monocytes 8 % not estab. Not Available [facility] ([facility]) [address] [facility], [place], [address], 02/19/2024 08:09:07 02/18/20 24 02/19/2024 CBC WITH DIFFE RENTI AL/PL ATELE T eos 1 % not estab. Not Available [facility] ([facility]) [address] [facility], [place], [address], 02/19/2024 08:09:07 02/18/20 24 02/19/2024 CBC WITH DIFFE RENTI AL/PL ATELE T basos 0 % not estab. Not Available [facility] ([facility]) [address] [facility], [place], [address], 02/19/2024 08:09:07 02/18/20 24 02/19/2024 CBC WITH DIFFE RENTI AL/PL ATELE T immature cells CRYPTOLOGIC TECHNICIAN OPERATOR/ANALYST Not Available [facility] ([facility]) [address] [place], [address], 02/19/2024 08:09:07 02/18/20 24 02/19/2024 CBC WITH DIFFE RENTI AL/PL ATELE T neutrophils (absolute) 5.0 x10e3 /uL 1.4-7. 0 Not Available [facility] ([facility]) [address] [place], [address], 02/19/2024 08:09:07 02/18/20 24 02/19/2024 CBC WITH DIFFE RENTI AL/PL ATELE T lymphs (absolute) 3.6 x10e3 /uL 0.7-3. 1 above high normal Not Available [facility] ([facility]) [address] [place], [address], 02/19/2024 08:09:07 02/18/20 24 02/19/2024 CBC WITH DIFFE RENTI AL/PL ATELE T monocytes(ab solute) 0.7 x10e3 /uL 0.1-0. 9 Not Available [facility] ([facility]) [address] [place], [address], 02/19/2024 08:09:07 02/18/20 24 02/19/2024 CBC WITH DIFFE RENTI AL/PL ATELE T eos (absolute) 0.1 x10e3 /uL 0.0-0. 4 Not Available [facility] ([facility]) [address] [place], [address], 02/19/2024 08:09:07 02/18/20 24 02/19/2024 CBC WITH DIFFE RENTI AL/PL ATELE T baso (absolute) 0.0 x10e3 /uL 0.0-0. 2 Not Available [facility] ([facility]) [address] [place], [address], 02/19/2024 08:09:07 02/18/20 24 02/19/2024 CBC WITH DIFFE RENTI AL/PL ATELE T immature granulocytes 0 % not estab. Not Available [facility] ([facility]) [address] [facility], [place], [address], 02/19/2024 08:09:07 02/18/20 24 02/19/2024 CBC WITH DIFFE RENTI AL/PL ATELE T immature grans (abs) 0.0 x10e3 /uL 0.0-0. 1 Not Available [facility] ([facility]) [address] [facility], [place], [address], 02/19/2024 08:09:07 02/18/20 24 02/19/2024 CBC WITH DIFFE RENTI AL/PL ATELE T NRBC CRYPTOLOGIC TECHNICIAN OPERATOR/ANALYST Not Available [facility] ([facility]) [address] [facility], [place], [address], 02/19/2024 08:09:07 02/18/20 24 02/19/2024 CBC WITH DIFFE RENTI AL/PL ATELE T hematology comments: CRYPTOLOGIC TECHNICIAN OPERATOR/ANALYST Not Available [facility] ([facility]) [address] [facility], [place], [address], 02/19/2024 08:09:07 02/18/20 24 02/19/2024 SEDIM ENTAT ION RATE- WESTE RGREN sedimentatio n rate-westerg emma 2 mm/HR 0-40 Not Available [facility] ([facility]) [address] [facility], [place], [address], 02/19/2024 08:09:07 02/18/20 24 02/19/2024 C-ALMAS CTIVE PROTE IN, QUANT C-reactive protein, quant <1 mg/L 0-10 Not Available [facility] ([facility]) [address] [facility], [place], [address], 02/19/2024 08:09:08 07/28/20 24 07/28/2024 XR, shoul tesha, 2 or more view [email or web address] ?Encry pted=s hAaTro YD8dLq bEUv6g %2BXZw aYqtaq 0bqfl% 2Fg9IQ a4ajBk vP9nXo QUaueC m3YtLR FvZlg JJ8mAn HZtai3 3q9820 AC0Krb 36GUqX eUC8mr 84%3D INTERFACE [facility] [address], [place], [address], 07/28/2024 10:14:06 07/28/20 24 07/28/2024 XR, shoul tesha, 2 or more view [email or web address] ?Encry pted=s hAaTro YD8dLq bEUv6g %2BXZw aYqtaq 0bqfl% 2Fg9IQ a4ajBk vP9nXo QUaueC m3YtLR FvZlg JJ8mAn HZtai3 9s4115 AC0Krb 36GUqX eUC8mr 84%3D INTERFACE [facility] [address], [place], [address], 07/28/2024 10:14:09 07/28/20 24 07/28/2024 XR, shoul tesha, 2 or more view [email or web address] ?Encry pted=s hAaTro YD8dLq bEUv6g %2BXZw aYqtaq 0bqfl% 2Fg9IQ a4ajBk vP9nXo QUaueC m3YtLR FvZlgJ JJ8mAn HZtai3 0w9144 AC0Krb 36GUqX eUC8mr 84%3D INTERFACE [facility] [address], [place], [address], 07/28/2024 10:23:38 07/30/20 24 03/12/2022 imagi ng/di agnos tic resul t No observ ation record ed. [email or web address] Not Available 07/02 05:43:57 07/30/20 24 12/24/2018 imagi ng/di dulce bhatti No observ ation record ed. [email or web address] Not Available 07/02 05:44:17 09/28/20 24 09/26/2024 MRI, chris tesha, w/o contr ast [facility] Access ion Number : [id number] H[address]to t Name: Carmen Chowdhury Record Number : [id number] Date of : 1954 Date of Exam: 2023 Referr ing Physic gaby: [facility] [address], [address] [place] [place] [address] Exam: MR Should er (C-) CPT 29205 - Left Room Descri ption: [place] GE Pion 3T Clinic al Histor y: Pain in the left should er, questi on rotato r cuff tear. The patijanell t report s diffus e left should er pain with moveme nt which is severe with moveme nt for years. Histor y of fallin g on stairs 2 weeks ago, limite d range of motion . Techni que: MRI of the left should er was perfor med withou t intrav enous contra st. Compar jorge luis: None. Findin gs: Rotato r cuff: There is a full-t hickne ss tear involv ing the superi or aspect of the infras pinatu s and beater machine operator ior aspect of the supras pinatu s.. The torn fibers of the infras pinatu s are retrac alicia medial to the joint line. Mild subsca pulari s tendin opathy is seen. The teres minor tendon is intact . There is edema within the infras pinatu s and inferi or aspect of the supras pinatu s with areas of atroph y more pronou nced in the superi or aspect of the infras pinatu s. Glenoi d labrum and biceps tendon : There is degene rative tearin g of the superi or labrum . The biceps tendon is in the groove though there is tendin opathy of its intra- articu lar portio n. AC joint: Mild bony prolif eratio n at the acromi oclavi cular joint is seen with slight subcho ndral marrow edema. Articu lar cartil age and bone: There is mild superi or positi oning of the sada l head relati ve to the glenoi d. There is irregu lar chondr al thinni ng throug hout the glenoh umeral joint which in the glenoi d is most pronou nced in the beater machine operator ior superi or aspect . Subcho ndral cyst is seen in the brigette superi or sada l head and greate r tubero sity. Impres joni: 1. Full-t hickne ss tear involv ing the conflu ence of the infras pinatu s and supras pinatu s as above. 2. Mild tendin opathy of subsca pulari s and tendin opathy of the intra- articu lar biceps . 3. Mild to modera te glenoh umeral and mild acromi oclavi cular degene rative change . Electr onical ly Signed By: Marla Costa ra, MD [email or web address] [facility] ([facility]) [address], [place], [address], 10/13/2024 14:53:56 01/05/20 25 01/05/2025 XR, knee, 4 or more view [email or web address]:/ [email or web address] ?Encry pted=s hAaTro YD8dLq bEUv6g %2BXZw aYqtaq 0bqfl% 2Fg9IQ a4ajBk vP9nXo QUaueC m3YtLR FvZlgJ JJ8mAn HZtai3 0l0259 AC0Kqb HiEVqG uKiQtr MwF INTERFACE [facility] [address], [place], [address], 01/05/2025 10:31:42 01/05/20 25 01/05/2025 XR, knee, 4 or more view [email or web address]:/ [email or web address] ?Encry pted=s hAaTro YD8dLq bEUv6g %2BXZw aYqtaq 0bqfl% 2Fg9IQ a4ajBk vP9nXo QUaueC m3YtLR FvZlgJ JJ8mAn HZtai3 1f1847 AC0Kqb HiEVqG uKiQtr MwF INTERFACE [facility] [address], [place], [address], 01/05/2025 10:31:44 Result Notes None recorded. Problems Name Problem SNOMED Code Status Onset Date Resolution Date Notes Provider Name and Address Organization Details Recorded Time Bilateral shoulder joint pain 530983471126 53102 Active 2023 Rk Barrett MD [address], [place], [address] , [facility] 4 20:16:35 Strain of rotator cuff of shoulder 580352609 Active 2013 Status: 'A'; Not Available [facility] 4 10:57:19 Idiopathi c osteoarth ritis 959211673 Active 2015 Problem Code: M19.011; Problem Code Type: ICD-10; Status: 'A'; Not Available [facility] 4 10:57:19 Problem Notes None recorded. Procedures Surgical History Date Name Laterality Status Provider Name and Address Organization Details Recorded Time 5 JZKNEE INJ completed Cody Avina PA-C [address], [place], [address], [facility] 01/05/2025 10:53:42 5 PM Shoulder Kenalog 2cc Injection Unilateral completed Cody Avina PA-C [address], [place], [address], [facility] 01/05/2025 10:53:11 4 PM Shoulder Kenalog 2cc Injection Unilateral completed Rk Barrett MD [address], [place], [address], [facility] 09/29/2024 11:38:48 Shoulder Joint/Bursa Injection, L/R Marcaine 1 cc completed Cody Avina PA-C [address] [facility], [place], [address], [place] [facility] 04/14/2024 09:00:21 Imaging Results Imaging Date Name Status LastModified by Organiz ation Details LastModified Time 07/28/2024 XR, shoulder, 2 or more view completed INTERFACE [facility] [address], [place], [address], 07/28/2024 10:14:06 07/28/2024 XR, shoulder, 2 or more view completed INTERFACE [facility] [address], [place], [address], 07/28/2024 10:14:09 07/28/2024 XR, shoulder, 2 or more view completed INTERFACE [facility] [address], [place], [address], 07/28/2024 10:23:38 03/12/2022 imaging/diagn ostic result completed Information not available 07/30/2024 05:43:57 12/24/2018 imaging/diagn ostic result completed Information not available 07/30/2024 05:44:17 09/26/2024 MRI, shoulder, w/o contrast completed [email or web address] [facility] ([facility]) [address], [place], [address], 10/13/2024 14:53:56 01/05/2025 XR, knee, 4 or more view completed INTERFACE [facility] [address], [place], [address], 01/05/2025 10:31:42 01/05/2025 XR, knee, 4 or more view completed INTERFACE [facility] [address], [place], [address], 01/05/2025 10:31:44 Procedure Notes None recorded. Medical Equipment None Reported. Allergies Allergen ID Allergen Name Allergen Category Reaction Reaction Severity Criticality Documentation Date Start Date Code Code System Note Provider Name and Address Organization Details Recorded Time 90564 Naprosyn medicatio n Not available Not available Not available 02/01/20242017 66140 2 RxNorm DAVID hurley [facility] 4 10:44:42 51498 acetamino phen / oxycodone medicatio n Not available Not available Not available 02/01/20242017 17559 3 RxNorm DAVID hurley [facility] 4 10:44:46 88823 Bactrim medicatio n Not available Not available Not available 02/01/20242014 38258 9 RxNorm DAVID hurley [facility] 4 10:44:34 03487 lisinopri l medicatio n Not available Not available Not available 02/01/20242017 65668 RxNorm [facility] Medications Name Sig Start Date Stop Date Status Note LastModified by Organization Details LastModified Time amoxicillin 500 mg capsule 4 pills 1 hour prior to dental appt 2024 active Not Available Not Available Not Avai lable atorvastati n 40 mg tablet TAKE 1 TABLET DAILY active Not Available Not Available No t Available doxycycline hyclate 100 mg capsule TAKE 1 CAPSULE BY MOUTH TWICE DAILY 02/18 completed Not Available Not Available Not Available fluconazole 150 mg tablet TAKE 1 TABLET BY MOUTH EVERY 3 DAYS FOR 2 DOSES active Not Available Not Available No t Available atenolol 25 mg tablet TAKE 1 TABLET DAILY active Not Available Not Available No t Available amlodipine 5 mg tablet TAKE 1 TABLET DAILY active Not Available Not Available No t Available omeprazole 40 mg capsule,del ayed release TAKE 1 CAPSULE DAILY active Not Available Not Available No t Available doxycycline monohydrate 100 mg tablet TAKE 1 TABLET BY MOUTH TWICE DAILY FOR 7 DAYS active Not Available Not Available No t Available terbinafine HCl 250 mg tablet TAKE 1 TABLET BY MOUTH DAILY FOR 2 MORE MONTHS active Not Available Not Available No t Available benzonatate 100 mg capsule TAKE 1 CAPSULE BY MOUTH TWICE DAILY FOR 12 DAYS NEEDED FOR COUGH active Not Available Not Available No t Available doxycycline monohydrate 100 mg capsule 02/18 completed Not Available Not Available Not Available cephalexin 500 mg capsule TAKE 1 CAPSULE BY MOUTH FOUR TIMES DAILY active Not Available Not Available No t Available Synthroid 50 mcg tablet TAKE 1 TABLET EVERY MORNING active Not Available Not Available No t Available betamethaso ne dipropionat e 0.05 % topical cream APPLY TO THE ELBOWS IN THE AM AND PM NEEDED FOR HYPERKERA TOSIS 07/23 completed Not Available Not Available Not Available ammonium lactate 12 % topical cream APPLY TOPICALLY TO THE AFFECTED AREA 1 TO 2 TIMES DAILY FOR DRY SKIN 02/18 completed Not Available Not Available Not Available hydrochloro thiazide 25 mg tablet TAKE 1 TABLET DAILY active Not Available Not Available No t Available clobetasol 0.05 % topical ointment 02/18 completed Not Available Not Available Not Available amoxicillin 875 mg-potassiu m clavulanate 125 mg tablet TAKE 1 TABLET BY MOUTH TWICE DAILY FOR 10 DAYS active Not Available Not Available No t Available neomycin 3.5 mg/g-polymy avelina B 10,000 unit/g-dexa meth 0.1 % eye oint APPLY A 1/4 INCH STRIP TO THE AFFECTED EYE AREA THREE TO FOUR TIMES A DAY 02/18 completed Not Available Not Available Not Available ciclopirox 0.77 % topical cream 02/18 completed Not Available Not Available Not Available ezetimibe 10 mg tablet TAKE 1 TABLET DAILY active Not Available Not Available No t Available Klor-Con M10 mEq tablet,exte nded release TAKE 1 TABLET EVERY EVENING active Not Available Not Available No t Available fenofibrate 54 mg tablet TAKE 1 TABLET DAILY active Not Available Not Available No t Available Linzess 72 mcg capsule active Not Available Not Available Not Available Vitals Date Recorded Body height Body mass index (BMI) Body weight Provider Name and Address Organization Details Last Updated DateTime 02/19/2024 154.94 cm 30.2 kg/m2 11773.78 g DAVID KAY [place] - [facility] 02/19/2024 10:44:28 Date Recorded Body height Body mass index (BMI) Body weight Provider Name and Address Organization Details Last Updated DateTime 04/14/2024 154.94 cm 30.2 kg/m2 37066.78 g PAKO RDZ [facility] 04/14/2024 08:46:01 Date Recorded Body height Body mass index (BMI) Body weight Provider Name and Address Organization Details Last Updated DateTime 07/28/2024 152.4 cm 28.9 kg/m2 64122.67 g PAKO RDZ [facility] 07/28/2024 10:04:51 Date Recorded Body height Body mass index (BMI) Body weight Provider Name and Address Organization Details Last Updated DateTime 09/29/2024 152.4 cm 28.9 kg/m2 55553.67 g ALESSANDRO ALEJANDRA [facility] 09/29/2024 10:49:11 Date Recorded Body height Body mass index (BMI) Body weight Provider Name and Address Organization Details Last Updated DateTime 01/05/2025 154.94 cm 28.9 kg/m2 96140.63 [facility] 01/05/2025 10:06:08 Social History None recorded. Functional Status None recorded. Mental Status None recorded. Family History Nothing Reported. Medical History Condition Response Allergies/Hayfever N Coronary Artery Disease N Anxiety/Depression N Emphysema N Thyroid Problems Y COPD N Pacemaker N Kidney/Bladder Problems N Anemia N Vascular Disease N Gastrointestinal Disease N Heart Attack ([place]) N Diabetes N Autoimmune disease N Bleeding Disorder N Orthotics N Arthritis Y Seizures/Epilepsy N Blood Clot N AIDS/HIV N Congestive Heart Failure (CHF) N Acid Reflux (GERD) N Cancer N Stroke N Asthma N Peripheral Vascular Disease N Sleep Apnea N Hepatitis N Heart Disease N Rheumatoid Arthritis N Arrhythmia N Pulmonary Embolism N Fibromyalgia N Hypertension Y Osteoporosis N Gynecological HistoryNo gynecological history recorded. Obstetrics History GPAL:G 0 P 0 0 0 0 Past Encounters Encounter ID Performer Location Encounter Start Date Encounter Closed Date Diagnosis/Indication Diagnosis SNOMED-CT Code Diagnosis ICD10 Code Diagnosis Note [id number] EMERALD [facility] [address] [place] [address] 02/19/2024 10:39:30 02/19/2024 12:50:45 History of left total knee replacement [id number] 064373 Z96.652 Pain of ri ght knee joint 7388715948 42761 M25.476 [id number] Cody Avina PA-C [facility] [address] [place] [address] 04/14/2024 08:16:32 05/09/2024 16:00:01 Rotator cuff tear arthropathy 839277428 S46.012D [id number] Cody Avina PA-C [facility] [address] [place] [address] 07/28/2024 09:47:54 08/15/2024 09:00:33 Bilateral shoulder joint pain [id number] M25.512 M25.663 [id number] Rk Barrett MD [facility] [address] [place] [address] 09/29/2024 10:23:11 10/24/2024 11:55:19 Bilateral shoulder joint pain [id number] M25.512 M25.929 [id number] Cody Avina PA-C [facility] - [facility] [address] [place] [address] 01/05/2025 09:53:24 01/25/2025 09:36:43 Pain of left knee region 9190139059 89299 M25.562 Pes anseri nus bursitis of left knee 7225338783 189066 M70.52 Tendinitis of left rotator cuff 9947232522 5105454 M75.82 Health Concerns Section Related Observation LastModified by Organization Detai ls LastModified Time None Recorded Concern Status LastModified by Organization Details LastModified Time None Recorded Advance Directives Directive None Recorded Payers Encounter Date Sequence Insurance Name Policy Number Policy Wilkinson Covered Member ID Wilkinson Member ID Guarantor Name 02/19/2024 1 [facility] (MEDICARE [place]PLACEMENT PPO) [id number] Carmen Chowdhury [id number] Carmen Chowdhury 04/14/2024 1 [place] PPO) [id number] Carmen Chowdhury [id number] Carmen Chowdhury 07/28/2024 1 [place] PPO) [id number] Carmen Chowdhury [id number] Carmen Chowdhury 09/29/2024 1 [facility]: MEDICARE PPO BLUE (MEDICARE REPLACEMENT PPO) [id number] Carmen Chowdhury [id number] Carmen Chowdhury 01/05/2025 1 [facility]ACEMENT PPO) [id number] Carmen Chowdhury [id number] Carmen Chowdhury Notes Date Note Type Note Provider Name and Address Organization Details Recorded Time 02/19/2024 text/html Patient seen und er general supervision of Dr. Dewitt who was available but who did not see the patient.HPI: Patient is a 68-year-old female who presents today for evaluation of bilateral knee pain. She had her left total knee replacement done in 2019, she fell at the beginning of the month sustaining a laceration adjacent to the old incision. She was sutured at an outside urgent care, apparently there was no joint involvement. She has since had her sutures removed but continues with ecchymosis and pain about both knees anteriorly. She tells me she fell on a concrete floor. She has had multiple falls recently. Presents today for specialist evaluation and x-ray reviewPast family, medical, social history and review of systems has been reviewed, updated and is located in the patient? s chart.Examination: The patient is well appearing and in no apparent distress. Alert and oriented x3. Gait is symmetric. Left knee with well-healed surgical incision anteriorly, there is a healing laceration about the midportion of the incision laterally, no surrounding erythema or evidence of infection. There is moderate edema and a large amount of ecchymosis about the anterior aspect of the knee. She has significant tenderness to palpation about the medial aspect of the proximal tibia region. She has range of motion of the knee intact from 0-90? ? ? limited by pain in full flexion. No laxity about the knee. Distally neuromotor intactRight knee skin intact, no erythema, mild edema, mild ecchymosis. She is tender to palpation over the patella and proximal tibia region. No laxity about the knee. Full range of motion. Distally neuromotor intact, sensation intact throughoutX-rays ordered, [facility] of bilateral knees. The left total knee replacement is in appropriate alignment, no evidence of hardware failure or loosening. No fractures visualized. Right knee with no fractures or dislocations, there are moderate to severe arthritic changes about the medial compartment as seen previouslyImpressio n: 68-year-old female with bilateral knee contusions, she is status post left total knee arthroplasty done in 2019Plan: Discussed findings with the patient. Her lab results prior to arrival today. Were negative for any inflammatory changes. She does not have any evidence of infected knee today. She will continue to modify weightbearing as needed, continue icing and taking anti-inflammatory medications as needed. [facility] speech recognition milk receiver tank truck software was used to create portions of this document. An attempt at proofreading has been made to minimize errors. Please call for corrections. CESAR B[facility]udez-Hansel [address] [place] [address] [address], [place], [address], [facility] - [facility] 02/19/2024 12:33:47 OBGyn Episode No OBEpisode recorded.
== END 2025-02-28 11:23 | disposition home or self-care (01) ==
LOC: HO.HMCC 10:05
PROVIDERS: PCP Nurse Practitioner Family; Visit Provider Nurse Practitioner Family
DX: Z00.00 Encounter for general adult medical examination without abnormal findings (principal); J32.9 Chronic sinusitis, unspecified

== ENCOUNTER → 2025-02-28 10:04 | Outpatient (BNVA) | payer MEDICARE, SELFPAY | PROVIDERS: PCP Nurse Practitioner Family; Visit Provider Nurse Practitioner Family | DX: Z00.00 Encounter for general adult medical examination without abnormal findings (principal); J32.9 Chronic sinusitis, unspecified | CPT/HCPCS: 96127; 99397 ==

== ENCOUNTER 2025-05-31 12:32 | Outpatient (REF) | payer MEDICARE, SELFPAY ==
--- NOTE | ~2025-05-31 | US_ITS ---
Exam: Soft tissue ultrasound left elbow. TECHNIQUE: Grayscale and color Doppler images were obtained in the region of the left elbow HISTORY: Prior cellulitis, on antimicrobial therapy, decrease in lump size with yellow discharge Prior: None FINDINGS: In the region of lump/drainage, there is thickening of the subcutaneous soft tissues which appear heterogeneous. The subcutaneous tissues appear echogenic. There are thin somewhat linear anechoic areas consistent with fluid. There is a punctate echogenic area without posterior acoustic shadowing. US/US Extremity Nonvas Limited LT IMPRESSION: Subcutaneous soft tissue thickening and heterogeneous echogenicity consistent with edema/cellulitis. There are bands of fluid without a discrete abscess. Electronically signed by: Jeffrey Grant MD 05/31/2025 01:36 PM EDT
--- OUTSIDE RECORDS SUMMARY | 2025-05-31 13:02 | XMS_ITS | Patient Health Record ---
Author Organization [facility] Address [address] [facility] [address] [place] [address] Care Team Providers Care Surface To Air Weapons Officer Name Role Phone Adry Belén Unavailable [phone] Nohemi Kendrick Unavailable Unavailable Meme Briseno Unavailable [phone] Jorge Alberto Swift Unavailable [phone] Munir Covarrubias Unavailable [phone] Allergies Allergen (clinical drug ingredient) Drug/Non Drug Allergy documented on EMR Reaction Allergy Type Onset Date Status Sulfamethoxazole Unknown Drug Allergy Active lisinopril Lisinopril Unknown Drug Allergy Activ e naproxen Naproxen Unknown Drug Allergy Active oxycodone Oxycodone Unknown Drug Allergy Active trimethoprim Trimethoprim Unknown Drug Allergy A ctive Reason For Referral No Information Medications Medication SIG (Take, Route, Frequency, Duration) Notes Start Date End Date Status Fenofibrate 54 MG 1 tablet with food Orally Once a day; Duration: 30 day(s) 10/18/2024 Active Atenolol 25 MG 1 tablet Orally Once a day; Duration: 30 day(s) 10/18/2024 Active Atorvastatin Calcium 40 MG 1 tablet Oral ly Once a day; Duration: 30 day(s) 10/18/2024 Active Levothyroxine Sodium 50 MCG 1 tablet in the morning on an empty stomach Orally Once a day; Duration: 30 day(s) 10/18/2024 Active Cetirizine HCl 10 MG 1 tablet Orally Onc e a day; Duration: 30 day(s) 10/18/2024 Active Ezetimibe 10 MG 1 tablet Orally Once a day; Duration: 30 day(s) 10/18/2024 Active Omeprazole 40 MG 1 capsule 1/2 to 1 h our before morning meal Orally Once a day; Duration: 30 day(s) 10/18/2024 Active amLODIPine Besylate 5 MG 1 tablet Orally Once a day; Duration: 30 day(s) 10/18/2024 Active Problems Problem Type SNOMED Code ICD Code Onset Dates Problem Status W/U Status Risk Notes Problem Vitamin D deficiency (65303246) Vitamin D deficiency, unspecified (E55.9) Active confirmed Problem 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) Active confirmed Problem Arthritis (9707385) Arthritis (M19.90) Active confirmed Problem Hypertension (05396507) Hypertension (I10) Active confirmed Problem Gastroesophageal reflux disease (957435220) GERD (gastroesophage al reflux disease) (K21.9) Active confirmed Problem Allergic rhinitis (69866401) Allergic rhinitis (J30.9) Active confirmed Problem Hypothyroid (70887384) Hypothyroid (E03.9) Active confirmed Problem Osteoporosis (35479479) Osteoporosis (M81.0) Active confirmed Vital Signs Heart Rate 76 /min 05/30/2025 Temperature 97.6 degrees Fahrenheit 05/30/2025 Respiratory Rate 18 /min 05/30/2025 Height-cm 154.94 cm 05/30/2025 Oximetry 98 % 05/30/2025 Blood pressure diastolic 72 mm Hg 05/30/2025 Weight-kg 68.95 kg 05/30/2025 Height 61 in 05/30/2025 Blood pressure systolic 146 mm Hg 05/30/2025 Weight 152 lbs 05/30/2025 BMI 28.72 kg/m2 05/30/2025 Encounters Encounter Location Date Provider Diagnosis [facility] [address] [facility] [address] [place] [address] 10/19/2024 Munir Covarrubias Non-pressure chronic ulcer of other part of left lower leg with fat layer exposed L97.822 ; Hypertension I10 and Hypothyroid E03.9 [facility] [address] [address] 10/24/2024 Meme Briseno Non-pressure chronic ulcer of other part of left lower leg with fat layer exposed L97.822 ; Hypertension I10 and Hypothyroid E03.9 [facility] [address] [place] [address] 10/31/2024 Meme Briseno Non-pressure chronic ulcer of other part of left lower leg with fat layer exposed L97.822 ; Hypertension I10 and Hypothyroid E03.9 [facility] [address] [place] [address] 11/07/2024 Meme Briseno Non-pressure chronic ulcer of other part of left lower leg with fat layer exposed L97.822 ; Hypertension I10 and Hypothyroid E03.9 [facility] [address] [place] [address] 11/14/2024 Meme Briseno Non-pressure chronic ulcer of other part of left lower leg with fat layer exposed L97.822 ; Hypertension I10 and Hypothyroid E03.9 [facility] [address] [place] [address] 11/28/2024 Meme Briseno Non-pressure chronic ulcer of other part of left lower leg with fat layer exposed L97.822 ; Hypertension I10 and Hypothyroid E03.9 [facility] [address] [place] [address] 12/12/2024 Meme Briseno Non-pressure chronic ulcer of other part of left lower leg with fat layer exposed L97.822 ; Hypertension I10 and Hypothyroid E03.9 [facility] [address] [facility] [address] [address] [place] [address] 05/09/2025 Anzhela Savonina Unspecified open wound of left elbow, initial encounter S51.002A ; Localized edema R60.0 and Local infection of skin and subcutaneous tissue L08.9 [facility] [address] [place] [address] 05/19/2025 Anzhela Savonina Unspecified open wound of left elbow, subsequent encounter S51.002D [facility] [address] [place] [address] 05/30/2025 Jorge Alberto Swift Unspecified open wound of left elbow, subsequent encounter S51.002D [facility] [address] [address] [place] [address] 10/18/2024 Munir Covarrubias [facility] [address] [place] [address] 05/10/2025 Anzhela Savonina [facility] [address] [place] [address] 05/30/2025 Belén Rider [facility] [address] [place] [address] 05/30/2025 Belén Rider [facility] [address] [place] [address] 05/30/2025 Belén Rider Assessments Encounter Date Diagnosis (ICD Code) Assessment Notes Treatment Notes Treatment Clinical Notes Section Notes 10/19/2024 Non-pressure chronic ulcer of other part of left lower leg with fat layer exposed (ICD-10 - L97.822) On assessment today, Carmen is noted to be afebrile and other VS were within normal limits. The patient reports mild tenderness surround the wound area with palpation. We removed dressings, and I examined the wound site. The left lower leg wound has full thickness, and there was thick slough covered on the wound bed and the surround the wound area has mild erythema and maceration. There was skin tear clustered the wound, still skin flap covered. There is no suggestive s/s of an underlying infectious process. There was no foul odor noted. After examination, I discussed the indication of debridement and she was agreeable. I then performed debridement to remove devitalized tissues as outlined. She tolerated procedure well. The wound site were then cleansed with saline and thereafter, HFB applied onto the wound site, xeroform to the skin tear, and zinc to shlomo wound areas. The site were then covered with a dry dressing. Patient was educated to protect wound site continue performing above dressing changes regularly. 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 S/S of infection reviewed and when to go to ED. Patient will have FU in one week. Patient verbalized understand and questions or concerns addressed at this time. I, SHABBIR London, examined, evaluated , and treated the patient. Dr. Carin Romero was available for any questions or concerns that I may have had.: A total of 40 minutes was spent on this visit (face to face and non face to face) documenting HPI and performing physical exam, reviewing previous notes and testing, reviewing and adjusting treatment plan, counseling the patient on treatment choices, disease process, expected outcomes, and documenting the findings in the note. 10/24/2024 Non-pressure chronic ulcer of other part of left lower leg with fat layer exposed (ICD-10 - L97.822) Carmen presents for her 1 week f/u. I was able to do debridement today and it looks better. There are no signs of infection. Since the HFB is sticking to the wound bed, I will have her use doubled up Xeroform and DCD with mild compression in the form of tubigrip for waking hours. She may use lidocaine 4% (avail OTC) for dressing change and prn before bedtime to help with pain. Keep wound covered otherwise. I did note improvement and there is new skin to the periphery so this is good. There is no suggestive s/s of an underlying infectious process. There was no foul odor noted. After examination, I discussed the indication of debridement and she was agreeable. I then performed debridement to remove devitalized tissues as outlined. She tolerated procedure well. S/S of infection reviewed and when to go to ED. Patient will have FU in one week. Patient verbalized understand and questions or concerns addressed at this time. Meme Soriano FNP-BC, examined, evaluated , and treated the patient. Dr. Carin Romero was available for any questions or concerns that I may have had. 10/31/2024 Non-pressure chronic ulcer of other part of left lower leg with fat layer exposed (ICD-10 - L97.822) Doing well and showing signs of healing. This will take some time to heal. I reassured that there are no signs of skin infection and I reviewed s/s of skin infection. We reviewed moist wound care instructions: moisturize intact skin and protect periwound. Cleanse wound with NS or fragrance free soap. Apply dressing-xerofor m as described above and change as directed. Keep covered otherwise. Do not air dry. Control leg edema to aid in healing. Wear compression for waking hours every day. Elevate ankles to heart level when sitting. Call sooner if any questions or concerns. They understand and agree with plan and I answered all questions to their satisfaction. Meme SorianoC, examined, evaluated , and treated the patient. Dr. Carin Romero was available for any questions or concerns that I may have had. 11/07/2024 Non-pressure chronic ulcer of other part of left lower leg with fat layer exposed (ICD-10 - L97.822) Doing well and healing. I reassured that there are no signs of skin infection and I reviewed s/s of skin infection. We reviewed moist wound care instructions: moisturize intact skin and protect periwound. Cleanse wound with NS or fragrance free soap. New: Considering the drainage, begin Aquacel Ag to the wound beds, barrier cream to the periwounds and DCD. Change every other day. Control leg edema to aid in healing. Wear compression for waking hours every day. Elevate ankles to heart level when sitting. Call sooner if any questions or concerns. She understands and agree with plan and I answered all questions to their satisfaction. I, Meme AQUINO-C, examined, evaluated , and treated the patient. Dr. Carin Romero was available for any questions or concerns that I may have had. 11/14/2024 Non-pressure chronic ulcer of other part of left lower leg with fat layer exposed (ICD-10 - L97.822) Doing well and healing. I reassured that there are no signs of skin infection and I reviewed s/s of skin infection. We reviewed moist wound care instructions: moisturize intact skin and protect periwound. Cleanse wound with NS or fragrance free soap. cont xeroform to the wound beds, barrier cream to the periwounds and DCD. Change every other day. Control leg edema to aid in healing. Wear compression for waking hours every day. Elevate ankles to heart level when sitting. Call sooner if any questions or concerns. She understands and agree with plan and I answered all questions to their satisfaction. I, Meme AQUINO-C, examined, evaluated , and treated the patient. Dr. Carin Romero was available for any questions or concerns that I may have had. 11/28/2024 Non-pressure chronic ulcer of other part of left lower leg with fat layer exposed (ICD-10 - L97.822) She continues to slowly heal. The lateral wound has healed. I reassured that there are no signs of skin infection and I reviewed s/s of skin infection. We reviewed moist wound care instructions: moisturize intact skin and protect periwound. I recommend massaging the periwound and scaring with Vitamin E oil at dressing change. Cont Xeroform to the wound bed, barrier cream to the periwound and DCD. Change every other day. Cont wearing compression-tubi manufacturing specialist for waking hours every day. Call sooner if any questions or concerns. She understands and agree with plan and I answered all questions to their satisfaction. I, Meme AQUINO-Hansel, examined, evaluated , and treated the patient. Dr. Carin Romero was available for any questions or concerns that I may have had. 12/12/2024 Non-pressure chronic ulcer of other part of left lower leg with fat layer exposed (ICD-10 - L97.822) She has healed and will use a good skin lotion to the leg to continue hydrating the skin. She does not need a f/u. I, Meme DELVALLE, examined, evaluated , and treated the patient. Dr. Carin Romero was available for any questions or concerns that I may have had. 05/09/2025 Localized edema (ICD-10 - R60.0) 05/09/2025 Unspecified open wound of left elbow, initial encounter (ICD-10 - S51.002A) On exam, vital signs stable, afebrile, non-ill appearing. I removed the dressing and examined the wound located on the left elbow. Wound is covering with fibrinous slough, edges are detached and rolled, the elbow is edematous. There is no surrounding erythema, no purulence, no odor. I discussed the indication for debridement and patient was agreeable. I performed debridement of the wound as outlined above and used silver nitrate to cauterize the epibole. Wound was cleaned with saline and HFB was applied to the wound bed, zinc to periwound secured with DSD. Tubigrip was applied to the left arm to reduce edema. She tolerated the procedure well. Carmen presents today for initial visit for treatment of left elbow wound of unknown etiology. Continue with full course of Doxycycline and Cephalexin as prescribed. She had a X-ray at urgent care, negative as per patient. I will request record from [facility]. Begin cleaning the wound with saline and applying HFB to the wound to be changed every other day. Apply Tubigrip daily to reduce edema and encouraged elevation of the arm. If wound does not progress in healing, will consider a biopsy. Discussed signs of worsening infection and when to report. She is agreeable to plan. She will return in 1 week for a follow-up visit. Initial encounter: I spent 35 minutes of direct and indirect care of this patient reviewing records, gathering H&P, evaluation, formulating plan, education and documentation. I Belén DELVALLE, examined, evaluated and treated the patient. Dr. Carin Romero was available for any question or concerns that I may have had. 05/19/2025 Unspecified open wound of left elbow, subsequent encounter (ICD-10 - S51.002D) 05/30/2025 Unspecified open wound of left elbow, subsequent encounter (ICD-10 - S51.002D) 05/09/2025 Local infection of skin and subcutaneous tissue (ICD-10 - L08.9) 12/12/2024 Hypertension (ICD-10 - I10) 11/28/2024 Hypertension (ICD-10 - I10) 11/14/2024 Hypertension (ICD-10 - I10) 11/07/2024 Hypertension (ICD-10 - I10) 10/31/2024 Hypertension (ICD-10 - I10) 10/24/2024 Hypertension (ICD-10 - I10) 10/19/2024 Hypertension (ICD-10 - I10) 10/19/2024 Hypothyroid (ICD-10 - E03.9) 10/24/2024 Hypothyroid (ICD-10 - E03.9) 10/31/2024 Hypothyroid (ICD-10 - E03.9) 11/07/2024 Hypothyroid (ICD-10 - E03.9) 11/14/2024 Hypothyroid (ICD-10 - E03.9) 11/28/2024 Hypothyroid (ICD-10 - E03.9) 12/12/2024 Hypothyroid (ICD-10 - E03.9) 05/09/2025 Other I, Curtis Romero MD confirm that Belén DELVALLE understands and adheres to the guidelines of the established clinical protocols in the office. I confirm the above care provided was rendered under my general supervision as initially planned and subsequently discussed and supervised by me. 05/19/2025 Other On exam, vital signs stable, afebrile, non-ill appearing. I removed the dressing and examined the wound located on the left elbow. Wound is measuring smaller, wound bed covered with slough, epibole is present. The edema and erythema has improved. There is no purulence, no odor, no signs of acute infection. I discussed the indication for debridement and patient was agreeable. I performed debridement of the wound as outlined above and used silver nitrate to cauterize the epibole. Wound was cleaned with saline and HFB was applied to the wound bed, zinc to periwound secured with DSD. Tubigrip was applied to the left arm to reduce edema. She tolerated the procedure well. Carmen presents today for a follow up for treatment of left elbow wound of unknown etiology. She completed the Doxycycline and Cephalexin as prescribed. Her wound improved this week. She will continue with HFB to the wound to be changed every other day. I recommended that she makes a follow up appointment with dermatology, may consider a biopsy if wound healing stalls. Discussed signs of worsening infection and when to report. She is agreeable to plan. She will return in 1 week for a follow-up visit. I Belén DELVALLE, examined, evaluated and treated the patient. Dr. Carin Romero was available for any question or concerns that I may have had. I, Curtis Romero MD confirm that Belén DELVALLE understands and adheres to the guidelines of the established clinical protocols in the office. I confirm the above care provided was rendered under my general supervision as initially planned and subsequently discussed and supervised by me. 05/30/2025 Other On exam, today, Mima vital signs are stable, and she is afebrile. Nursing removed the dressing and I examined the wound located on the left elbow. There are no s/s of infectious property noted. left elbow wound is noted as stable today based on assessment and measuremets from last visit. The wound bed is noted with scant slough, and periwound with fibrinous rim I discussed the indication for debridement and patient was agreeable. I thereafter performed debridement of the wound to remove devitalized tissue as outlined above.. she tolerated procedure well Nursing cleaned the wound with saline and aquacel was applied to the wound bed, zinc to periwound secured with DSD. Tubigrip was applied to the left arm to reduce edema. i recommended changing from HFB to aquacel due to decreased drainage continue with the above dressing changes every otherday and weekly wound care FU consider a biopsy if wound healing stalls. 05/30/25: . Today she reports having an abdscess to left elbow distal portion that she has had since the wound developed and 5 days ago while pressing on it and reports 4 gauze of yellow fluid was drained. [place] [facility] [place] She states will go after the appointment. I Jorge Alberto Swift, MSN, BRANCH MANAGER TRAINEE, PROPELLER MECHANIC-C, examined, evaluated and treated the patient. Dr. Carin Romero was available for any question or concerns that I may have had. Plan Of Treatment Next Appt Details Provider Name:Jorge Alberto Swift, 06/06/2025 11:30:00 AM, [address], [facility] [address], [place], [address], Insurance Providers Payer Name Payer Address Payer Phone Subscriber Number Group Number Insured Name Patient Relationship to Insured Coverage Start Date Coverage End Date [facility] ([facility] [address] [place], [place] [phone] [id number] Carmen Chowdhury Self - patient is the insured 4 Medical (General) History Medical History History ICD Code Cellulitis L03.90 Arthritis M19.90 GERD (gastroesophageal reflux disease) K 21.9 Allergic rhinitis J30.9 Vitamin D deficiency, unspecified E55.9 Hypothyroid E03.9 Osteoporosis M81.0 Hypertension I10 Surgical History Surgery Date(Month/Year) cataract surgery pilonidal cyst excision Knee surgery Colonoscopy Left knee replacement shoulder surgery section
--- OUTSIDE RECORDS SUMMARY | 2025-05-31 13:03 | XMS_ITS | Patient Health Record ---
Author Organization [facility] Address [address] [place] [address] Care Team Providers Care Substance Addiction Coordinator Name Role Phone Umang Lockhart MD Primary Care Provider Unavailelli campbell Adeel Liana Unavailable [phone] Allergies Allergen (clinical drug ingredient) Drug/Non Drug Allergy documented on EMR Reaction Allergy Type Onset Date Status sulfa facial swelling Drug Allergy A ctive Reason For Referral No Information Medications Medication SIG (Take, Route, Frequency, Duration) Notes Start Date End Date Status Aspirin 81 MG 1 tablet Orally Once a day Active PriLOSEC 40 MG 1 capsule Orally Once a day Active Losartan Potassium 25 MG 1 tablet Orally Once a day Active Atenolol 25 MG 1 tablet Orally Once a day Active Synthroid 50 MCG 1 tablet Orally Once a day Active Simvastatin 40 MG 1 tablet in the even ing Orally Once a day Active Singulair 10 MG 1 tablet in the even ing Orally Once a day Active Problems Problem Type SNOMED Code ICD Code Onset Dates Problem Status W/U Status Risk Notes Problem Onychomycosis (629080843) Onychomycosis (110.1) Active confirmed Problem Pain in limb (86445798) Pain in Limb (729.5) Active confirmed Problem Hammer toe (597464250) Hammer toe (735.4) Active confirmed Problem Ganglion cyst (56363426) Ganglion Cyst (727.43) Active confirmed Plan Of Treatment Pending Test Test Name Order Date [id number] NAIL, 1-5 11/13/2014 Insurance Providers Payer Name Payer Address Payer Phone Subscriber Number Group Number Insured Name Patient Relationship to Insured Coverage Start Date Coverage End Date [facility] [address] [place] [address] [id number] Christiano Chowdhury Spouse - patient is the spouse of the insured Medical (General) History Medical History History ICD Code High blood pressure Reflux chronic sinusitis Thyroid disorder Measles Mumps Chicken pox
--- OUTSIDE RECORDS SUMMARY | 2025-05-31 13:03 | XMS_ITS | Data Portability ---
Author Organization [facility], [facility] Address [address] [place] [address] Care Team Providers Care Hazard Waste Handler Name Role Phone NOEMY GONSALES Primary Care Provider [phone] Assessment Encounter Date Assessment Date Assessment LastModified [...] are reviewed. Follow-up on a p.r.n. basis. [facility] speech recognition ob/gyn software was used to create portions of this document. An attempt at proofreading has been made to minimize errors. Please call for corrections. [email or web address] Not available 04/14/2024 09:02:46 07/28/2024 07/28/2024 Patient [...] intact. X-rays ordered, obtained and reviewed at [facility] 4 views of bilateral shoulders reveal no [...] findings. Follow up sooner if further difficulties. [facility] speech recognition ob/gyn software was used to create portions of this document. An attempt at proofreading has been made to minimize errors. Please call for corrections. [email or web address] Not available 07/28/2024 10:25:34 09/29/2024 09/29/2024 HPI: [...] reflex X-rays ordered, obtained and reviewed at [facility] 4 views of bilateral shoulders reveal no [...] been of some benefit on the right. [email or web address] Not available 09/29/2024 11:38:36 01/05/2025 01/05/2025 Patient [...] been using topical anti-inflammatories as well as stzx-ikb-jbdbkpd pain relievers without significant improvement. Denies numbness [...] tenderness noted. Good motion of the knee 0-120 without significant difficulty, no instability noted. Calf is soft and nontender. X-rays ordered, obtained and reviewed at [facility] 4 views of the left knee reveal [...] basis. Falls precaution regarding her TKA discussed. [facility] speech recognition ob/gyn software was used to create portions of this document. An attempt at proofreading has been made to minimize errors. Please call for corrections. [email or web address] Not available 01/05/2025 10:57:22 04/05/2025 04/05/2025 I am seeing the patient today under the supervision of Dr. Dewitt who was available but who did not see the patient. Patient comes to the office with known Bi-lateral shoulder impingement syndrome. The patient has done well with conservative management for their shoulder pain. Has had increasing discomfort over the past several weeks without injury. Pain is generalized about the shoulder. Off and on discomfort is noted at night. PFMSH and ROS has been reviewed, updated, and signed by me and is located in the patient's chart. PHYSICAL FINDINGS: The patient is well appearing, in no apparent distress, alert and oriented to person, place and time. Gait is symmetric. No significant swelling, warmth or erythema about either shoulder. There is mild tenderness to palpation about the shoulder and AC joint. Active range of motion of the shoulder is near full with mild to moderate pain through mid range manipulations. 4/5 strength of the shoulder, but the rotator cuff seems to fire well. Good stability of the shoulder. Peripheral, vascular, lymphatic examination, skin, neurologic coordination, reflexes, sensation are within normal limits. ASSESSMENT: Bi-lateral shoulder Rotator cuff arthropathy. PLAN: The patient has done well with conservative management in regards to the Bi-lateral shoulder. We discussed the role of medications, physical therapy, injections, and potential surgical interventions depending on conservative outcome Continued conservative management recommended. Along with cortisone injection today. Please see procedure note. Patient will follow up as directed. [email or web address] Not available 04/05/2025 17:50:12 Plan of Treatment Reminders Order Date Submit Date Provider Last Modified By Organization Details Last Modified Time Details Appointments RECHECK 15 2024 08:30A M Cody Avina PA-C Not available Not available Not available Lab None recorded . Referral None recorded . Procedures None recorded . Surgeries None recorded . Imaging XR, knee, 4 or more view - room 121 4V L knee 2024 025 [facility], [address], [address], [place], [address], 01/25/2025 09:36:43 XR, shoulder , 2 or more view - room 120 4V óscar shoulder s 2023 024 [facility], [address], [address], [place], [address], 08/15/2024 09:00:34 MRI, shoulder , w/o contrast - MRI L shoulder r/o RCT 2023 024 [facility] ([facility] [address], [place], [address], 09/28/2024 05:18:01 Medication Orders None recorded . Patient TargetsNo targets recorded. Patient InstructionsNo instructions recorded. Reason for Referral None Reported. Results Created Date Observation Date Name Description Value Unit Range Abnormal Flag Note LastModifiedBy Organization Detail LastModifiedTime 07/28/20 24 07/28/2024 XR, shoul tesha, 2 or more view http:/ [email or web address] ?Encry pted=s hAaTro YD8dLq bEUv6g %2BXZw aYqtaq 0bqfl% 2Fg9IQ a4ajBk vP9nXo QUaueC m3YtLR FvZl [facility] 3i5738 AC0Krb 36GUqX eUC8mr 84%3D INTERFACE [facility] [address], [place], [address], 07/28/2024 10:14:06 07/28/20 24 07/28/2024 XR, shoul tesha, 2 or more view http:/ [email or web address] ?Encry pted=s hAaTro YD8dLq bEUv6g %2BXZw aYqtaq 0bqfl% 2Fg9IQ a4ajBk vP9nXo QUaueC m3YtLR [facility] [place] [address] 3n3083 AC0Krb 36GUqX eUC8mr 84%3D INTERFACE [facility] [address], [place], [address], 07/28/2024 10:14:09 07/28/20 24 07/28/2024 XR, shoul tesha, 2 or more view http:/ [email or web address] ?Encry pted=s hAaTro YD8dLq bEUv6g %2BXZw aYqtaq 0bqfl% 2Fg9IQ a4ajBk vP9nXo QUaueC m3YtLR FvZl JJ8mAn HZtai3 2d9513 AC0Krb 36GUqX eUC8mr 84%3D INTERFACE [facility] [address], [place], [address], 07/28/2024 10:23:38 07/30/20 24 03/12/2022 imagi ng/di agnos tic resul t No observ ation record ed. [email or web address] Not Available 07/02 05:43:57 07/30/20 24 12/24/2018 imagi ng/di agnos tic resul t No observ ation record ed. [email or web address] Not Available 07/02 05:44:17 09/28/20 24 09/26/2024 MRI, chris parkinson, w/o contr ast [facility] Access ion Number : [id number] Patien t Name: Carmen Chowdhury tala Record Number : [id number] Date of : 1954 Date of Exam: 2023 Referr ing Physic gaby: [facility] [address], [address] [place] [address] Exam: MR Should er (C-) CPT 41166 - Left Room Descri ption: [facility] Pion 3T Clinic al Histor y: Pain in the left should er, questi on rotato r cuff tear. The patien t report s diffus e left should [...] aspect of the infras pinatu s and forest aide ior aspect of the supras pinatu s.. [...] d is most pronou nced in the forest aide ior superi or aspect . Subcho ndral [...] Signed By: Marla Costa ra, MD [email or web address] [facility] ([facility]) [address], [place], [address], 10/13/2024 14:53:56 01/05/20 25 01/05/2025 XR, knee, 4 or more view http:/ [email or web address] ?Encry pted=s hAaTro YD8dLq bEUv6g %2BXZw aYqtaq 0bqfl% 2Fg9IQ a4ajBk vP9nXo QUaueC m3YtLR FvZlgJ JJ8mAn HZtai3 1w0312 AC0Kqb HiEVqG uKiQtr MwF INTERFACE [facility] [address], [place], [address], 01/05/2025 10:31:42 01/05/20 25 01/05/2025 XR, knee, 4 or more view http:/ [email or web address] ?Encry pted=s hAaTro YD8dLq bEUv6g %2BXZw aYqtaq 0bqfl% 2Fg9IQ a4ajBk vP9nXo QUaueC m3YtLR FvZlgJ JJ8mAn HZtai3 9j1592 AC0Kqb HiEVqG uKiQtr MwF INTERFACE [facility] [address], [place], [address], 01/05/2025 10:31:44 Result Notes Documentation Provider Name and Address Organization Details Recorded Time Xr, Shoulder, 2 Or More View : [email or web address] crypted=uoDdHhzGK3lWrvTRo2s %5LJGlkEounb9ocml%7Oj3CRa3e mJqjP3bNgUEbdeJh8HfKDTgIqkN HS2bVuETmhr17l7113FX5Pdd55F ThNgVR1ge53%3D Not Available [facility] 07/28/2024 10:14:07 Xr, Shoulder, 2 Or More View : [email or web address] crypted=fnRyIghXU7sVecQGw4x %9NZVflExbcw7jmwf%4Ka7SOd0d cWaqR0tPeCOgguZn0JiWDRcStaK QS5bUrMJefq93u1008DV1Ijs63H SrJdBG5br68%3D Not Available [facility] 07/28/2024 10:14:09 Xr, Shoulder, 2 Or More View : [email or web address] crypted=jyNqXmyND2fRidQSi3n %0CRXvrLqtce5zeka%8Zv8GPg6m tWlmC9eClAJjdzPi6RmHAHhXqwC BV1aBjXDdpq53e0702ZK5Rjp14E HxSzZL5nf91%3D Not Available [facility] 07/28/2024 10:23:38 Mri, Shoulder, W/o Contrast : [facility] Accession Number: [id number] Patient Name: Carmen Chowdhury Date of : 1955 Date of Exam: 09-26-2024 Referring Physician: Cody Avina [facility] ([facility]) [address], [address] [place] [address] Exam: MR Shoulder (C-) CPT 28937 - Left [facility] History: Pain in the left shoulder, question rotator cuff tear. The patient reports diffuse left shoulder pain with movement which is severe with movement for years. History of falling on stairs 2 weeks ago, limited range of motion. Technique: MRI of the left shoulder was performed without intravenous contrast. Comparison: None. Findings: Rotator cuff: There is a full-thickness tear involving the superior aspect of the infraspinatus and posterior aspect of the supraspinatus.. The torn fibers of the infraspinatus are retracted medial to the joint line. Mild subscapularis tendinopathy is seen. The teres minor tendon is intact. There is edema within the infraspinatus and inferior aspect of the supraspinatus with areas of atrophy more pronounced in the superior aspect of the infraspinatus. Glenoid labrum and biceps tendon: There is degenerative tearing of the superior labrum. The biceps tendon is in the groove though there is tendinopathy of its intra-articular portion. AC joint: Mild bony proliferation at the acromioclavicular joint is seen with slight subchondral marrow edema. Articular cartilage and bone: There is mild superior positioning of the humeral head relative to the glenoid. There is irregular chondral thinning throughout the glenohumeral joint which in the glenoid is most pronounced in the posterior superior aspect. Subchondral cyst is seen in the anterosuperior humeral head and greater tuberosity. Impression: 1. Full-thickness tear involving the confluence of the infraspinatus and supraspinatus as above. 2. Mild tendinopathy of subscapularis and tendinopathy of the intra-articular biceps. 3. Mild to moderate glenohumeral and mild acromioclavicular degenerative change. Electronically Signed By: Marla hurley [place] - [facility] 10/13/2024 14:53:56 Xr, Knee, 4 Or More View : [email or web address] crypted=juFkFefNY0tJjuKUf3r %6YEJwuFzpnh7owbr%9Hg9RSi6n aEexE1fHzWMtmtPi1HbVVJrXmgA HF8bPpCLsyk90g7184AA8JxvKxE VqGuKiQtrMwF Not Available [facility] 01/05/2025 10:31:43 Xr, Knee, 4 Or More View : [email or web address] crypted=ebOkNwiUY6wGtdUMe9a %0MCBdzPaoib3fxgp%2Rs0XId3m hGyvX9ySvOBtpfAm5OpHVDmJtpM TU1kKyUBtwj68z2393AQ6MiwDzO VqGuKiQtrMwF Not Available [facility] 01/05/2025 10:31:45 Problems Name Problem SNOMED Code Status Onset Date Resolution Date Notes Provider Name and Address Organization Details Recorded Time Bilateral shoulder joint pain 835426524383 18553 Active 2023 Rk Barrett MD [facility] [address], [place], [address] , [facility] - [facility] 20:16:35 Strain of rotator cuff of shoulder 340311380 Active 2013 Status: 'A'; Not Available [facility] 10:57:19 Idiopathi c osteoarth ritis 011024352 Active 2015 Problem Code: M19.011; Problem Code Type: ICD-10; Status: 'A'; Not Available [facility] 10:57:19 Problem Notes None recorded. Procedures Surgical History Date Name Laterality Status Provider Name and Address Organization Details Recorded Time 5 JZShoulder INJ Óscar completed PAKO RDZ [facility] 04/05/2025 16:43:30 5 JZKNEE INJ completed Cody Avina PA-C [address] [facility], [place], [address], [facility] 01/05/2025 10:53:42 5 PM Shoulder Kenalog 2cc Injection Unilateral completed Cody Avina PA-C [address], [place], [address], [facility] 01/05/2025 10:53:11 4 PM Shoulder Kenalog 2cc Injection Unilateral completed Rk Barrett MD [address], [place], [address], [facility] 09/29/2024 11:38:48 4 Shoulder Joint/Bursa Injection, L/R Marcaine 1 cc completed Cody Avina PA-C [address] [facility], [place], [address], [facility] 04/14/2024 09:00:21 Imaging Results None recorded. Procedure Notes None recorded. Medical Equipment None Reported. Allergies Allergen ID Allergen Name Allergen Category Reaction Reaction Severity Criticality Documentation Date Start Date Code Code System Note Provider Name and Address Organization Details Recorded Time 59724 Naprosyn medicatio n Not available Not available Not available 02/01/20242017 2 RxNorm DAVID CALVOYMOUR [facility], [facility] 4 10:44:42 86708 acetamino phen / oxycodone medicatio n Not available Not available Not available 02/01/20242017 91550 3 RxNorm DAVID KAY [facility], [facility] 4 10:44:46 35162 Bactrim medicatio n Not available Not available Not available 02/01/20242014 00991 9 RxNorm DAVID KAY null, [facility] 4 10:44:34 31734 lisinopri l medicatio n Not available Not available Not available 02/01/20242017 56530 RxNorm Not Available [facility] 4 11:24:21 Medications Name Sig Start Date Stop Date Status Note LastModified by Organization Details LastModified Time amoxicillin 500 mg capsule TAKE 4 CAPSULES BY MOUTH 1 HOUR BEFORE DENTAL APPOINTME NT active Not Available Not Available No t Available atorvastati n 40 mg tablet TAKE 1 [...] capsule,del ayed release TAKE 1 CAPSULE DAILY AT 6:30AM active Not Available Not Available No t [...] mg capsule TAKE 1 CAPSULE BY MOUTH EVERY 12 HOURS FOR 5 DAYS active Not Available Not Available No [...] Available Not Available Not Available amoxicillin 875 mg-leonarda m clavulanate 125 mg tablet TAKE 1 [...] Updated DateTime 01/05/2025 154.94 cm 28.9 kg/m2 65719.[address] PAKO [address]Z [facility] 01/05/2025 10:06:08 Date Recorded Body height Body mass index (BMI) Body weight Provider Name and Address Organization Details Last Updated DateTime 04/05/2025 154.94 cm 28.3 kg/m2 16683.86 [address] PAKO RDZ [facility] 04/05/2025 16:43:49 Date Recorded Body height Body mass index (BMI) Body weight Provider Name and Address Organization Details Last Updated DateTime 04/14/2024 154.94 cm 30.2 kg/m2 07870.78 g PAKO RDZ [facility] 04/14/2024 08:46:01 Date Recorded Body height Body mass index (BMI) Body weight Provider Name and Address Organization Details Last Updated DateTime 07/28/2024 152.4 cm 28.9 kg/m2 66528.[address] PAKO [address]Z [facility] 07/28/2024 10:04:51 Date Recorded Body height Body mass index (BMI) Body weight Provider Name and Address Organization Details Last Updated DateTime 09/29/2024 152.4 cm 28.9 kg/m2 01634.67 g ALESSANDRO JUSTYN [facility] 09/29/2024 10:49:11 Social History None recorded. Functional Status None recorded. Mental Status None recorded. Family History Nothing Reported. Medical History Condition Response Allergies/Hayfever N Coronary Artery Disease N Anxiety/Depression N Emphysema N Thyroid Problems Y COPD N Pacemaker N Anemia N Kidney/Bladder Problems N Vascular Disease N Heart Attack ([place]) N Gastrointestinal Disease N Diabetes N Autoimmune disease N Bleeding [...] SNOMED-CT Code Diagnosis ICD10 Code Diagnosis Note [id number] EMERALD Bermudez [address] [place] [address] 02/19/2024 10:39:30 02/19/2024 12:50:45 History of left total knee replacement 1208935509 137057 Z96.652 Pain of ri ght knee joint 7334520080 81296 M25.444 2451961 EMERALD Gómez [address] [place] [address] 04/14/2024 08:16:32 05/09/2024 16:00:01 Rotator cuff tear arthropathy 348947992 S46.012D [id number] EMERALD Gómez [address] [place] [address] 07/28/2024 09:47:54 08/15/2024 09:00:33 Bilateral shoulder joint pain 3429216824 8599040 M25.512 M25.256 [id number] MD Danny Tolentino [address] [place] [address] 09/29/2024 10:23:11 10/24/2024 11:55:19 Bilateral shoulder joint pain 1023578184 6034912 M25.512 M25.558 [id number] EMERALD Gómez [address] [place] [address] 01/05/2025 09:53:24 01/25/2025 09:36:43 Pain of left knee region 3821300200 19665 M25.562 Pes anseri nus bursitis of left knee 5803249653 161528 M70.52 Tendinitis of left rotator cuff 1965786495 2851817 M75.82 [id number] EMERALD Gómez - Danny [address] [place] [address] 04/05/2025 16:27:40 04/07/2025 10:39:49 Impingement syndrome of left shoulder region 1910822670 85929 M75.42 Impingemen t syndrome of right shoulder region 3364468206 65138 M75.41 Health Concerns Section Related Observation LastModified by Organization Detai ls LastModified Time None Recorded Concern Status LastModified by Organization Details LastModified Time None Recorded Advance Directives Directive None Recorded Payers Insurance Date Sequence Insurance Name Policy Number Policy Wilkinson Covered Member ID Wilkinson Member ID Guarantor Name 04/05/2025 1 MEMO: MEDICARE PPO BLUE (MEDICARE REPLACEMENT PPO) [id number] Carmen Chowdhury [id number] Carmen Chowdhury OBGyn Episode No OBEpisode recorded.
== END 2025-05-31 12:33 | disposition home or self-care (01) ==
LOC: HO.US 12:32
PROVIDERS: PCP Nurse Practitioner Family; Visit Provider Nurse Practitioner Family
DX: M25.422 Effusion, left elbow (principal)
CPT/HCPCS: 76882

== ENCOUNTER → 2025-05-31 13:10 | Outpatient (BNV) | payer MEDICARE, SELFPAY | PROVIDERS: PCP Nurse Practitioner Family; Visit Provider Radiology Diagnostic Radiology | DX: M79.89 Other specified soft tissue disorders (principal) | CPT/HCPCS: 76882 ==

== ENCOUNTER 2025-11-15 12:34 | Outpatient (REF) | payer MEDICARE, SELFPAY ==
--- OUTSIDE RECORDS SUMMARY | 2022-02-18 14:58 | XMS_ITS | Encounter Summary ---
Author Organization [facility] Address [address] [place] [address] [place] [phone] Phone Care Team Providers Care Experience Planning Strategist Name Role Phone Vijay Bella NP Primary Care Provider + Encounter Details Date Type Department Care Team (Late st Contact Info) Description 02/18/2022 3:58 PM EDT Hospital Encounter [facility] [address] [place] [phone] Maryanne Mena PA [address] [address] [email or web address] Social History Tobacco Use Types Packs/Day Years [...] on filedocumented in this encounter Care Teams Experience Planning Strategist Relationship Specialty Start Date End Date Vijay Bella NP [facility] [place] [address] PCP - General Family Medicine 10/05/21 documented as of this encounter Additional Source Comments The information contained in this document represents components of the legal health record. It is not the complete legal health record.[facility]
--- OUTSIDE RECORDS SUMMARY | 2024-02-04 18:05 | XMS_ITS | Encounter Summary ---
Author Organization [facility] Address [address] [place] [address] Phone Care Team Providers Care Log Hooker Name Role Phone Vijay Bella WINDOW UNIT AIR CONDITIONING MECHANIC Primary Care Provider + Encounter Details Date Type Department Care Team (Late st Contact Info) Description 02/04/2024 6:05 PM EST Hospital Encounter [facility] [address] [place] [phone] Willa Crooks, WINDOW UNIT AIR CONDITIONING MECHANIC [address] [place] [address] [email or web address] Social History Tobacco Use Types Packs/Day Years [...] Name Priority Date/Time Associated Diagnosis Comments XR KNEE 4 OR MORE VIEWS (LEFT) Urgent/patient waiting 02/04/2024 6:16 PM EST Acute pain of left knee documented in this encounter Results * XR KNEE 4 OR MORE VIEWS (LEFT) (02/04/2024 6:16 PM EST) Anatomical Region Laterality Modality Knee Left Computed Radiogr aphy 02/04/2024 6:21 PM EST Impressions 02/04/2024 6:23 PM EST Anterior soft tissue swelling and laceration. No acute fracture or dislocation. Total knee arthroplasty. No hardware complication. Small joint effusion. Enthesopathic changes at the insertion of the quadriceps tendon. Narrative 02/04/2024 6:23 PM EST XR KNEE 4 OR MORE VIEWS (LEFT) Referring clinician's provided indication for this examination in [facility]: Pain; S/P Fall; ? fx, dislocation, patient had TKR in 2019 COMPARISON: None. Procedure Note Mayur Shah MD - 02/04/2024 XR KNEE 4 OR MORE VIEWS (LEFT) Referring clinician's provided indication for this examination in [facility]:Pain; S/P Fall; ? fx, dislocation, patient had TKR in 2019 COMPARISON: None. IMPRESSION: Anterior soft tissue swelling and laceration. No acute fracture ordislocation. Total knee arthroplasty. No hardware complication. Smalljoint effusion. Enthesopathic changes at the insertion of the quadricepstendon. us Willa B Elioll WINDOW UNIT AIR CONDITIONING MECHANIC IMG XR LOWER EXTREMITY Coreen l Result documented in this encounter Visit Diagnoses Not on filedocumented in this encounter Care Teams Log Hooker Relationship Specialty Start Date End Date Vijay Bella NP [facility] [place] [address] PCP - General Family Medicine 10/05/21 documented as of this encounter Additional Source Comments The information contained in this document represents components of the legal health record. It is not the complete legal health record.[facility]
--- OUTSIDE RECORDS SUMMARY | 2024-10-13 10:00 | XMS_ITS | Encounter Summary ---
Author Organization [facility] Address [address] [place] [address] [place] [id number] Phone Care Team Providers Care Outdoor Power Equipment Mechanic Name Role Phone Vijay Bella NP Primary Care Provider + Encounter Details Date Type Department Care Team (Late st Contact Info) Description 10/13/2024 10:00 AM EST Hospital Encounter [facility] [address] [place] [id number] Tamie Preston FNP [address] [place] [id number] [email or web address] Social History Tobacco Use Types Packs/Day Years [...] Name Priority Date/Time Associated Diagnosis Comments XR TIBIA FIBULA 2 VIEWS (LEFT) Urgent/patient waiting 10/13/2024 10:08 AM EST Nonhealing nonsurgical wound documented in this encounter Results * XR Tibia Fibula 2 Views (Left) (10/13/2024 10:08 AM EST) Anatomical Region Laterality Modality Leg Left Computed Radiogr aphy 10/13/2024 10:3 5 AM EST Impressions 10/13/2024 10:39 AM EST FINDINGS/IMPRESSION: * Overlying gauze in the distal calf at site of reported wound, limiting evaluation of the soft tissues. Possible focal lucency along the medial aspect of the distal calf soft tissues on the AP view measuring approximately 1.6 x 1.3 cm. * No associated cortical irregularity to suggest osteomyelitis. * Partially seen knee prosthesis. Interval decrease/resolution of previously seen focal soft tissue swelling in the infrapatellar region * Ankle mortise is maintained. Narrative 10/13/2024 10:39 AM EST XR TIBIA FIBULA 2 VIEWS (LEFT) Referring clinician's provided indication for this examination in [facility]: Trauma; month old deep wound, non healing, r/o osteo COMPARISON: XR KNEE 4 OR MORE VIEWS (LEFT) Procedure Note Jami Maddox MD - 10/13/2024 XR TIBIA FIBULA 2 VIEWS (LEFT) Referring clinician's provided indication for this examination in [facility]:Trauma; month old deep wound, non healing, r/o osteo COMPARISON: XR KNEE 4 OR MORE VIEWS (LEFT) IMPRESSION: FINDINGS/IMPRESSION: * Overlying gauze in the distal calf at site of reported wound, limitingevaluation of the soft tissues. Possible focal lucency along the medialaspect of the distal calf soft tissues on the AP view measuringapproximately 1.6 x 1.3 cm. * No associated cortical irregularity to suggest osteomyelitis. * Partially seen knee prosthesis. Interval decrease/resolution ofpreviously seen focal soft tissue swelling in the infrapatellar region * Ankle mortise is maintained. Tamie Preston INSTRUCTOR EXTENSION WORK IMG XR LOWER EXTREMITY Coreen l Result documented in this encounter Visit Diagnoses Not on filedocumented in this encounter Care Teams Outdoor Power Equipment Mechanic Relationship Specialty Start Date End Date Vijay Bella NP [facility] [place] [id number] PCP - General Family Medicine 10/05/21 documented as of this encounter Additional Source Comments The information contained in this document represents components of the legal health record. It is not the complete legal health record.[facility]
--- OUTSIDE RECORDS SUMMARY | 2025-04-19 17:05 | XMS_ITS | Encounter Summary ---
Author Organization [facility] Address [address] [place] [address] [place] [address] Phone Care Team Providers Care Field Spec Name Role Phone Vijay Bella THAW SHED HEATER TENDER Primary Care Provider + Encounter Details Date Type Department Care Team (Late st Contact Info) Description 04/19/2025 6:05 PM EDT Hospital Encounter [facility] [address] [place] [phone] Camille Unger CNP [address] [place] [address] Social History Tobacco Use Types Packs/Day Years [...] No radiopaque foreign body. Procedure Note Consuelo Escalear MBBS - 04/19/2025 XR ELBOW 3 OR [...] posterior aspectof the elbow. us Camille Unger SLEEVE SEWER IMG XR UPPER EXTREMITY Coreen l Result documented in this encounter Visit Diagnoses Not on filedocumented in this encounter Care Teams Field Spec Relationship Specialty Start Date End Date Vijay Bella NP [facility] [place] [address] PCP - General Family Medicine 10/05/21 documented as of this encounter Additional Source Comments The information contained in this document represents components of the legal health record. It is not the complete legal health record.[facility]
[2025-11-15 13:48] LABS: Alanine Aminotransferase 11 U/L (0-31); Albumin Level 4.3 g/dL (3.5-5.0); Alkaline Phosphatase 77 U/L (39-117); Anion Gap 12 (12-20); Aspartate Amino Transferase 18 U/L (5-31); Blood Urea Nitrogen 15 mg/dL (9-16); Calcium 9.6 mg/dL (8.4-10.2); Carbon Dioxide 28 mmol/L (22-29); Chloride 98 mmol/L (96-108); Estimated Glomerular Filt Rate 58; Potassium 3.2 mmol/L (3.3-5.1); Sodium 135 mmol/L (135-145); Total Protein 6.7 g/dL (6.5-8.0)
--- OUTSIDE RECORDS SUMMARY | 2025-11-15 16:26 | XMS_ITS | Patient Health Record ---
Author Organization [facility] Address [address] [place] [address] Care Team Providers Care Esthetician Name Role Phone Umang Lockhart MD Primary Care Provider Unavailelli campbell Adeel Liana Unavailable [phone] Allergies Allergen (clinical drug ingredient) Drug/Non Drug [...] Status W/U Status Risk Notes Problem Onychomycosis (110531312) Onychomycosis (110.1) Active confirmed Problem Pain in limb (96094094) Pain in Limb (729.5) Active confirmed Problem Hammer toe (873061606) Hammer toe (735.4) Active confirmed Problem Ganglion cyst (48579087) Ganglion Cyst (727.43) Active confirmed Plan Of Treatment Pending Test Test Name Order Date 44034-VVNJVSH NAIL, 1-5 11/13/2014 Insurance Providers Payer Name Payer Address Payer Phone Subscriber Number Group Number Insured Name Patient Relationship to Insured Coverage Start Date Coverage End Date [facility] [address] [place] [address] [id number] Christiano Chowdhury Spouse - patient is the spouse of the insured Medical (General) History Medical History History ICD Code High blood pressure Reflux chronic sinusitis Thyroid disorder Measles Mumps Chicken pox
--- OUTSIDE RECORDS SUMMARY | 2025-11-15 16:27 | XMS_ITS | Patient Health Record ---
Author Organization [facility] Address [address] [facility] [address] [place] [address] Care Team Providers Care Suction Worker Name Role Phone Adry Belén Unavailable [phone] Nohemi Kendrick Unavailable Unavailable Meme Briseno Unavailable [phone] Jorge Alberto Swift Unavailable [phone] Allergies Allergen (clinical drug ingredient) Drug/Non Drug [...] Duration) Notes Start Date End Date Status Omeprazole 40 MG 1 capsule 1/2 to 1 h our before morning meal Orally Once a day; Duration: 30 day(s) 10/18/2024 Active Levothyroxine Sodium 50 MCG 1 tablet in the morning on an empty stomach Orally Once a day; Duration: 30 day(s) 10/18/2024 Active Cetirizine HCl 10 MG 1 tablet Orally Onc e a day; Duration: 30 day(s) 10/18/2024 Active Fenofibrate 54 MG 1 tablet with food [...] Status Risk Notes Problem Vitamin D deficiency (47102127) Vitamin D deficiency, unspecified (E55.9) Active confirmed Problem Cellulitis of left upper limb (41871722152220226) Cellulitis of left upper limb (L03.114) Active confirmed Problem 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) Active confirmed Problem Unspecified open wound of left elbow, subsequent encounter (S51.002D) Active confirmed Problem Arthritis (7554977) Arthritis (M19.90) Active confirmed Problem Hypertension (17025397) Hypertension (I10) Active confirmed Problem Gastroesophageal reflux disease (418442402) GERD (gastroesophage al reflux disease) (K21.9) Active confirmed Problem Allergic rhinitis (48225511) Allergic rhinitis (J30.9) Active confirmed Problem Hypothyroid (07437360) Hypothyroid (E03.9) Active confirmed Problem Osteoporosis (60197435) Osteoporosis (M81.0) Active confirmed Vital Signs Heart Rate 71 /min 06/06/2025 Temperature 97.6 degrees Fahrenheit 06/06/2025 Respiratory Rate 16 /min 06/06/2025 Blood pressure diastolic 76 mm Hg 06/06/2025 Oximetry 96 % 06/06/2025 Height-cm 154.94 cm 06/06/2025 Weight-kg 68.95 kg 06/06/2025 Height 61 in 06/06/2025 Blood pressure systolic 120 mm Hg 06/06/2025 Weight 152 lbs 06/06/2025 BMI 28.72 kg/m2 06/06/2025 Encounters Encounter Location Date Provider Diagnosis [facility] [address] [address] 11/28/2024 Meme Briseno Non-pressure chronic ulcer of other part of left lower leg with fat layer exposed L97.822 ; Hypertension I10 and Hypothyroid E03.9 [facility] [address] [address] 12/12/2024 Meme Briseno Non-pressure chronic ulcer of other part of left lower leg with fat layer exposed L97.822 ; Hypertension I10 and Hypothyroid E03.9 [facility] [address] [address] 05/09/2025 Belén Rider Unspecified open wound of left elbow, initial encounter S51.002A ; Localized edema R60.0 and Local infection of skin and subcutaneous tissue L08.9 [facility] [address] [place] [address] 05/19/2025 Belén Rider Unspecified open wound of left elbow, subsequent encounter S51.002D [facility] [address] [address] 05/30/2025 Jorge Alberto Swift Unspecified open wound of left elbow, subsequent encounter S51.002D [facility] [address] [address] 06/06/2025 Jorge Alberto Swift Unspecified open wound of left elbow, subsequent encounter S51.002D and Cellulitis of left upper limb L03.114 [facility] [address] [place] [address] 05/10/2025 Anzfraciscoa Isauraa [facility] [address] [place] [address] 05/30/2025 Anzhela Vamsionina [facility] [address] [place] [address] 05/30/2025 Anzhela Vamsionina [facility] [address] [place] [address] 05/30/2025 Anpatriciaa Adry Assessments Encounter Date Diagnosis (ICD Code) Assessment Notes Treatment Notes Treatment Clinical Notes Section Notes 11/28/2024 Non-pressure chronic ulcer of other part [...] Change every other day. 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 Call sooner [...] She does not need a f/u. I, Meem DELVALLE, examined, evaluated , and treated the [...] per patient. I will request record from [facility]. Begin cleaning the wound with saline [...] left elbow, subsequent encounter (ICD-10 - S51.002D) 06/06/2025 Cellulitis of left upper limb (ICD-10 - L03.114) 06/06/2025 Unspecified open wound of left elbow, subsequent encounter (ICD-10 - S51.002D) 05/09/2025 Local infection of skin and subcutaneous tissue (ICD-10 - L08.9) 12/12/2024 Hypertension (ICD-10 - I10) 11/28/2024 Hypertension (ICD-10 - I10) 11/28/2024 Hypothyroid (ICD-10 - E03.9) 12/12/2024 Hypothyroid [...] concerns that I may have had. I, Curits Romero MD confirm that Belén DELVALLE understands [...] was drained. script to obtain U/S at [facility]. She states will go after the appointment. I ISAÍAS Bain, DIRECT OF REAL ESTATE, FUR STORAGE CLERK-C, examined, evaluated and treated the patient. Dr. Carin Romero was available for any question or concerns that I may have had. ICurtis MD confirm that Jorge Alberto Jeniffer, MSN, DIRECT OF REAL ESTATE, FUR STORAGE CLERK-C understands and adheres to the guidelines of the established clinical protocols in the office. I confirm the above care provided was rendered under my general supervision as initially planned and subsequently discussed and supervised by me. 06/06/2025 Other On exam, Mima is afebrile and all other vital signs are stable. Nursing removed the dressing and I examined the wound located on the left elbow. There are no s/s of infectious property noted. Left elbow wound is noted has improved today based on assessment and measurements from last visit. The wound bed is noted with granulation and periwound with minimal fibrinous rim. There is a decrease in drainage as well. I discussed the indication for debridement and patient was agreeable. I thereafter performed debridement of the wound to remove devitalized tissue as outlined above.. She tolerated procedure well Nursing cleaned the wound with saline and Xeroform was applied to the wound bed, zinc to periwound secured with dcd I recommended changing from Aquacel to Xeroform due to decreased drainage continue with the above dressing changes every day. Continue with weekly wound care FU US obtained and negative for acute pathology PE patient report, will have office obtain actual US report reviewing I Jorge Alberto Swift, MSN, DIRECT OF REAL ESTATE, FUR STORAGE CLERK-C, examined, evaluated and treated the patient. Dr. Carin Romero was available for any question or concerns that I may have had. I, Curtis Romero MD confirm that Jorge Alberto Swift, MSN, DIRECT OF REAL ESTATE, FUR STORAGE CLERK-C understands and adheres to the guidelines of the established clinical protocols in the office. I confirm the above care provided was rendered under my general supervision as initially planned and subsequently discussed and supervised by me. Plan Of Treatment No Information Insurance Providers Payer Name Payer Address Payer Phone Subscriber Number Group Number Insured Name Patient Relationship to Insured Coverage Start Date Coverage End Date [facility] ([facility]) [address] [place], [place] [phone] [id number] Carmen Chowdhury Self - patient is the [...]
--- OUTSIDE RECORDS SUMMARY | 2025-11-15 16:27 | XMS_ITS | Clinical Summary ---
Author Organization [facility] Address [address] [place] [address] Phone Care Team Providers Care Assistant Professor Of Surgery Name Role Phone Vijay Bella NP Primary Care Provider + Allergies Active Allergy Reactions Criticality Noted Date Comments Sulfamethoxazole-Trimethoprim 2020 Lisinopril 10/05/2021 Naproxen Unknown 04/28/2018 Oxycodone-Acetaminophen Unknown 04/28/2018 Medications amLODIPine (NORVASC) 10 MG tablet Take 10 mg by mouth daily. Active atorvastatin (LIPITOR) 40 MG tablet Take 60 mg by mouth daily. Active atenolol (TENORMIN) 25 MG tablet Take 25 mg by mouth daily. Active levothyroxine (SYNTHROID, LEVOTHROID) 50 MCG tablet Take 50 mcg by mouth every morning. Active cholecalciferol (VITAMIN D3) 25 MCG (1,000 unit) tablet Take 1,000 Units by mouth daily. Active cetirizine (ZYRTEC) 10 MG tablet Take 10 mg by mouth 2 (two) times a day (once in the morning and once in the afternoon). Active fenofibrate (TRICOR) 145 MG tablet Take 54 mg by mouth daily. Active hydroCHLOROthia zide (HYDRODIURIL) 25 MG tablet 01/16/2022 Active omeprazole (PRILOSEC) 40 MG capsule 01/13/2022 Active potassium chloride SA (K-DUR,KLOR-CON ) 10 MEQ ER tablet 01/13/2022 Active ciclopirox (CICLODAN) 0.77 % cream 09/23/2023 Active ezetimibe (ZETIA) 10 mg tablet 09/25/2023 Active fenofibrate (LOFIBRA) 54 MG tablet 08/10/2023 Active LINZESS 72 mcg capsule 01/04/2024 Active terbinafine HCL (LAMISIL) 250 mg tablet TAKE 1 TABLET BY MOUTH EVERY DAY FOR 4 WEEKS 01/28/2024 Active amLODIPine (NORVASC) 5 MG tablet 11/26/2023 Active Active Problems Problem Noted Date Diagnosed Date 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 Overview (04/19/2025): Problem Code: M19.011; Problem Code Type: ICD-10; Status: 'A'; Immunizations Immunization Administration Dates Next Due Tdap 02/04/2024 Social History Tobacco Use Types Packs/Day Years Used Date Smoking Tobacco: Former Smokeless Tobacco: Never Tobacco Cessation:Counseling Given: Not Answered Education Answer Date Recorded Are you interested [...] on file Sexual Orientation Not on file Last Filed Vital Signs Vital Sign Reading Time Taken Comments Blood Pressure 164/72 04/19/2025 5:52 PM EDT Pulse 68 04/19/2025 5:52 PM EDT Temperature 36.9 C (98.5 F) 04/19/2025 5:52 PM EDT Respiratory Rate 16 04/19/2025 5:52 PM EDT Oxygen Saturation 98% 04/19/2025 5:52 PM EDT Inhaled Oxygen Concentration - - Weight 71.2 kg (157 lb) 04/19/2025 5:52 PM EDT Height 154.9 cm (5' 1 ) 04/19/2025 5:52 PM EDT Body Mass Index 29.66 04/19/2025 5:52 PM EDT Plan of Treatment Health Maintenance Due Date Last Done Comments LIPID PANEL 1954 POTASSIUM LEVEL 1954 TSH LEVEL 1954 DEPRESSION SCREENING 1966 SMOKING Hx and SMOKELESS TOBACCO SCREENING 1967 HEPATITIS C SCREENING 1972 MAMMOGRAM 1994 COLONOSCOPY 1999 FIT TEST 1999 FOBT 1999 SIGMOIDOSCOPY 1999 VIRTUAL COLONOSCOPY 1999 PNEUMOCOCCAL VACCINES (50+ years) (1 of 1 - PCV) 2004 ZOSTER VACCINES (1 of 2) 2004 OSTEOPOROSIS SCREENING INITI AL (ONE-TIME) 2019 INFLUENZA VACCINE (#1) 2025 COVID-19 VACCINE ( - 2024-2 6 season) 2025 12/05/2021, 07/24/2021, 07/03/2021 COLOGUARD 10/12/2027 10/12/2024 COLORECTAL CANCER SCREENING 10/12/2027 RSV VACCINE (1 - 1-dose 75+ series) 2029 Adult Td,Tdap Booster 02/03/2034 02/04/2024 HEPATITIS A VACCINES Aged Out No long er eligible based on patient's age to complete this topic HIB VACCINES Aged Out No longer eligi ble based on patient's age to complete this topic MENINGOCOCCAL VACCINES (ACWY) Aged Out No longer eligible based on patient's age to complete this topic MENINGOCOCCAL VACCINES (B) Aged Out N o longer eligible based on patient's age to complete this topic Medical Devices Not on file Insurance [place]IC[place] PPO [place] [address] [place] [address] MEDICARE PPO [place] [address] [place] [address] MEDICARE PPO BLUE REPLACEMENT MEDICARE PPO [place] [address] [place] [address] MEDICARE PPO BLUE REPLACEMENT MEDICARE PPO BLUE REPLACEMENT MEDICARE PPO [place] [address] [place] [address] MEDICARE PPO BLUE REPLACEMENT [place] BLUE REPLACEMENT Care Teams Assistant Professor Of Surgery Relationship Specialty Start Date End Date Vijay Bella NP [address] [place] [address] PCP - General Family Medicine 10/05/21 Additional Source Comments The information contained in this document represents components of the legal health record. It is not the complete legal health record.[facility]
== END 2025-11-15 12:35 | disposition home or self-care (01) ==
LOC: HO.10HDL 12:34
PROVIDERS: Visit Provider Nurse Practitioner Family
DX: E87.6 Hypokalemia (principal)
CPT/HCPCS: 36415; 80053

== ENCOUNTER 2025-11-28 10:30 | Outpatient (REF) | payer MEDICARE, SELFPAY ==
--- OUTSIDE RECORDS SUMMARY | 2022-02-18 14:58 | XMS_ITS | Encounter Summary ---
Author Organization [facility] Address [address] [place] [address] [place] [phone] Phone Care Team Providers Care Sports Fitness And Wellness Director Name Role Phone Vijay Bella NP Primary Care Provider + Encounter Details Date Type Department Care Team (Late st Contact Info) Description 02/18/2022 3:58 PM EDT Hospital Encounter [facility] [address] [place] [phone] Maryanne Mena PA [address] [address] [email or web address] Social History Tobacco Use Types Packs/Day Years Used Date Smoking Tobacco: Former Smokeless Tobacco: Never Education Answer Date Recorded Are you interested in more education? Not on nell e 03/27/2023 Are you concerned about learning? Not on file 03/27/2023 No 03/27/2023 No 03/27/2023 Digital Access Answer Date Recorded No 04/25/2023 No 04/25/2023 Reliable internet access at home? Not on file 04/25/2023 Device with a working camera? Not on file Comments Unknown Sex and Gender Information Value Date Recorded Sex Assigned at Not on file Legal Sex Female 9:57 PM EDT Gender Identity Not on file Sexual Orientation Not on file documented as of this encounter Plan of Treatment Not on file documented as of this encounter Procedures Procedure Name Priority Date/Time Associated Diagnosis Comments XR WRIST 3 OR MORE VIEWS (LEFT) Urgent/patient waiting 02/18/2022 4:08 PM EDT Left wrist sprain, initial encounter documented in this encounter Results * XR WRIST 3 OR MORE VIEWS (LEFT) (02/18/2022 4:08 PM EDT) Anatomical Region Laterality Modality Wrist Left Computed Radiogr aphy 02/18/2022 4:13 PM EDT Impressions 02/18/2022 4:17 PM EDT No fracture or dislocation. ATTESTATION: Brittani Soriano as teaching physician, have reviewed the images for this case and if necessary edited the report originally created by Benjamin Wahl. Narrative 02/18/2022 4:17 PM EDT XR WRIST 3 OR MORE VIEWS (LEFT) COMPARISON: None FINDINGS: No fracture. Normal alignment. Joint space narrowing of the radiocarpal joint. Mild soft tissue swelling overlying the distal ulna. Diffuse osteopenia. Procedure Note Brittani Fontanez MD - 02/18/2022 XR WRIST 3 OR MORE VIEWS (LEFT) COMPARISON: None FINDINGS: No fracture. Normal alignment. Joint space narrowing of the radiocarpaljoint. Mild soft tissue swelling overlying the distal ulna. Diffuseosteopenia. IMPRESSION: No fracture or dislocation. ATTESTATION: Brittani Soriano as teaching physician, have reviewed theimages for this case and if necessary edited the report originally createdby Benjamin Wahl. Maryanne GUERRERO IMG XR UPPER EXTREMITY Final Result documented in this encounter Visit Diagnoses Not on filedocumented in this encounter Care Teams Sports Fitness And Wellness Director Relationship Specialty Start Date End Date Vijay Bella NP [facility] [place] [id number] PCP - General Family Medicine 10/05/21 documented as of this encounter Additional Source Comments The information contained in this document represents components of the legal health record. It is not the complete legal health record.[facility]
--- OUTSIDE RECORDS SUMMARY | 2024-02-04 18:05 | XMS_ITS | Encounter Summary ---
Author Organization [facility] Address [address] [facility] [address] [place] [address] Phone Care Team Providers Care Food Services Manager Name Role Phone Vijay Bella CLINIC OFFICE COORDINATOR Primary Care Provider + Encounter Details Date Type Department Care Team (Late st Contact Info) Description 02/04/2024 6:05 PM EST Hospital Encounter [facility] [address] [place] [phone] Willa Crooks, CLINIC OFFICE COORDINATOR [address] [place] [address] [email or web address] Social History Tobacco Use Types Packs/Day Years [...] clinician's provided indication for this examination in [facility]: Pain; S/P Fall; ? fx, dislocation, patient had TKR in 2019 COMPARISON: None. Procedure Note Mayur Shah MD - 02/04/2024 XR KNEE 4 OR MORE VIEWS (LEFT) Referring clinician's provided indication for this examination in [facility]:Pain; S/P Fall; ? fx, dislocation, patient had TKR in 2019 COMPARISON: None. IMPRESSION: Anterior soft tissue swelling and laceration. No acute fracture ordislocation. Total knee arthroplasty. No hardware complication. Smalljoint effusion. Enthesopathic changes at the insertion of the quadricepstendon. us Willa B Elioll CLINIC OFFICE COORDINATOR IMG XR LOWER EXTREMITY Coreen l Result documented in this encounter Visit Diagnoses Not on filedocumented in this encounter Care Teams Food Services Manager Relationship Specialty Start Date End Date Vijay Bella NP [facility] [place] [address] PCP - General Family Medicine 10/05/21 documented as of this encounter Additional Source Comments The information contained in this document represents components of the legal health record. It is not the complete legal health record.[facility]
--- OUTSIDE RECORDS SUMMARY | 2024-10-13 10:00 | XMS_ITS | Encounter Summary ---
Author Organization [facility] Address [address] [place] [address] [place] [phone] Phone Care Team Providers Care Asp Developer Name Role Phone Vijay Bella NP Primary Care Provider + Encounter Details Date Type Department Care Team (Late st Contact Info) Description 10/13/2024 10:00 AM EST Hospital Encounter [facility] [address] [place] [phone] Tamie Preston FNP [address] [place] [phone] [email or web address] Social History Tobacco Use Types Packs/Day Years [...] clinician's provided indication for this examination in [facility]: Trauma; month old deep wound, non healing, r/o osteo COMPARISON: XR KNEE 4 OR MORE VIEWS (LEFT) Procedure Note Jami Maddox MD - 10/13/2024 XR TIBIA FIBULA 2 VIEWS (LEFT) Referring clinician's provided indication for this examination in [facility]:Trauma; month old deep wound, non healing, r/o [...] * Ankle mortise is maintained. Tamie Preston ENTRY LEVEL MANAGER IMG XR LOWER EXTREMITY Coreen l Result documented in this encounter Visit Diagnoses Not on filedocumented in this encounter Care Teams Asp Developer Relationship Specialty Start Date End Date Vijay Bella NP [facility] [place] [id number] PCP - General Family Medicine 10/05/21 documented as of this encounter Additional Source Comments The information contained in this document represents components of the legal health record. It is not the complete legal health record.[facility]
--- OUTSIDE RECORDS SUMMARY | 2025-04-19 17:05 | XMS_ITS | Encounter Summary ---
Author Organization [facility] Address [address] [place] [address] [place] [phone] Phone Care Team Providers Care Healthcare Receptionist Name Role Phone Vijay Bella RAILROAD CAR LOADER Primary Care Provider + Encounter Details Date Type Department Care Team (Late st Contact Info) Description 04/19/2025 6:05 PM EDT Hospital Encounter [facility] [address] [place] [id number] Camille Unger CNP [address] [place] [address] Social History Tobacco Use Types Packs/Day Years [...] Name Priority Date/Time Associated Diagnosis Comments XR ELBOW 3 OR MORE VIEWS (LEFT) Urgent/patient waiting 04/19/2025 6:18 PM EDT Pain and swelling of elbow, left documented in this encounter Results * XR ELBOW 3 OR MORE VIEWS (LEFT) (04/19/2025 6:18 PM EDT) Anatomical Region Laterality Modality Elbow Left Computed Radiogr aphy 04/19/2025 6:50 PM EDT Impressions 04/19/2025 6:52 PM EDT No fracture or dislocation. No radiographic evidence of osteomyelitis. Mild soft tissue swelling with small amount of gas in the posterior aspect of the elbow. Narrative 04/19/2025 6:52 PM EDT XR ELBOW 3 OR MORE VIEWS (LEFT) Referring clinician's provided indication for this examination in Epic: Infection; Status post steroid injection 2 months ago, scabbed, now hole without drainage, surrounding erythema and swelling COMPARISON: None FINDINGS: No fracture. Normal alignment. Normal joint spaces. No effusion. Soft tissue swelling in the posterior aspect of the elbow with small amount of gas. No radiopaque foreign body. Procedure Note Consuelo Escalera MBBS - 04/19/2025 XR ELBOW 3 OR MORE VIEWS (LEFT) Referring clinician's provided indication for this examination in Epic:Infection; Status post steroid injection 2 months ago, scabbed, now holewithout drainage, surrounding erythema and swelling COMPARISON: None FINDINGS: No fracture. Normal alignment. Normal joint spaces. No effusion. Softtissue swelling in the posterior aspect of the elbow with small amount ofgas. No radiopaque foreign body. IMPRESSION: No fracture or dislocation. No radiographic evidence of osteomyelitis.Mild soft tissue swelling with small amount of gas in the posterior aspectof the elbow. us Camille Unger INTEGRATED CAMPAIGN MANAGER IMG XR UPPER EXTREMITY Coreen l Result documented in this encounter Visit Diagnoses Not on filedocumented in this encounter Care Teams Healthcare Receptionist Relationship Specialty Start Date End Date Vijay Bella NP [facility] [place] [address] PCP - General Family Medicine 10/05/21 documented as of this encounter Additional Source Comments The information contained in this document represents components of the legal health record. It is not the complete legal health record.[facility]
[2025-11-28 13:42] LABS: Alanine Aminotransferase 11 U/L (0-31); Albumin Level 4.2 g/dL (3.5-5.0); Alkaline Phosphatase 85 U/L (39-117); Anion Gap 14 (12-20); Aspartate Amino Transferase 18 U/L (5-31); Blood Urea Nitrogen 14 mg/dL (9-16); Calcium 9.9 mg/dL (8.4-10.2); Carbon Dioxide 27 mmol/L (22-29); Chloride 100 mmol/L (96-108); Estimated Glomerular Filt Rate > 60; Potassium 3.8 mmol/L (3.3-5.1); Sodium 137 mmol/L (135-145); Total Protein 6.7 g/dL (6.5-8.0)
--- OUTSIDE RECORDS SUMMARY | 2025-11-28 14:07 | XMS_ITS | Clinical Summary ---
Author Organization [facility] Address [address] [place] [address] Phone Care Team Providers Care Equine Breeder Name Role Phone Vijay Bella NP Primary [...] [place] [address] [address] [place] [address] MEDICARE PPO [place] [address] [address] [place] [address] MEDICARE PPO BLUE REPLACEMENT MEDICARE PPO [place] [address] [place] [address] MEDICARE PPO BLUE REPLACEMENT MEDICARE PPO BLUE REPLACEMENT MEDICARE PPO [place] [address] [place] [address] MEDICARE PPO BLUE REPLACEMENT [place] BLUE REPLACEMENT Care Teams Equine Breeder Relationship Specialty Start Date End Date Vijay Bella NP [address] [place] [address] PCP - General Family Medicine 10/05/21 Additional Source Comments The information contained in this document represents components of the legal health record. It is not the complete legal health record.[facility]
--- OUTSIDE RECORDS SUMMARY | 2025-11-28 14:07 | XMS_ITS | Patient Health Record ---
Author Organization [facility] Address [address] [facility] [address] [place] [address] Care Team Providers Care Laborer Ammunition Assembly Name Role Phone Adry Belén Unavailable [phone] Nohemi Kendrick Unavailable Unavailable Meme Briseno Unavailable [phone] Jorge Alberto Swift Unavailable [phone] Allergies Allergen (clinical drug ingredient) Drug/Non Drug [...] Date End Date Status Omeprazole 40 MG Capsule Delayed Release 1 capsule 1/2 to 1 hour before morning meal Orally Once a day; Duration: 30 day(s) 10/18/2024 Active Levothyroxine Sodium 50 MCG Tablet 1 tablet in the morning on an empty stomach Orally Once a day; Duration: 30 day(s) 10/18/2024 Active Cetirizine HCl 10 MG Tablet 1 tablet Ora lly Once a day; Duration: 30 day(s) 10/18/2024 Active Fenofibrate 54 MG Tablet 1 tablet with f ood Orally Once a day; Duration: 30 day(s) 10/18/2024 Active Atenolol 25 MG Tablet 1 tablet Orally On ce a day; Duration: 30 day(s) 10/18/2024 Active Atorvastatin Calcium 40 MG Tablet 1 tablet Orally Once a day; Duration: 30 day(s) 10/18/2024 Active Ezetimibe 10 MG Tablet 1 tablet Orally O nce a day; Duration: 30 day(s) 10/18/2024 Active amLODIPine Besylate 5 MG Tablet 1 tablet Orally Once a day; Duration: 30 day(s) 10/18/2024 Active Social History Section Notes: Former smoker Lives at home with spouse Retired Problems Problem Type SNOMED Code ICD Code Onset Dates Problem Status W/U Status Risk Notes Problem Vitamin D deficiency (42532801) Vitamin D deficiency, unspecified (E55.9) Active confirmed Problem Cellulitis of left upper limb (54684831512688254) Cellulitis of left upper limb (L03.114) Active confirmed Problem 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) Active confirmed Problem Unspecified open wound of left elbow, subsequent encounter (S51.002D) Active confirmed Problem Arthritis (4213070) Arthritis (M19.90) Active confirmed Problem Hypertension (26538409) Hypertension (I10) Active confirmed Problem Gastroesophageal reflux disease (742270770) GERD (gastroesophage al reflux disease) (K21.9) Active confirmed Problem Allergic rhinitis (24503214) Allergic rhinitis (J30.9) Active confirmed Problem Hypothyroid (98002396) Hypothyroid (E03.9) Active confirmed Problem Osteoporosis (15998939) Osteoporosis (M81.0) Active confirmed Vital Signs Heart [...] 06/06/2025 Encounters Encounter Location Date Provider Diagnosis [address] [address] 11/28/2024 Meme Briseon Non-pressure chronic ulcer of other part of left lower leg with fat layer exposed L97.822 ; Hypertension I10 and Hypothyroid E03.9 [facility] [address] [place] [address] 12/12/2024 Meme Briseno Non-pressure chronic ulcer of other part of left lower leg with fat layer exposed L97.822 ; Hypertension I10 and Hypothyroid E03.9 [facility] [address] [facility] [address] [facility] [address] [place] [address] 05/09/2025 Anzhela Vamsionina Unspecified open wound of left elbow, initial encounter S51.002A ; Localized edema R60.0 and Local infection of skin and subcutaneous tissue L08.9 [facility] [address] [place] [address] 05/19/2025 Anzhela Vamsionina Unspecified open wound of left elbow, subsequent encounter S51.002D [facility] [address] [facility] [address] [facility] [address] [place] [address] 05/30/2025 Jorge Alberto Swift Unspecified open wound of left elbow, subsequent encounter S51.002D [facility] [address] [facility] [address] [facility] [address] [place] [address] 06/06/2025 Jorge Alberto Mistrynne Unspecified open wound of left elbow, subsequent encounter S51.002D and Cellulitis of left upper limb L03.114 [facility] [address] [place] [address] 05/10/2025 Anzhela Savonina [facility] [address] [place] [address] 05/30/2025 Anzhela Savonina [facility] [address] [place] [address] 05/30/2025 Anzhela Savonina [facility] [address] [place] [address] 05/30/2025 Anzhela Vamsionina Assessments Encounter Date Diagnosis (ICD Code) Assessment [...] Change every other day. 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 Call sooner [...] does not need a f/u. I, Meme AQUINO-Hansel, examined, evaluated , and [...] per patient. I will request record from [facility]. Begin cleaning the wound with saline [...] was drained. script to obtain U/S at [facility]. She states will go after the appointment. I Jorge Alberto Swift, MSN, PATIENT TRANSPORT OFFICER, MECHANICAL ENGINEERING TECHNOLOGIST-C, examined, evaluated and treated the patient. Dr. Carin Romero was available for any question or concerns that I may have had. I, Curtis Romero MD confirm that Jorge Alberto Swift MSN, PATIENT TRANSPORT OFFICER, MECHANICAL ENGINEERING TECHNOLOGIST-C understands and adheres to the guidelines of [...] report reviewing I Jorge Alberto Swift, MSN, PATIENT TRANSPORT OFFICER, MECHANICAL ENGINEERING TECHNOLOGIST-C, examined, evaluated and treated the patient. Dr. Carin Romero was available for any question or concerns that I may have had. I, Curtis Romero MD confirm that ISAÍAS Bain, PATIENT TRANSPORT OFFICER, MECHANICAL ENGINEERING TECHNOLOGIST-C understands and adheres to the guidelines of [...] Insured Coverage Start Date Coverage End Date [facility] ([facility]) [address] [place], [place] [id number] Carmen Chowdhury Self - patient is the [...]
--- OUTSIDE RECORDS SUMMARY | 2025-11-28 14:07 | XMS_ITS | Patient Health Record ---
Author Organization [facility] Address [address] [facility] [place] [address] Care Team Providers Care District Fire Chief Name Role Phone Umang Lockhart MD Primary Care Provider Unavailelli campbell Adeel Liana Unavailable [phone] Allergies Allergen (clinical drug ingredient) Drug/Non Drug [...] Status W/U Status Risk Notes Problem Onychomycosis (300550272) Onychomycosis (110.1) Active confirmed Problem Pain in limb (35150181) Pain in Limb (729.5) Active confirmed Problem Hammer toe (823536538) Hammer toe (735.4) Active confirmed Problem Ganglion cyst (28761046) Ganglion Cyst (727.43) Active confirmed Plan Of Treatment Pending Test Test Name Order Date [id number] NAIL, 1-5 11/13/2014 Insurance Providers Payer Name Payer Address Payer Phone Subscriber Number Group Number Insured Name Patient Relationship to Insured Coverage Start Date Coverage End Date [facility] [address] [place] [address] [id number] Christiano Chowdhury Spouse - patient is the spouse of the insured Medical (General) History Medical History History ICD Code High blood pressure Reflux chronic sinusitis Thyroid disorder Measles Mumps Chicken pox
== END 2025-11-28 10:31 | disposition home or self-care (01) ==
LOC: HO.10HDL 10:30
PROVIDERS: Visit Provider Nurse Practitioner Family
DX: E87.6 Hypokalemia (principal)
CPT/HCPCS: 36415; 80053